=== PATIENT | male | born 1950 | race Caucasian/White ===

== ENCOUNTER 2016-10-01 14:00 | Outpatient (RCR) | payer MEDICARE, MEDICAID | END 2016-10-07 12:00 | disposition home or self-care (01) | LOC: ST 14:00 | PROVIDERS: ATTEND Family Medicine | DX: R05 Cough (principal); G20 Parkinson's disease; R13.19 Other dysphagia | CPT/HCPCS: 92526; 92610; G8996; G8997 ==

== ENCOUNTER → 2016-10-04 | Outpatient (CLI) | payer MEDICARE, MEDICAID | LOC: EMS 16:07 | DX: Z53.20 Procedure and treatment not carried out because of patient's decision for unspecified reasons (principal) ==

== ENCOUNTER → 2016-10-08 | Outpatient (CLI) | payer MEDICARE, MEDICAID | LOC: EMS 12:34 | DX: Z53.20 Procedure and treatment not carried out because of patient's decision for unspecified reasons (principal) ==

== ENCOUNTER → 2016-11-30 | Outpatient (CLI) | payer MEDICARE, MEDICAID ==
[~2016-11-30] MED LIST: ASPI-586 PO; ATOR80TA PO; ATOR80TA73 PO; CARB200T PO; CARV6.25 PO; CLON0.5T3 PO; CLON2TAB3 PO; CLOP75TA3 PO; DOCU100C8 PO; FURO-125 PO; GLIM4TAB PO; GLYB2.5T4; GLYB5TAB6 PO; LEVE500T PO; LEVO125T6 PO; LOSA1TAB70 PO; LSNP10T PO; LVT.05T PO; LVT.1T PO; MULT-1034 PO; PHEN100C5 PO; POTA10TA52 PO; PRAV40TA2 PO; PRAV80TA2 PO; PSYL660P17 PO; SIMV40TA2; SRTR100T PO; STOOL SOFTENER PO
== END ==
LOC: EMS 02:45
PROVIDERS: ATTEND Family Medicine
DX: Z53.20 Procedure and treatment not carried out because of patient's decision for unspecified reasons (principal)

== ENCOUNTER 2016-12-08 07:16 | Emergency (ER) | payer MEDICARE, MEDICAID ==
[~2016-12-08] VITALS: Ht 172.7 cm; Wt 90.0 kg
[~2016-12-08 07:16] MED LIST changes: -CARB1TAB22 PO
[2016-12-08] MEDS ORDERED: SODIUM CHLORIDE FLUSH 10 ML SYR IV PRN (07:25)
[2016-12-08] MEDS ORDERED: SODIUM CHLORIDE FLUSH 3 ML SYR IV ONE (07:25)
[2016-12-08] MEDS ORDERED: PROMETHAZINE HCL INJ 12.5 MG in SODIUM CHLORIDE 25 ML IV ONE (07:25)
--- NOTE | 2016-12-08 07:35 | NUR ---
This nurse attaches EMS initiated liter of NS to liter bag infusing through machine. D/T Phenergan infusion, ED liter can only transfuse at 450/hr. Ok'd with ED physician.
[2016-12-08 07:53] LABS: MEAN CORPUSCULAR VOLUME 94 FL (80-100); MEAN PLATELET VOLUME 10.7 FL (6.0-9.5); PLATELET COUNT 450 10^3uL (150-450); WHITE BLOOD COUNT 21.47 10^3uL (4.0-11.0)
[2016-12-08 08:08] LABS: ALBUMIN 2.9 g/dL (3.4-5.0); ALKALINE PHOSPHATASE 194 U/L (38-126); ANION GAP 13.4 MEQ/L (3-15); BUN/CREATININE RATIO 45 (10-20); CALCULATED IONIZED CALCIUM 3.6 mg/dL (3.8-4.6); CREATINE KINASE 44 U/L (55-170); TOTAL PROTEIN 6.8 g/dL (6.4-8.5)
[2016-12-08 08:12] LABS: BAND NEUTROPHILS % 4 % (0-6); LYMPHOCYTES # 3.6 #; MONOCYTES # 1.5 #; MONOCYTES % 7 % (3-11)
[2016-12-08 08:13] LABS: EOSINOPHILS % 1 % (0-4); RBC MORPH NORMAL (NORMAL); SEGMENTED NEUTROPHILS % 71 % (51-67); TOTAL CELLS COUNTED 100
--- NOTE | 2016-12-08 08:25 | Diagnostic Imaging Report ---
INDICATION: Nausea, vomiting, pain. Study compared 06/09/2016. FINDINGS: There is air dilatation of small bowel loops in the left upper quadrant measuring up to 3.5 cm in diameter. The upright views revealed no convincing air-fluid levels or free gas. No pneumatosis. IMPRESSION: Nonspecific gas pattern. Some air ectasia of upper abdominal small bowel loops without air-fluid level or free gas. Early or partial obstruction could not be differentiated from regional ileus or enteritis. No evidence for free air. Dictated by: Dictated on workstation # [id number]
[2016-12-08] MEDS ORDERED: fentaNYL 100 MCG/2 ML VIAL IV ONE (09:40)
--- NOTE | 2016-12-08 10:14 | Diagnostic Imaging Report ---
PROCEDURE: CT abdomen and pelvis with contrast. TECHNIQUE: Multiple contiguous axial images were obtained through the abdomen and pelvis after administration of intravenous contrast. INDICATION: Ileus, nausea, and vomiting. There is abnormal thickening of the quinonez of the greater and lesser curvature of the stomach at the proximal body, fundus, and cardia. The segments of abnormal thickened gastric wall showed mural air and emphysematous gastritis. The draining venous system about the lesser and greater curvature shows intraluminal venous gas which extends into the liver and into the peripheral anti-dependent portal venous branches. The celiac artery, its primary branches, the superior mesenteric, and the inferior mesenteric arteries were all widely patent. The distal gastric body and its antrum thin walled, non thickened, without mural air. The duodenum, the small and the large bowel quinonez all non thickened. There were no other areas of enteric mural gas. There was no pneumatosis intestinalis. There is some gas in the gastric quinonez dissecting through the cardia and into the distal thoracic esophagus. The distal thoracic esophagus irregular, nodular, and thickened with its single wall thickness of 1.6 cm and that structure measuring short-axis outer wall/outer wall diameter of 3.0 cm. I am told that the patient has been vomiting and retching. It is conceivable that the esophageal thickening is from a tear and some intramural hematoma and that the retching itself accounts for gastric emphysema. Other etiologies such as emphysematous gastritis, however, could not be excluded. Again this would be a very unusual location for arterial insufficiency accounting for ischemia, and we note no arterial obstruction. There is no free intraperitoneal air or findings of a transmural perforation. Aside from the portal venous air, the liver appeared otherwise unremarkable. The spleen is negative. There is a benign fatty nodule in the left adrenal gland, 1.8 cm. The pancreas appeared normal. There are bilateral renal parapelvic cysts greater left without hydronephrosis. The kidneys nonacute. There is no ascites, abscess, hematoma, or loculated fluid collection. IMPRESSION: Thickening of the quinonez of the proximal stomach along its greater and lesser curvatures through the cardia and into the distal esophagus. The areas of abnormal gastric wall thickening are accompanied by pneumatosis and gastric emphysema. There is heterogeneous thickening and irregular appearance of the distal thoracic esophagus. A unifying consideration in the history provided would raise the question of esophageal mucosal tear and intramural hemorrhage owing to the vomiting and the vomiting-inducing gastric emphysema with the venous drainage of this air accounting for the intrahepatic portal venous air. Infectious etiology such as emphysematous gastritis, however, could not be excluded; and given the abnormal appearance of the distal thoracic esophagus, its neoplastic infiltration cannot be excluded. Endoscopic correlation recommended. No free air or findings of a transmural perforation. The distal stomach, the duodenum, the small and the large bowel were unremarkable aside from a suggestion of mild regional small bowel ileus in the upper abdomen. Benign incidental renal parapelvic cyst. No biliary dilatation. No ascites. No arterial obstruction demonstrated. CRITICAL FINDINGS have been discussed by phone with the emergency room physician prior to this dictation. Report was stat faxed to ER @ [facility]; SYLVIA Foster, @ 10:13 AM/marcos. Dictated by: Dictated on workstation # [id number]
[2016-12-08] MEDS ORDERED: CARB1TAB22 PO (10:33)
--- NOTE | 2016-12-08 10:35 | NUR ---
DR TOBIAS, HOSPITALIST AT [facility] PAGED AND SPEAKING WITH DR LIM REGARDING PT
--- NOTE | 2016-12-08 10:40 | NUR ---
HOSPITALIST AT [facility] DENIED PT TRANSFER, [facility] PAGED PER DR LIM
--- NOTE | 2016-12-08 10:58 | NUR ---
Patient report given to ZANA Shrestha. Care relinquished.
--- NOTE | 2016-12-08 11:05 | NUR ---
DR LIM GOT ACCEPTANCE FROM DR CHEEK AT [facility]
--- NOTE | 2016-12-08 11:12 | Surgical Consult (E) ---
Surgical Consult PCP: Benny Freeman MD CC: Vomiting HPI: Midepigastric pain, sharp, 9/10 to back with intractable vomiting that started at 0500 today. No modifying factors, but symptoms have eased off now. EMS reports vomitus was feculent, brown. Several month history of dysphagia to solids and 13 lb weight loss. BM's intermittent constipation and diarrhea. No blood or melena. ROS: CONSTITUTION: Denies fever or chills. HEENT: No change in vision or hearing. No sores in mouth, sore throat. CV: No chest pain, palpitations. PULM: No cough, shortness of breath, difficulty breathing. GI: See HPI. Last oral intake was yesterday evening around 6. : No dysuria. No blood in urine. HEME/LYMPH: No easy bruising or bleeding. No swollen glands. Coded Allergies: aspartame (Verified Adverse Reaction, Unknown, SEIZURE, 06/07/16) ether (Verified Adverse Reaction, Unknown, SEIZURES, 06/07/16) thiopental (Verified Adverse Reaction, Unknown, SEIZURES, 06/07/16) Uncoded Allergies: SODIUM PENTATHOL (Adverse Reaction, Unknown, SEIZURES, 02/25/14) Active Scripts Docusate Sodium 100 Mg [id number] Mg PO BID PRN CONSTIPATION #60 CAP Ref 0 Prov:JOHNATHAN MENCHACA MD 06/10/16 Reported Medications Carbidopa/Levodopa (Carbidopa-Levodopa 25mg-250mg)1 Each Tablet1 Tab PO BID PRN TREMORS 12/08/16 Mu-Vits-Min Th/Lycopene/Lutein (Centrum Silver Tablet)1 Each Tablet1 Each PO DAILY 06/07/16 Glimepiride 4 Mg Tablet4 Mg PO BID 06/07/16 Levothyroxine Sodium 125 Mcg [id number] Mcg PO DAILY@0700 06/07/16 Sertraline HCl 100 Mg [id number] Mg PO DAILY 06/07/16 Losartan/Hydrochlorothiazide (Losartan-HCTZ 100-25 mg Tab)1 Each Tablet1 Each PO DAILY 09/21/15 Atorvastatin (Lipitor)80 Mg Okijgt47 Mg PO HS 09/21/15 Psyllium Husk (Metamucil)660 Gm Mvdeyq645 Gm PO TID 09/21/15 Clonazepam 2 Mg Tablet3 Mg PO TID 02/25/14 Phenytoin Sodium Extended (Dilantin)100 Mg Dtpjxal988 Mg PO DAILY@2100 08/06/13 Carvedilol (Coreg)6.25 Mg Tablet6.25 Mg PO BID WITH MEALS 05/26/13 Levetiracetam (Keppra)500 Mg Tab1,000 Mg PO TID 01/15/13 Clopidogrel Bisulfate (Plavix)75 Mg Zxhjem84 Mg PO DAILY Cardiac problems 11/25/12 Phenytoin Sodium Extended (Dilantin)100 Mg Wnqduix562 Mg PO DAILY@0900 11/25/12 PMH: Parkinson's, epilepsy, COPD, asthma, hypertension, Type 2 diabetes mellitus , CAD. PSH: Colonoscopy, cholecystectomy, coronary stents x 2 Social History: Retired, single, in independent living with home health. Smoked as a youth, but quit. Denies alcohol or illicit drugs. FMH: Parents history unknown, no siblings or children. PHYSICAL EXAM GEN: Thin, well developed. Currently in no distress. Alert and oriented. 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 Poor dentition. No neck mass. CV: RR no murmurs or gallops. LUNGS: Clear to P & A. No CVAT. ABD: Soft, with minimal epigastric tenderness to deep palpation. Minimal voluntary guarding. No rebound. Hypoactive BS. No mass, organomegaly, or hernia. EXTREMITIES: No lymphadenopathy. No edema. INTEG: No rash or jaundice. Poor skin turgor. Vital Signs Date Time Temp Pulse Resp B/P Pulse Ox O2 Delivery O2 Flow Rate FiO2 12/08/16 07:16 96.6 71 26 55/31 94 Room Air Lab Results: Laboratory Results Past 24 Hrs 12/08/16 06:55: Absolute Band Neutrophils 0.8, Alanine Aminotransferase (ALT/SGPT) 40, Albumin 2.9, Albumin/Globulin Ratio 0.743, Alkaline Phosphatase 194, Anion Gap 13.4, Aspartate Amino Transf (AST/SGOT) 36, BUN/Creatinine Ratio 45, Band Neutrophils % 4, Basophils # (Auto) , Basophils # (Manual) 0.0, Basophils % (Manual) 0, Basophils (%) (Auto) , Blood Morphology Comment Normal, Blood Urea Nitrogen 33, C-Reactive Protein 7.80, Calcium Level 8.1, Calcium/Ionized Calcium Ratio 3.6, Calculated Osmolality 275, Carbon Dioxide Level 26, Chloride Level 99, Creatine Kinase MB 0.8, Creatinine 0.73, Differential Total Cells Counted 100, Eosinophils # 0.2, Eosinophils # (Auto) , Eosinophils % (Manual) 1, Eosinophils (%) (Auto) , Estimat Glomerular Filtration Rate 129.3, Estimated GFR (Non- 106.9, Glucose Level 219, Hematocrit 25.30, Hemoglobin 8.6, Lipase 194, Lymphocytes # 3.6, Lymphocytes # (Auto) , Lymphocytes % (Manual) 17 , Lymphocytes (%) (Auto) , Mean Corpuscular Hemoglobin 32.0, Mean Corpuscular Hemoglobin Concent 34.0, Mean Corpuscular Volume 94, Mean Platelet Volume 10.7, Monocytes # 1.5, Monocytes # (Auto) , Monocytes % (Manual) 7, Monocytes (%) ( Auto) , AA-Ejp-P-Type Natriuretic Peptide 136, Neutrophils # 15.2, Neutrophils # (Auto) , Neutrophils (%) (Auto) , Platelet Count 450, Potassium Level 3.7, Prothromb Time International Ratio 1.1, Prothrombin Time 12.1, Red Blood Count 2.69, Red Cell Distribution Width 14.1, Segmented Neutrophils % 71, Sodium Level 135, Thyroid Stimulating Hormone (TSH) 1.85, Total Bilirubin 0.4, Total Creatine Kinase 44, Total Protein 6.8, Troponin I < 0.012, White Blood Count 21.47 12/08/16 07:45: Lactic Acid Level 1.6 Imaging: CT and plain films show ileus pattern. Stomach wall thickened with intramural air. Air also in the portal tree. No free air, abscess or free fluid. Summary of Old Records He was admitted in June 2016 with lower GI bleeding, but stable and resolved. Impression: Gastric pneumatosis with associated portal venous air. Possibly due to mucosal tear from vomiting. However chronic weight loss, intolerance of solid food worrisome for gastric neoplasia. Vessels opacify on CT, but ischemic bowel also a possibility. Multiple medical problems as outlined above. Plan: He will need medical optimization and EGD, and possible laparoscopy. Given medical complexity and potential need for advanced surgical care, I feel the patient should be transferred to a tertiary medical center. Patient is agreeable. End of Report . BRENT FOLEY MD Dec 08, 2016 11:00
--- NOTE | 2016-12-08 11:30 | NUR ---
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 AUDRA STATES SHE WILL BE AT [facility] TO SEE HIM IN 2 1/2 HRS. THIS WAS RELAYED TO PT.
[2016-12-08 11:34] VITALS: BP 106/46
== END 2016-12-08 11:48 | disposition short-term general hospital (02) ==
LOC: ED 07:17 → UNDOADMIN 09:59 → ICU 09:59 → ED 11:48
DX: K29.60 Other gastritis without bleeding (principal); J43.8 Other emphysema; E11.9 Type 2 diabetes mellitus without complications; I10 Essential (primary) hypertension; Z87.891 Personal history of nicotine dependence; R29.6 Repeated falls
CPT/HCPCS: 36415; 74022; 74177; 80053; 82550; 82553; 83605; 83690; 83880; 84443; 84484; 85025; 85610; 86140; 96361; 96365; 96375; 99284; J2550; J3010; J7030; Q9967

== ENCOUNTER → 2016-12-08 | Outpatient (CLI) | payer MEDICARE, MEDICAID ==
[~2016-12-08] MED LIST changes: +CARB1TAB22 PO
== END ==
LOC: EMS 01:52
PROVIDERS: ATTEND Family Medicine
DX: M25.562 Pain in left knee (principal); W01.0XXA Fall on same level from slipping, tripping and stumbling without subsequent striking against object, initial encounter; Y93.89 Activity, other specified; Y92.002 Bathroom of unspecified non-institutional (private) residence as the place of occurrence of the external cause; R42 Dizziness and giddiness; J43.8 Other emphysema

== ENCOUNTER 2016-12-17 18:18 | Emergency (ER) | payer MEDICARE, MEDICAID ==
[~2016-12-17] VITALS: Ht 172.7 cm; Wt 100.0 kg
[~2016-12-17 18:18] MED LIST changes: -AC325T PO; -AMOX-358 PO; -ONDA4TAB8 PO; -PANT40TA3 PO
--- OUTSIDE RECORDS SUMMARY | 2016-12-17 18:23 | XMS REPORT | Continuity of Care Document ---
Author Author [facility] Address Unknown Phone Unavailable Care Team Providers Care Hub Bander Name Role Phone KWAKU, JEOVANNY Omalley MD PCP [phone] Insurance Providers Payer Name Policy Number Subscriber Name Relationship Medicare A And B [id number] Katlyn Velázquez 16 Self / Same As Patient [facility] [employer] [id number] Katlyn Velázquez 18 Self / Same As Patient Advance Directives Directive Response Recorded Date/Time Advanced Directives Unknown 12/08/16 7:16am Type Durable Power of Furniture Dipper 06/07/16 2:00pm Type Durable Power of Furniture Dipper 06/07/16 2:00pm Other audra dpoa 06/07/16 2:00pm Chief Complaint and Reason for Visit Chief Complaint GI Complaint Reason for Visit [id number] Problems Active Problems Medical Problem Onset Date Status Acute blood loss anemia Unknown Acute Constipation 08/06/2013 Chronic Dysphagia Unknown Acute Elevated CPK 02/25/2014 Acute 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 01/15/2013 Chronic Fall from chair or bed ~02/25/2014 Acute Fall on same level from slipping 06/02/2013 Resolved Feeling suicidal 11/25/2012 Resolved GI bleed Unknown Acute Gastric emphysema Unknown Acute Headache 01/15/2013 Resolved Hx of colonic polyps Unknown Acute MUSCLE WEAKNESS (GENERALIZED) 02/25/2014 Acute Muscle weakness ~02/25/2014 Acute Nausea 05/26/2013 Resolved Rectal bleeding Unknown Acute SIRS 02/25/2014 Acute Vasovagal syncope 08/06/2013 Resolved Medications Current Home Medications Medication Dose Units Route Directions Days/Qty Instructions Start Date Phenytoin Sodium Extended 100 Mg 300 Mg ORAL Daily@0900 11/25/12 Clopidogrel Bisulfate 75 Mg 75 Mg ORAL Daily for Cardiac Problems Levetiracetam 500 Mg 1,000 Mg ORAL Three Times A Day 01/15/13 Carvedilol 6.25 Mg 6.25 Mg ORAL Twice A Day With Meals 05/26/13 Phenytoin Sodium Extended 100 Mg 400 Mg ORAL Daily@2100 08/06/13 Clonazepam 2 Mg 3 Mg ORAL Three Times A Day 02/25/14 Psyllium Husk 660 Gm 660 Gm ORAL Three Times A Day 09/21/15 Atorvastatin 80 Mg 80 Mg ORAL Bedtime 09/21/15 Losartan/Hydrochlorothiazide 1 Each 1 Each ORAL Daily 09/21/15 Sertraline Hcl (Zoloft) 100 Mg 100 Mg ORAL Daily 06/07/16 Levothyroxine Sodium 125 Mcg 125 Mcg ORAL Daily@0700 06/07/16 Glimepiride 4 Mg 4 Mg ORAL Twice A Day 06/07/16 Mu-Vits-Min Th/Lycopene/Lutein 1 Each 1 Each ORAL Daily 06/07/16 Docusate Sodium 100 Mg 100 Mg ORAL Twice A Day as needed for Constipation 60 06/10/16 Carbidopa/Levodopa 1 Each 1 Tab ORAL Twice A Day as needed for Tremors 12/08/16 Past Home Medications Medication Directions Ordered Status Carbamazepine 200 Mg Tablet, Oral 11/25/12 Discontinued Simvastatin (Zocor) 40 Mg Tablet, 11/25/12 Discontinued Levothyroxine Sodium (Synthroid) 50 Mcg Tablet, 125 Mcg Oral Daily 11/25/12 Discontinued Glyburide 2.5 Mg Tablet, 11/25/12 Discontinued Potassium Bicarbonate/Cit Ac 10 Meq Tablet.eff, 10 Meq Oral Daily 01/15/13 Discontinued Lisinopril (Zestril) 10 Mg Tablet, 10 Mg Oral Daily 01/15/13 Discontinued Furosemide 20 Mg Tablet, 20 Mg Oral Daily 01/15/13 Discontinued Atorvastatin Calcium 80 Mg Tablet, 80 Mg Oral Daily 01/15/13 Discontinued Pravastatin Sodium 40 Mg Tablet, 40 Mg Oral Daily 05/26/13 Discontinued [Rx Stool Softener] , 1 Cap Oral Every Pm 12/05/13 Discontinued Glyburide 5 Mg Tablet, 10 Mg Oral Twice A Day 02/25/14 Discontinued Pravastatin Sodium 80 Mg Tablet, 80 Mg Oral Bedtime 02/25/14 Discontinued Glyburide 5 Mg Tablet, 10 Mg Oral Daily@0800 03/01/14 Discontinued Levothyroxine Sodium (Synthroid) 100 Mcg Tablet, 100 Mcg Oral Daily 03/01/14 Discontinued Aspirin 81 Mg Tablet.dr, 81 Mg Oral Daily 09/21/15 Discontinued Social History Social History Problem Response Recorded Date/Time Onset Date Status Exposure to occupational hazards No 06/07/2016 2:00pm Query Response Start Date Stop Date Smoking Status Former smoker Hospital Discharge Instructions No hospital discharge instructions. Plan of Care Discharge Date 12/08/16 11:48am Disposition 02 XFER S[facility]-TRM HOSP - ACUTE Condition at Discharge Stable Prescriptions See Medication Section Referrals JEOVANNY AMES MD - Additional Instructions/Education Some of your test results may not be complete prior to your leaving the Emergency Department. The Emergency Department is not authorized to give test results over the phone. Please contact the doctor's office listed in this packet of information for your final results. Follow up with your primary care physician or return to the Emergency Department for worsening or worrisome symptoms. * Emergency Department phone number: [phone], x [phone]* MEDICAL RECORD If you need copies of your X-rays, call [phone]. If you need copies of your medical record, including lab results, a signed authorization for release of records will be required. A telephone call for release of Health Information is not allowed. BILLING Billing can sometimes be confusing and frustrating. To help avoid confusion in the future, please take a moment to acquaint yourself with the billing parties for services. [employer] Emergency Room Services [facility] Physician Services [facility] X-[facility] Patients will receive bills for services from the appropriate provider. If you have any questions about your [facility] bill, our staff will be happy to assist you. Please call [phone], and ask for the billing department. THANK YOU for choosing [facility] as your emergency care provider! Care Plan and Goals ~~Discharge Care Plan~~ Problem: Nausea, vomiting or diarrhea Goal: Decrease in nausea, vomiting or diarrhea Instructions: Encourage fluids approximately 6-8 glasses of water or noncarbonated fluids. Take medication(s) as directed. Follow home discharge instructions. Follow up with primary care physicians or flat knitter helper as directed. Functional Status No functional status results. Allergies, Adverse Reactions, Alerts Allergen Type Severity Reaction Status Last Updated ether Adverse Reaction Unknown SEIZURES Active 06/07/16 Aspartame Adverse Reaction Unknown SEIZURE Active 06/07/16 Thiopental Adverse Reaction Unknown SEIZURES Active 06/07/16 SODIUM PENTATHOL Adverse Reaction Unknown SEIZURES Active 02/25/14 Immunizations Name Given Type Status Date Influenza Vaccine Received if Current 06/16/13 Historical Historical Vital Signs Acute Vital Signs Vital Response Date/Time Temperature (Fahrenheit) 96.6 12/08/2016 11:34am Pulse 62 bpm 12/08/2016 11:34am Respirations 20 12/08/2016 11:34am Height 5 ft 8 in Weight 198 lb Body Mass Index 30.0 kg/m^2 Results Pending Laboratory Results Test Name Collection Date/Time Procedures No known history of procedures. Encounters Encounter Location Arrival/Admit Date Discharge/Depart Date Attending Provider Departed Emergency Room [facility] 12/08/16 7:17am 12/08/16 11:48am BRENT FOLEY MD Registered Clinic [facility] 12/08/16 6:45am JA LIM DO Registered Clinic [facility] 11/30/16 2:45am JA LIM DO Recent Diagnosis
[2016-12-17 18:40] LABS: BASOPHILS % (AUTO) 0 % (0-2); EOSINOPHILS # (AUTO) 0.9 10^3uL; EOSINOPHILS % (AUTO) 5 % (0-4); MEAN CORPUSCULAR HEMOGLOBIN 30.6 PG (26.0-34.0); MEAN CORPUSCULAR HGB CONC 31.8 g/dL (31.0-37.0); MEAN CORPUSCULAR VOLUME 96 FL (80-100); MEAN PLATELET VOLUME 9.6 FL (6.0-9.5); MONOCYTES # (AUTO) 1.7 X10^3; MONOCYTES % (AUTO) 10 % (3-11); NEUTROPHILS # (AUTO) 12.8 X10^3; NEUTROPHILS % (AUTO) 74 % (51-67); PLATELET COUNT 376 10^3uL (150-450)
[2016-12-17] MEDS: DEXTROSE 50% 25 GM/50 ML SYRINGE IV ONE (18:40)
[2016-12-17 18:47] LABS: ALBUMIN 2.4 g/dL (3.4-5.0); ALKALINE PHOSPHATASE 173 U/L (38-126); ANION GAP 11.7 MEQ/L (3-15); BUN/CREATININE RATIO 13 (10-20); CALCULATED IONIZED CALCIUM 3.7 mg/dL (3.8-4.6); TOTAL PROTEIN 6.1 g/dL (6.4-8.5)
[2016-12-17] MEDS ORDERED: PANT40TA3 PO (18:58)
--- NOTE | 2016-12-17 19:08 | Diagnostic Imaging Report ---
PROCEDURE: CT head without contrast. TECHNIQUE: Multiple contiguous axial images were obtained through the brain without the use of intravenous contrast. INDICATION: 66-year-old male injured in fall, presents with headache. COMPARISONS: 01/15/13 FINDINGS: Midline structures are not displaced. There is age-appropriate senescent changes with some involutional changes and generalized atrophy. Few scattered nonspecific white matter changes most likely represent areas of chronic microvascular ischemic change. Haley-white differentiation is well-maintained. There is no sulcal effacement. There are no abnormal extra-axial fluid collections or hemorrhage. Basilar cisterns appear normal. Sinuses, orbits and mastoid air cells are grossly normal. Bone windows show no calvarial changes. IMPRESSION: Senescent brain with some involutional changes and generalized atrophy but no evidence of acute findings identified by nonenhanced CT criteria. Dictated by: Dictated on workstation # [id number]
--- NOTE | 2016-12-17 19:09 | Diagnostic Imaging Report ---
INDICATION: A 66-year-old male presents with weakness, injured in fall, chest pain. COMPARISONS: 12/14/2016. FINDINGS: Single view of the chest shows cardiac contour to be enlarged. There is central venous congestion. Background chronic parenchymal changes are seen. Left diaphragmatic silhouette is slightly obscured, suggesting a left lower lobe infiltrate. Soft tissues and bony thorax are normal. IMPRESSION: 1. Borderline cardiomegaly with mild central venous congestion. 2. Some perihilar and left basilar alveolar infiltrates are seen. Dictated by: Dictated on workstation # [id number]
[2016-12-17 20:40] VITALS: BP 119/58
[2016-12-18] MEDS ORDERED: AC325T PO (20:09)
[2016-12-18] MEDS ORDERED: AMOX-358 PO (20:09)
== END 2016-12-17 21:17 | disposition home or self-care (01) ==
LOC: ED 18:19
DX: S09.90XA Unspecified injury of head, initial encounter (principal); E11.649 Type 2 diabetes mellitus with hypoglycemia without coma; W18.39XA Other fall on same level, initial encounter; Y92.129 Unspecified place in nursing home as the place of occurrence of the external cause; Z79.84 Long term (current) use of oral hypoglycemic drugs; Z79.899 Other long term (current) drug therapy
CPT/HCPCS: 36415; 70450; 71010; 80053; 80177; 80185; 82550; 82553; 83880; 84484; 85025; 86140; 93005; 96374; 99285; G0480; J7030; 80320

== ENCOUNTER → 2016-12-17 | Outpatient (CLI) | payer MEDICARE, MEDICAID ==
[~2016-12-17] MED LIST changes: +AC325T PO; +AMOX-358 PO; +CARB1TAB22 PO; +ONDA4TAB8 PO; +PANT40TA3 PO
== END ==
LOC: EMS 18:14
PROVIDERS: ATTEND Emergency Medicine
DX: S00.81XA Abrasion of other part of head, initial encounter (principal); W19.XXXA Unspecified fall, initial encounter; Y92.89 Other specified places as the place of occurrence of the external cause

== ENCOUNTER 2016-12-18 19:26 | Emergency (ER) | payer MEDICARE, MEDICAID ==
[~2016-12-18] VITALS: Ht 172.7 cm; Wt 88.7 kg
[~2016-12-18 19:26] MED LIST changes: -AC325T PO; -AMOX-358 PO; -ONDA4TAB8 PO
--- OUTSIDE RECORDS SUMMARY | 2016-12-18 19:32 | XMS REPORT | Continuity of Care Document ---
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 Name Role Phone KWAKU, JEOVANNY Omalley MD PCP [phone] Insurance Providers Payer Name Policy Number Subscriber Name Relationship Medicare A And B [id number] Katlyn Velázquez 16 Self / Same As Patient [facility] [employer] [id number] Katlyn Velázquez 16 Self / Same As Patient Advance Directives Directive Response Recorded Date/Time Advanced Directives Unknown 12/17/16 6:18pm Type Durable Power of Belt Back Operator 12/17/16 6:18pm Type Durable Power of Belt Back Operator 12/17/16 6:18pm Other audra dpoa 12/17/16 6:18pm Chief Complaint and Reason for Visit Chief Complaint Altered Neurologic Status Reason for Visit Hypoglycemia Minor head injury Fall Problems Active Problems Medical Problem Onset Date Status Acute blood loss anemia Unknown Acute Constipation 08/06/2013 Chronic Dysphagia Unknown Acute Elevated CPK 02/25/2014 Acute 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 01/15/2013 Chronic Fall Unknown Acute Fall from chair or bed ~02/25/2014 Acute Fall on same level from slipping 06/02/2013 Resolved Feeling suicidal 11/25/2012 Resolved GI bleed Unknown Acute Gastric emphysema ~12/08/2016 Acute Headache 01/15/2013 Resolved Hx of colonic polyps Unknown Acute Hypoglycemia Unknown Acute MUSCLE WEAKNESS (GENERALIZED) 02/25/2014 Acute Minor head injury Unknown Acute Muscle weakness ~02/25/2014 Acute Nausea 05/26/2013 [...] Mg ORAL Three Times A Day 02/25/14 Atorvastatin 80 Mg 80 Mg ORAL Bedtime 09/21/15 Losartan/Hydrochlorothiazide 1 Each 1 Each ORAL Daily 09/21/15 Sertraline Hcl (Zoloft) 100 Mg 100 Mg ORAL Daily 06/07/16 Levothyroxine Sodium 125 Mcg 125 Mcg ORAL Daily@0700 06/07/16 Glimepiride 4 Mg 4 Mg ORAL Twice A Day 06/07/16 Carbidopa/Levodopa 1 Each 1 Tab ORAL Twice A Day 12/08/16 Pantoprazole Sod 40 Mg 40 Mg ORAL Daily 12/17/16 Past Home Medications Medication Directions Ordered Status [...] Softener] , 1 Cap Oral Every Pm 08/06/13 Discontinued Glyburide 5 Mg Tablet, 10 Mg Oral Twice A Day 02/25/14 Discontinued Pravastatin Sodium 80 Mg Tablet, 80 Mg Oral Bedtime 02/25/14 Discontinued Glyburide 5 Mg Tablet, 10 Mg Oral Daily@0800 03/01/14 Discontinued Levothyroxine Sodium (Synthroid) 100 Mcg Tablet, 100 Mcg Oral Daily 03/01/14 Discontinued Aspirin 81 Mg Tablet.dr, 81 Mg Oral Daily 09/21/15 Discontinued Psyllium Husk 660 Gm Powder, 660 Gm Oral Three Times A Day 09/21/15 Discontinued Mu-Vits-Min Th/Lycopene/Lutein 1 Each Tablet, 1 Each Oral Daily 06/07/16 Discontinued Docusate Sodium 100 Mg Capsule, 100 Mg Oral Twice A Day as needed for Constipation 06/10/16 Discontinued Social History Social History Problem Response Recorded Date/Time Onset Date Status Exposure to occupational hazards No 06/07/2016 2:00pm Query Response Start Date Stop Date Smoking Status Former smoker Hospital Discharge Instructions No hospital discharge instructions. Plan of Care Discharge Date 12/17/16 9:17pm Disposition 01 HOME OR SELF-CARE Condition at Discharge Stable Instructions/Education Provided Low Blood Sugar, Adult (DC) Minor Head Injury (DC) Prescriptions See Medication Section Referrals JEOVANNY AMES MD - Additional Instructions/Education care home orders: Neurochecks every 2 hrs overnight. Accuchecks every 1 hr X 3 hrs, and then q2h overnight. Hold glimepride until call PCP tomorrow. Resume all other medications. Some of your test results may not [...] worrisome symptoms. * Emergency Department phone number: [phone], x [phone]* MEDICAL RECORD If you need copies of your X-rays, call [phone] x [phone]. If you need copies of [...] the billing parties for services. SERVICE BILLING CONSTITUTION PARTY Emergency Room Services [facility] Patients will receive bills for services from the appropriate provider. If you have any questions about your [facility] bill, our staff will be happy to assist you. Please call [phone], and ask for the billing department. THANK YOU for choosing [facility] as your emergency care provider! Care Plan and Goals ~~Discharge Care Plan~~ Problem: Head injury Goal: Decreased pain from head injury, return to prior level of alertness. Instructions: Do not leave patient alone for 24 hours, check the patient every 2 hours for alertness. Monitor patient for new symptoms, such as vomiting, unequal pupils, confusion or unusual behavior for the patient. Limit physical activity until cleared by regular physician. Take medication(s) as directed. Keep a log of times and amount of medication taken. Follow up with regular physician as directed. Functional Status No functional status results. Allergies, Adverse Reactions, Alerts Allergen Type Severity Reaction Status Last Updated ether Adverse Reaction Unknown SEIZURES Active 12/17/16 Aspartame Adverse Reaction Unknown SEIZURE Active 12/17/16 Thiopental Adverse Reaction Unknown SEIZURES Active 12/17/16 SODIUM PENTATHOL Adverse Reaction Unknown SEIZURES Active 02/25/14 Immunizations Name Given Type Status Date Influenza Vaccine Received if Current 06/16/13 Historical Historical Vital Signs Acute Vital Signs Vital Response Date/Time Temperature (Fahrenheit) 98.4 12/17/2016 8:40pm Pulse 65 bpm 12/17/2016 8:40pm Respirations 16 12/17/2016 8:40pm Height 5 ft 8 in Weight 220 lb Body Mass Index 33.0 kg/m^2 Results Pending Laboratory Results Test Name Collection Date/Time Procedures Procedure Status Date Provider(s) ROUTINE VENIPUNCTURE Completed 12/08/16 X-RAY EXAM SERIES ABDOMEN Completed 12/08/16 CT ABD & PELV W/CONTRAST Completed 12/08/16 COMPREHEN METABOLIC PANEL Completed 12/08/16 ASSAY OF CK (CPK) Completed 12/08/16 CREATINE MB FRACTION Completed 12/08/16 ASSAY OF LACTIC ACID Completed 12/08/16 ASSAY OF LIPASE Completed 12/08/16 ASSAY OF NATRIURETIC PEPTIDE Completed 12/08/16 ASSAY THYROID STIM HORMONE Completed 12/08/16 ASSAY OF TROPONIN QUANT Completed 12/08/16 COMPLETE CBC W/AUTO DIFF WBC Completed 12/08/16 PROTHROMBIN TIME Completed 12/08/16 C-REACTIVE PROTEIN Completed 12/08/16 HYDRATE IV INFUSION ADD-ON Completed 12/08/16 THER/PROPH/DIAG IV INF INIT Completed 12/08/16 TX/PRO/DX INJ NEW DRUG ADDON Completed 12/08/16 EMERGENCY DEPT VISIT Completed 12/08/16 Completed 12/08/16 Completed 12/08/16 Completed 12/08/16 Completed 12/08/16 Encounters Encounter Location Arrival/Admit Date Discharge/Depart Date Attending Provider Departed Emergency Room [facility] 12/17/16 6:19pm 12/17/16 9:17pm JA LIM DO Registered Clinic [facility] 12/17/16 6:14pm HECTOR VEGA MD Registered Clinic [facility] 12/08/16 11:50am JA LIM DO Departed Emergency Room [facility] 12/08/16 7:17am 12/08/16 11:48am JA LIM DO Registered Clinic [facility] 11/30/16 2:45am JA LIM DO Recent Diagnosis
[2016-12-18] MEDS: SODIUM CHLORIDE FLUSH 10 ML SYR IV PRN ×2 (19:40→19:42)
[2016-12-18] MEDS ORDERED: AC325T PO (20:09)
[2016-12-18] MEDS ORDERED: AMOX-358 PO (20:09)
[2016-12-18 20:17] LABS: BASOPHILS % (AUTO) 0 % (0-2); EOSINOPHILS # (AUTO) 0.6 10^3uL; EOSINOPHILS % (AUTO) 5 % (0-4); LYMPHOCYTES # (AUTO) 2.3 X10^3; MEAN CORPUSCULAR HEMOGLOBIN 31.1 PG (26.0-34.0); MEAN CORPUSCULAR HGB CONC 32.1 g/dL (31.0-37.0); MEAN CORPUSCULAR VOLUME 97 FL (80-100); MEAN PLATELET VOLUME 9.7 FL (6.0-9.5); MONOCYTES # (AUTO) 1.2 X10^3; MONOCYTES % (AUTO) 12 % (3-11); NEUTROPHILS # (AUTO) 6.4 X10^3; NEUTROPHILS % (AUTO) 61 % (51-67); PLATELET COUNT 333 10^3uL (150-450); WHITE BLOOD COUNT 10.58 10^3uL (4.0-11.0)
[2016-12-18 20:25] LABS: ALBUMIN 2.5 g/dL (3.4-5.0); ANION GAP 11.7 MEQ/L (3-15); CALCULATED IONIZED CALCIUM 3.6 mg/dL (3.8-4.6); TOTAL PROTEIN 6.3 g/dL (6.4-8.5)
[2016-12-18 21:29] LABS: BILIRUBIN,URINE Negative (Negative); CLARITY,URINE Clear; COLOR,URINE Yellow; GLUCOSE, URINE (UA) Negative (Negative); LEUKOCYTE ESTERASE ,URINE Negative (Negative); UROBILINOGEN,URINE 0.2 mg/dL (0.2-1.0)
--- NOTE | 2016-12-18 21:34 | NUR ---
JENNY FROM [facility] CALLED AND REPORTED HE DID NOT EAT MUCH FOR SUPPER. RN ASKED IF OKAY FOR PT TO HAVE A MEAL TRAY AND HE SAID OK. SO ROOM TRAY BROUGHT DOWN BY SALES OPERATIONS DIRECTOR
[2016-12-18 21:55] VITALS: BP 108/63
--- NOTE | 2016-12-19 07:47 | Diagnostic Imaging Report ---
PROCEDURE: CT head without contrast. TECHNIQUE: Multiple contiguous axial images were obtained through the brain without the use of intravenous contrast. INDICATION: Fall, hit head yesterday. Comparison with 12/17/2016. FINDINGS: Mild cortical atrophy again noted. Ventricles are not dilated. There is no intracranial hemorrhage. No mass effect. Basal cisterns are clear. Mastoid air cells and paranasal sinuses are clear. No calvarial fractures. IMPRESSION: Mild atrophy with no acute changes demonstrated since previous exam. Dictated by: Dictated on workstation # [id number]
--- NOTE | 2016-12-19 07:53 | Diagnostic Imaging Report ---
INDICATION: Weakness. Comparison with 12/17/2016. FINDINGS: The lungs appear well-aerated. There continues to be some infiltrate with obscuration of the left hemidiaphragm. No evidence of pulmonary edema on today's exam. Right lung is clear. Right costophrenic angle is sharp. Heart remains mildly enlarged. IMPRESSION: Persistent density in the left lung base likely representing some infiltrate. Also probable small left basilar effusion. No significant change has occurred since previous exam. Dictated by: Dictated on workstation # [id number]
== END 2016-12-18 22:24 ==
LOC: EDBD 19:26 → ED 19:28
DX: S09.8XXA Other specified injuries of head, initial encounter (principal); W05.0XXA Fall from non-moving wheelchair, initial encounter; Z91.81 History of falling; Y92.009 Unspecified place in unspecified non-institutional (private) residence as the place of occurrence of the external cause; Z79.02 Long term (current) use of antithrombotics/antiplatelets; R53.1 Weakness; R41.0 Disorientation, unspecified
CPT/HCPCS: 36415; 70450; 71010; 80053; 81003; 85025; 87040; 99283; 99284

== ENCOUNTER → 2016-12-18 | Outpatient (CLI) | payer MEDICARE, MEDICAID ==
[~2016-12-18] MED LIST changes: +AC325T PO; +AMOX-358 PO; +ONDA4TAB8 PO; +PANT40TA3 PO
== END ==
LOC: EMS 19:20
PROVIDERS: ATTEND Emergency Medicine
DX: R11.2 Nausea with vomiting, unspecified (principal); E11.9 Type 2 diabetes mellitus without complications; Z91.81 History of falling

== ENCOUNTER 2016-12-22 08:09 | Inpatient (IN) | payer MEDICARE, MEDICAID ==
[~2016-12-22] VITALS: Ht 185.4 cm; Wt 94.3 kg
[~2016-12-22 08:09] MED LIST changes: -ONDA4TAB8 PO
--- NOTE | 2016-12-22 08:22 | NUR ---
pt alert and oriented, knows what is going on, vomits bowel x2
[2016-12-22] MEDS ORDERED: SODIUM CHLORIDE FLUSH 3 ML SYR IV PRN (08:35)
[2016-12-22 08:57] LABS: MEAN PLATELET VOLUME 9.8 FL (6.0-9.5); PLATELET COUNT 482 10^3uL (150-450); WHITE BLOOD COUNT 20.28 10^3uL (4.0-11.0)
--- NOTE | 2016-12-22 09:19 | Diagnostic Imaging Report ---
Indication: Vomiting PA chest, supine and upright abdominal images were obtained. Bowel gas pattern is normal. There is no intraperitoneal free air. Lungs are clear. There are no pathologic masses or calcifications. Impression: Negative abdomen series. Dictated by: Dictated on workstation # [id number]
[2016-12-22 09:21] LABS: MEAN CORPUSCULAR HGB CONC 31.5 g/dL (31.0-37.0); MEAN CORPUSCULAR VOLUME 98 FL (80-100)
[2016-12-22 09:25] LABS: ALBUMIN 2.8 g/dL (3.4-5.0); ANION GAP 15.6 MEQ/L (3-15); CALCULATED IONIZED CALCIUM 3.7 mg/dL (3.8-4.6); TOTAL PROTEIN 6.6 g/dL (6.4-8.5)
[2016-12-22] MEDS ORDERED: DEXTROSE 50% 25 GM/50 ML SYRINGE ONE ×3 (09:29→13:56)
--- NOTE | 2016-12-22 09:32 | NUR ---
Lab reports glucose is 27. Reported to Dr. Camarillo. 50 ml amp of Dextroxe 50% given IV push right AC.
[2016-12-22] MEDS: SODIUM CHLORIDE FLUSH 10 ML SYR IV PRN (09:53)
[2016-12-22 09:57] LABS: BAND NEUTROPHILS % 0 % (0-6); EOSINOPHILS % 1 % (0-4); LYMPHOCYTES # 1.4 #; MONOCYTES % 5 % (3-11); RBC MORPH NORMAL (NORMAL); SEGMENTED NEUTROPHILS % 87 % (51-67); TOTAL CELLS COUNTED 100
--- NOTE | 2016-12-22 10:49 | NUR ---
Patient is upset and yelling, wanting to leave. Complaining of being cold. Warm blankets x2 applied. Socks applied. Dr. Camarillo has patient drink to see if nausea/vomiting haver resolved.
--- NOTE | 2016-12-22 10:50 | NUR ---
Blood glucose is 38 by accucheck. Reported to Dr. Camarillo. Patient given 50 ml amp of Dextrose 50% in IV RAC. Patient able to drink Ensure Extra Calorie without nausea.
[2016-12-22] MEDS ORDERED: DEXTROSE 50% 25 GM/50 ML SYRINGE IV ONE ×2 (11:25)
--- NOTE | 2016-12-22 11:26 | NUR ---
Blood sugar is now 82 by accucheck. Reported to Dr. Camarillo. Patient has consumed 240 ml Ensure Plus.
--- NOTE | 2016-12-22 11:42 | NUR ---
Lunch tray ordered.
--- NOTE | 2016-12-22 13:37 | NUR ---
Patient admitted to room 315 per cart from ER. Able to walk to the bed but gait is very awkward and unsteady. Noted multiple scratches on both lower legs and an abrasion on both knees and elbows.
--- NOTE | 2016-12-22 13:55 | NUR ---
Rechecked blood glucose- 35. Gave one amp of D50. Patient is completely alert and talking non-stop. He had no symptoms of low blood sugar.
--- NOTE | 2016-12-22 14:15 | NUR ---
Blood glucose= 98.
[2016-12-22 14:30] VITALS: BP 134/109
--- NOTE | 2016-12-22 14:50 | NUR ---
Blood glucose= 76. Attempted to educate patient on the importance of eating or drinking liquids at this time but he refuses to eat and there is no IVF infusing. The patient will not eat or drink because he thinks the broth he just took was urinated out immediately. I held the urinal up to him and he took a sip of broth as he was urinating. He immediately shouted "there is chicken soup coming out of my penis." When I attempted to explain to him that this was not physically possible he said "you don't know but I do" "I can smell the soup and I can see it."
[2016-12-22] MEDS: D5 1/2 NS IV 1,000 ML IV SCH ×2 (15:17→23:57)
--- NOTE | 2016-12-22 15:30 | NUR ---
The patient is explaining to this nurse that when he vomited this morning at the senior living an alien came out of him. When I questioned him about this it was evident that he believed this was true. He also went on to tell me that the anti-main would come from the [place]. He seems well versed on famous people and on historical events but his interpretation of events is often not grounded in reality.
[2016-12-22 16:00] VITALS: BP 109/58
[2016-12-22] MEDS ORDERED: DEXTROSE 50% 25 GM/50 ML SYRINGE IV PRN (16:10)
--- NOTE | 2016-12-22 16:34 | History and Physical (E) ---
History & Physical Benny Freeman MDPCP: CC Patient entered our ED c/o frequent emesis and a low blood sugar. HPI Patient has had this same problem before he thinks,but he is not sure when. PMH Copd ;asthma;htn seizure disorder ; hld; depression anxiety ;hypothyroidism ;diabetes mellitus ll ;arthritis cataracts ;right toe ulcer ;obstructive sleep apnea Parkinson's Disease PSH Right cataract surgery Colonoscopy Coronary Artery Stent x 2 Cholecystectomy ALLERGIEs :Sodium Pentothal; aspartame;ether;Thiopental HOME MEDICATIONS: Please see list at end of report. FH Mother of heart and lung disease Father had a [place] SH In 2013 this patient moved from [place] to [facility] to be closer to family.Former smoker who stopped smoking over 40 years ago.Denies alcohol and street drug use.Pt. is notmmarried and has no children.Patient is disabled due to Parkinsonism. ROS CONSTITUTION: Denies weight loss or gain. Denies fever or chills. HEENT: No change in vision or hearing. No sores in mouth, sore throat. CV: No chest pain, palpitations. PULM: No cough, shortness of breath, difficulty breathing. GI: No upset stomach,but has had nausea, and vomiting today. No blood in stool. : No dysuria. No blood in urine. MS: No new muscle or joint aches and pains. NEURO: No numbness or tingling. No weakness. INTEG: No rashes, lesions, or sores. ENDO: No heat or cold intolerance. No polydipsia or polyuria. HEME/LYMPH: No easy bruising or bleeding. No swollen glands. PSYCH: No change in mood or behavior. OBJECTIVE GEN: Awake, alert, oriented, NAD HEENT: EOMI, PERRL, moist oral mucosa. CV: RRR S1 S2 normal with no murmur LUNGS: CTA B ABD: Soft, NT/ND with normal bowel sounds. EXTR: No C/C/E. Normal peripheral pulses. INTEG: No rash. NEURO: No focal motor neuro deficit. Weight: 94.3 kg LABS HGB-9.9 WBC-20.28 GLUCOSE IN THE ed--28 [AND THIS WAS AFTER PT.RECEIVED D-50 IV] BNP-429 MICRO N/A IMAGING PA chest, supine and upright abdominal images were obtained. Bowel gas pattern is normal. There is no intraperitoneal free air. Lungs are clear. There are no pathologic masses or calcifications. Impression no acute pathology ASSESSMENT Persistent hypogylcemia; persistent nausea and emesis PLAN Hydrate with IV of D5 NS with a rate of 100 mls per hour. Clear liquid diet for now. IV ZOFRAN FOR NAUSEA AND EMESIS. . Allergies/Home Medications Allergies: Coded Allergies: aspartame (Verified Adverse Reaction, Unknown, SEIZURE, 12/18/16) ether (Verified Adverse Reaction, Unknown, SEIZURES, 12/18/16) thiopental (Verified Adverse Reaction, Unknown, SEIZURES, 12/18/16) Uncoded Allergies: SODIUM PENTATHOL (Adverse Reaction, Unknown, SEIZURES, 02/25/14) Reported Home Medications Scheduled Amoxicillin/Clavulanate Potassium (Augmentin 875mg/125mg) 1 EACH PO BID ( Reported) Atorvastatin (Lipitor) 80 MG PO HS (Reported) Carbidopa/Levodopa (Carbidopa-Levodopa 25mg-250mg) 1 TAB PO BID (Reported) Carvedilol (Coreg) 6.25 MG PO BID WITH MEALS (Reported) Clonazepam (Clonazepam) 3 MG PO TID (Reported) Clopidogrel Bisulfate (Plavix) 75 MG PO DAILY (Reported) Glimepiride (Glimepiride) 4 MG PO BID (Reported) Levetiracetam (Keppra) 1,000 MG PO TID (Reported) Levothyroxine Sodium (Levothyroxine Sodium) 125 MCG PO DAILY@0700 (Reported) Losartan/Hydrochlorothiazide (Losartan-HCTZ 100-25 mg Tab) 1 EACH PO DAILY ( Reported) Pantoprazole Sod (Protonix Tab) 40 MG PO DAILY (Reported) Phenytoin Sodium Extended (Dilantin) 300 MG PO DAILY@0900 (Reported) Phenytoin Sodium Extended (Dilantin) 400 MG PO DAILY@2100 (Reported) Sertraline HCl (Sertraline HCl) 100 MG PO DAILY (Reported) Scheduled PRN Acetaminophen (Acetaminophen) 650 MG PO NEEDED PRN PRN PAIN (Reported) Discontinued Medications Docusate Sodium (Docusate Sodium) 100 MG PO BID PRN PRN CONSTIPATION Discontinued Reason: Update list Mu-Vits-Min Th/Lycopene/Lutein (Centrum Silver Tablet) 1 EACH PO DAILY (Reported ) Discontinued Reason: Update list Psyllium Husk (Metamucil) 660 GM PO TID (Reported) Discontinued Reason: Update list Copies to: End of Report . ANNABEL KEARNEY DO Dec 22, 2016 16:34
[2016-12-22] MEDS ORDERED: ACETAMINOPHEN 325 MG TAB (TYLENOL) PO PRN (16:45)
--- NOTE | 2016-12-22 18:00 | NUR ---
Continued to monitor blood glucose every 2 hours for the afternoon. Readings were stable after IVF was initiated.
[2016-12-22] MEDS: clonazePAM 0.5 MG (KlonoPIN) TAB PO SCH (18:03)
[2016-12-22] MEDS: CARVEDILOL 6.25 MG (COREG) TAB PO SCH (18:03)
[2016-12-22] MEDS: LEVETIRACETAM 500 MG (KEPPRA) TABLET PO SCH (18:03)
[2016-12-22 18:52] LABS: BILIRUBIN,URINE Negative (Negative); CLARITY,URINE Clear; COLOR,URINE Yellow; GLUCOSE, URINE (UA) Negative (Negative); LEUKOCYTE ESTERASE ,URINE Negative (Negative); PH,URINE 6.5 (5.0 - 8.0); UROBILINOGEN,URINE 0.2 mg/dL (0.2-1.0)
--- NOTE | 2016-12-22 19:00 | NUR ---
Patient continues to fixate on certain things and be suspicious of care provided by staff. Attempted to offer education frequently on the basis for cares provided but the patient feels he knows what is best for him.
--- NOTE | 2016-12-22 19:25 | NUR ---
Accucheck is 62; pt. is alert and watching tv; popsicle provided. Call light and ice/H2O within reach.
[2016-12-22 20:00] VITALS: BP 104/57
[2016-12-22] MEDS: CARBIDOPA PO SCH (20:48)
[2016-12-22] MEDS: PHENYTOIN ER 100 MG (DILANTIN) CAPSULE PO SCH (20:48)
[2016-12-22] MEDS: ATORVASTATIN 40 MG (LIPITOR) TABLET PO SCH (20:48)
[2016-12-22] MEDS: LEVODOPA PO SCH (20:48)
--- NOTE | 2016-12-22 21:15 | NUR ---
Pt. incontinent of urine; ambulated with assist x 2 and use of gait belt/walker to bathroom. Pt. unsteady/shakey. Gown and complete bed change. Pt. denies discomfort. Safety precautions observed. Call light and H2O within reach; additional ice provided. Visitor here to see pt. Pt. very conversational.
--- NOTE | 2016-12-22 21:30 | NUR ---
Accucheck is 75.
--- NOTE | 2016-12-22 23:30 | NUR ---
Accucheck is 82.
[2016-12-22 23:52] VITALS: BP 97/37
--- NOTE | 2016-12-23 00:40 | NUR ---
E COMMERCE SOLUTION ARCHITECT reports pt.'s bilateral legs weeping scant blood from petachiae spots during ambulation to and fro bathroom just now. Chux placed under lower legs & slightly elevated in bed; left open to air. No weeping noted at rest. Pt. denies discomfort. Pt. eating another popsicle; call light within reach.
--- NOTE | 2016-12-23 01:25 | NUR ---
Accucheck is 91.
[2016-12-23 01:50] VITALS: BP 102/59
--- NOTE | 2016-12-23 02:00 | NUR ---
Pt. awake; requests drinks and ice; very conversational. Bed alarm on for safety.
[2016-12-23 04:00] VITALS: BP 112/50
[2016-12-23 06:05] LABS: BASOPHILS % (AUTO) 0 % (0-2); EOSINOPHILS # (AUTO) 0.3 10^3uL; EOSINOPHILS % (AUTO) 3 % (0-4); LYMPHOCYTES # (AUTO) 2.3 X10^3; MEAN PLATELET VOLUME 9.9 FL (6.0-9.5); MONOCYTES % (AUTO) 11 % (3-11); NEUTROPHILS # (AUTO) 5.5 X10^3; NEUTROPHILS % (AUTO) 60 % (51-67); PLATELET COUNT 282 10^3uL (150-450); WHITE BLOOD COUNT 9.18 10^3uL (4.0-11.0)
--- NOTE | 2016-12-23 06:14 | NUR ---
Accucheck this morning is 101. Pt. slept very little last shift; called often for various requests; denied discomfort. IVF infusing without difficulty; pt. able to ambulate to and fro bathroom with use of walker and staff assist-although unsteady; fall precautions observed at all times. Call light and H2O within reach.
[2016-12-23] MEDS: PANTOPRAZOLE 40 MG (PROTONIX) TAB PO SCH (06:21)
[2016-12-23] MEDS: LEVOTHYROXINE 125 MCG (LEVOTHROID) TABLET PO SCH (06:21)
[2016-12-23 06:22] LABS: ANION GAP 8.7 MEQ/L (3-15)
[2016-12-23 06:33] LABS: MEAN CORPUSCULAR HGB CONC 31.6 g/dL (31.0-37.0); MEAN CORPUSCULAR VOLUME 98 FL (80-100)
[2016-12-23 08:00] VITALS: BP 103/58
[2016-12-23] MEDS: D5 1/2 NS IV 1,000 ML IV SCH (08:08)
[2016-12-23] MEDS ORDERED: ONDA4TAB8 PO (08:59)
--- NOTE | 2016-12-23 09:00 | NUR ---
MED REC COMPLETE--current med list obtained from list provided by [facility].
[2016-12-23] MEDS: CLOPIDOGREL 75 MG (PLAVIX) TAB PO SCH (09:07)
[2016-12-23] MEDS: PHENYTOIN ER 100 MG (DILANTIN) CAPSULE PO SCH ×2 (09:07→20:23)
[2016-12-23] MEDS: clonazePAM 0.5 MG (KlonoPIN) TAB PO SCH ×3 (09:07→17:36)
[2016-12-23] MEDS: LEVETIRACETAM 500 MG (KEPPRA) TABLET PO SCH ×3 (09:07→17:36)
[2016-12-23] MEDS: CARBIDOPA PO SCH ×2 (09:07→20:23)
[2016-12-23] MEDS: LEVODOPA PO SCH ×2 (09:07→20:23)
[2016-12-23] MEDS: CARVEDILOL 6.25 MG (COREG) TAB PO SCH ×2 (09:07→17:35)
[2016-12-23] MEDS: SERTRALINE 100 MG (ZOLOFT) TABLET PO SCH (09:07)
--- NOTE | 2016-12-23 09:30 | NUR ---
Up to the chair with assist of one. He is weak in his upper leg muscles but has ample strength to ambulate once on his feet. His gait is awkward but the most unsafe thing about his movements is that he throws himself backward onto the bed, toilet, or scale without looking where he will land. He hit the back of the chair so hard it moved straight back. He does not listen to instruction on safety. Fall precautions in place.
--- NOTE | 2016-12-23 09:37 | Progress Note (E) ---
Progress Note December This 66 year old gentleman is doing better today. His only complaint is that he wants some rose to eat.He denies chest pain and abdominal pain. He denies sob or pain in his extremities. heart-RRR lungs- cta, all mabry blood glucose was up to 101 this am. abdomen-bs are active,abdomen is non tender extremities show no c/c/ or edema Assessment: hypoglycemia,much better controlled; emesis,resolved Plan: continue the current IV which contains glucose and restart him on a regular diet which he insists he eats at the senior living. Probable discharge back to the senior living tomorrow.. ANNABEL KEARNEY DO Dec 23, 2016 09:37
[2016-12-23 11:38] VITALS: BP 94/44
--- NOTE | 2016-12-23 12:30 | NUR ---
The patient is exhibiting signs of psychosis again today. He tells this nurse "I have to get out of the group home I live in because they are trying to poison me and they want me to have seizures." When I questioned him about this he stated "they are using aspartame in my food to give me seizures and other poisons like lead." "The Enzo went mad and practiced sexual deviations because they were poisoned with lead." When I attempted to discuss these concerns with him, he could not listen due to his own constant talking and frequent flight of thought."
--- NOTE | 2016-12-23 13:44 | NUR ---
Patient tells this nurse "If my parents would have given me butter and salt and pepper on all my food the first 6 years of my life I wouldn't be epileptic at this time." "If you would give me rose right now I would not be having any problems with seizures like I had a little while ago." "You guys and the doctors aren't interested in a cure. Doctors don't care about people who don't have money." Attempted to educate the patient on the care he has been receiving during this hospital stay but he is not receptive. No seizures noted this morning. The patient slept for about 1 hour during which time he is convinced he blacked out.
--- NOTE | 2016-12-23 14:00 | NUR ---
The patient demanded I call his cousin who is his DPOA. When her voice message came on he told me he wanted to tell her that he had to get out of the assisted. When she didn't answer, he immediately got angry and said "she wants me too so she's left town."
--- NOTE | 2016-12-23 14:15 | NUR ---
Spoke to the patient's cousin (DPADOLPH) by phone. She will come up to see the patient as soon as possible.
--- NOTE | 2016-12-23 15:45 | NUR ---
When the patient's cousin visited she brought him some rose- this seemed to quiet him from the yelling he was doing when she first entered the room.
[2016-12-23 16:00] VITALS: BP 116/53
--- NOTE | 2016-12-23 17:00 | NUR ---
When the patient's cousin left, he ate the entire package of rose. He said "I think this is the only thing I can swallow." Immediately after he took a drink of water without difficulty.
--- NOTE | 2016-12-23 17:57 | NUR ---
Offered the patient a shower today with the shower chair and assistance but he declined stating "I get a better bath with these hand wipes I've been using." At one point this afternoon, the patient had wipes wrapped around each leg and his right arm.
--- NOTE | 2016-12-23 19:24 | NUR ---
Patient did eat all of his lasagna but only after he requested it be placed in two coffee cups. The patient's cousin (DPOA) reports he has always had this paranoid mentation but she thinks it's getting worse.
[2016-12-23 19:36] VITALS: BP 112/53
[2016-12-23] MEDS: ATORVASTATIN 40 MG (LIPITOR) TABLET PO SCH (20:23)
--- NOTE | 2016-12-23 22:00 | NUR ---
Patient very restless at times. Verbalizes things that do not make sense. Talks about aliens in his bm. Ambulates with assist of one to two as he is unsteady at times. Is obsessed with using wipes. Wants to wipe his body parts excessively, especially after he goes to the restroom. Does not want staff to assist him. Does not want to use clean wipes for his hands. Continues to have numerous small reddened areas, some open on his arms and his lower legs. Dany hose on. Call light within reach.
[2016-12-24] VITALS (15 sets, daily range): BP systolic 100–124; BP diastolic 53–71
--- NOTE | 2016-12-24 | NUR ---
Accu Check 103. Assisted to bathroom to void. Returned to bed. Rests at short intervals. Uses call light to make needs known.
[2016-12-24 06:03] LABS: BASOPHILS % (AUTO) 1 % (0-2); EOSINOPHILS # (AUTO) 0.4 10^3uL; EOSINOPHILS % (AUTO) 5 % (0-4); LYMPHOCYTES # (AUTO) 1.9 X10^3; MEAN CORPUSCULAR HEMOGLOBIN 31.2 PG (26.0-34.0); MEAN PLATELET VOLUME 9.8 FL (6.0-9.5); MONOCYTES # (AUTO) 0.8 X10^3; MONOCYTES % (AUTO) 11 % (3-11); NEUTROPHILS # (AUTO) 4.1 X10^3; NEUTROPHILS % (AUTO) 57 % (51-67); PLATELET COUNT 243 10^3uL (150-450); WHITE BLOOD COUNT 7.17 10^3uL (4.0-11.0)
[2016-12-24] MEDS: LEVOTHYROXINE 125 MCG (LEVOTHROID) TABLET PO SCH (06:11)
[2016-12-24] MEDS: PANTOPRAZOLE 40 MG (PROTONIX) TAB PO SCH (06:11)
[2016-12-24 06:20] LABS: MEAN CORPUSCULAR HGB CONC 31.7 g/dL (31.0-37.0); MEAN CORPUSCULAR VOLUME 98 FL (80-100)
[2016-12-24 06:36] LABS: ANION GAP 6.4 MEQ/L (3-15)
[2016-12-24] MEDS: CLOPIDOGREL 75 MG (PLAVIX) TAB PO SCH (08:41)
[2016-12-24] MEDS: CARBIDOPA PO SCH ×2 (08:41→21:05)
[2016-12-24] MEDS: LEVETIRACETAM 500 MG (KEPPRA) TABLET PO SCH ×3 (08:41→17:07)
[2016-12-24] MEDS: LEVODOPA PO SCH ×2 (08:41→21:05)
[2016-12-24] MEDS: SERTRALINE 100 MG (ZOLOFT) TABLET PO SCH (08:41)
[2016-12-24] MEDS: CARVEDILOL 6.25 MG (COREG) TAB PO SCH ×2 (08:41→17:08)
[2016-12-24] MEDS: PHENYTOIN ER 100 MG (DILANTIN) CAPSULE PO SCH ×2 (08:41→21:06)
[2016-12-24] MEDS: clonazePAM 0.5 MG (KlonoPIN) TAB PO SCH ×3 (08:41→17:08)
--- NOTE | 2016-12-24 08:45 | NUR ---
Pt asks to have his blood sugar checked at this time, stating "it feels low". BS 110 at this time. Pt sitting up on edge of bed at this time. States "I can't eat all of this!". Informed pt that he doesn't have to eat it all, just to eat what he can. Skin warm, dry, intact. Resprs nonlabored, even on RA. Pt denies needs at this time.
--- NOTE | 2016-12-24 09:14 | NUR ---
NUTRITION ASSESSMENT Level 1 Patient: Chris Velázquez Age/Sex: 66/M Date Screened: 12-24-16 Weight: 207.4#/94.3 kg Height: 73 inches Primary Diagnosis: hypoglycemia Diet Order: regular Relevant labs: glucose 106 (27 on admission) Food allergies: ASPARTAME Nutrition Assessment Criteria Age over 80: N Body Mass Index (BMI) under 19: N Admission Screening Indicates Risk? 6 points Moderate/High Risk Diagnosis: 3 points TPN or PPN: N NPO or clear liquid diet: N Serum Glucose <70 or >180: 3 points Hgb A1c >6.7: N/A Total: 12 points Risk Screen: __ Patient at low nutritional risk based on available data; reevaluate in 5-7 days __ Patient at moderate nutritional risk based on available data; reevaluate in 3-5 days _X_ Patient at high nutritional risk; complete Nutrition Assessment within 48 hours of admission.
--- NOTE | 2016-12-24 09:28 | NUR ---
BUNDLE TIER reports that pt had an episode of emesis after breakfast. Pt states "I need to go to surgery to see if there are polyps and to have my esophagus widened. If the doctor could do that now, that would be great". Will inform [place] of this behavior.
--- NOTE | 2016-12-24 14:16 | NUR ---
MULTIDISCIPLINARY MTG/DR. WEEKS: Pt. admitted for hypoglycemia, N/V. Plan to hydrate and provide potassium replacement. Pt. is a resident and [facility]. Plan was for Pt. to be admitted to hospice through [facility] today at their facility. On admit Pt. WBC was high but there was no definitive source of infection. Glucose was 27 on admit but it has stabilized. Abdominal series was negative. Plan for Pt. to return to [facility] today or tomorrow and be admitted into hospice. No discharge needs identified at this time.
--- NOTE | 2016-12-24 14:29 | NUR ---
NUTRITION ASSESSMENT Level II Patient: Chris Velázquez Age/Sex: 66/M Date Assessed: 12-24-16 ASSESSMENT Pertinent History: Patient admitted with hypoglycemia and screened at high nutritional risk secondary to hx. dysphagia, poor dentition, multiple recent falls and multiple episodes hypoglycemia. PMHx includes COPD, asthma, HTN, seizure disorder, depression, anxiety, hypothyroidism, diabetes, arthritis, right toe ulcer, sleep apnea, Parkinson's disease and mild intellectual disability. He has missing teeth/cavities and overall poor dentition. According to speech therapy report in 2016, pt. had been having episodes of dysphagia and difficulty swallowing; at that time he was only consuming Boost, vegetable juice and tea. It was recommended he have a MBS study but pt. refused, and he was DC'd from speech therapy on a regular diet. Pt. has had multiple episodes of hypoglycemia since admission. He has been requesting rose, and so far has not demonstrated any problems swallowing. Noted pt. has been exhibiting signs of paranoia with this admission. He is ALLERGIC to ASPARTAME. Weight history includes: 198# on 12-08-16 and 195.1# on 12-18-16. Meds/Nutrition: Protonix, Synthroid Weight: 207.4#/94.3 kg Height: 73 inches Body Mass Index (BMI): 27.4 [place] Body Weight : 184#/83.6 kg % IBW: 112% GASTROINTESTINAL Appetite: fair, eating 10-100% Diet Order: regular Unintentional loss of >10 lbs. in 3 months: N Difficult to chew/swallow: N Diabetes: Yes Relevant Labs: glucose 106 (27 on admission) Calculations for Nutritional Assessment Estimated calorie needs: 22-25 kcals/kg = 2,000-2,350 kcals Estimated protein needs: 1.0-1.2 g/kg = 94-112 g./day DIAGNOSIS 1. Nutrition Diagnosis: Potential for inadequate intake related to psychotic behaviors and poor dentition as evidenced by multiple hypoglycemic episodes, missing teeth/cavities and history of dysphagia requiting an all-liquid diet. NUTRITIONAL INTERVENTION Goal: Patient will receive adequate nutrition to meet his needs. Plan: Will provide regular diet as ordered; no need for diabetic restrictions right now, especially in light of multiple hypoglycemic episodes. Recommend nutrient-dense foods balanced in CHOs and protein. Despite regular diet, sugar-sweetened beverages should be discouraged as this could throw his sugars out of whack; he is allergic to aspartame but other sources of non-nutritive sweeteners can be provided instead. MONITORING & EVALUATION _X_ Monitor patients menu selections _X_ Monitor patients food intake per nursing notes __ Monitor NPO/clear liquid days _X_ Monitor lab values __ Monitor I&O __ Other
[2016-12-24] MEDS ORDERED: DEXTROSE ORAL GEL (GLUTOSE 40%) 15 GM TUBE PO PRN (14:35)
[2016-12-24] MEDS ORDERED: GLUCAGON EMERGENCY 1 MG/KIT IM PRN (14:35)
[2016-12-24] MEDS ORDERED: DEXTROSE 50% 25 GM/50 ML SYRINGE IV PRN (14:35)
[2016-12-24] MEDS ORDERED: PANTOPRAZOLE IV 80 MG in SODIUM CHLORIDE FLUSH 20 ML IV ONE ×2 (15:20→16:45)
[2016-12-24] MEDS ORDERED: SODIUM CHLORIDE 250 ML IV SCH (15:30)
--- NOTE | 2016-12-24 15:58 | Progress Note (E) ---
Progress Note SUBJECTIVE Admitted from ED 12/22, brought in from skilled nursing for recurrent hypoglycemia. Had nausea/vomiting also. This was his 4th ED visit in December. Glucose was 27 in ED. WBC was elevated at 20.28 but quickly improved. Had anemia with Hgb 9.8 which has since worsened, now 7.2 12/24. Chemistry now stable including glucose, 106. Of note, patient was due to be admitted to hospice today but instead got admitted to hospital this weekend. On exam, awake, interactive, pleasant, oriented. However, he perseverates about mystical topics. Redirected conversation to his current complaints and symptoms. He is focused on his recent vomiting stating he had dark, "manure" emesis with metallic taste. Denied bright red blood. Had similar looking stools , he said. Suspect GI bleed, though this was not noted on admit. No recent coag profile. He has bruises and petechiae on arms and legs, bruises on hands. Uncertain cause. Checking new coag profile. Noted platelets are 243. Asked about hospice. He did not realize he was being enrolled in that service and didn't fully understand it's implications. Does say he would take "assisted suicide" over continued living at his current skilled nursing because he feels the food is not adequately nutritious and he feels some staff there are not nice. But offered further workup and treatment for his current conditions, he does voice appreciation and would even welcome endoscopy to figure out if he has a GI bleed. OBJECTIVE Vital Signs Date Time Temp Pulse Resp B/P Pulse Ox O2 Delivery O2 Flow Rate FiO2 12/24/16 12:02 97.7 64 20 101/53 96 Room air I & O 12/23/16 12/24/16 Cumulative From/Thru 19:00 07:00 12/22/16 08:12 - 12/24/16 06:04 Intake Total 1694 ml 724 ml 5965 ml Output Total 400 ml 1200 ml 3100 ml Balance 1294 ml -476 ml 2865 ml GEN: Awake, interactive, oriented. HEENT: EOMI, clear sclerae, somewhat dry oral mucosa, poor dentition. CV: Regular without significant murmur. PULM: CTA B with mildly diminished bases. No R/R/W. ABD: Soft, non-tender, no guarding or rebound. EXTR: No edema. INTEG: Petechiae in upper and lower extremities bilaterally. Bruises on arms, hands. Healing abrasion/contusion to left knee. Excoriations on upper arms bilaterally. NEURO: No apparent focal motor neuro deficit though he has parkinsonian tremor. Gait not assessed. Lab-Past 14 Days, 35 Results 12/22/16 08:30: Absolute Band Neutrophils 0.0, Alanine Aminotransferase (ALT/SGPT) 46, Albumin 2.8L, Albumin/Globulin Ratio 0.736L, Alkaline Phosphatase 182H, Anion Gap 15.6H , Aspartate Amino Transf (AST/SGOT) 51H, BUN/Creatinine Ratio 18, Band Neutrophils % 0, Basophils # (Auto) , Basophils # (Manual) 0.0, Basophils % ( Manual) 0, Basophils (%) (Auto) , Blood Morphology Comment Normal, Blood Urea Nitrogen 13, Calcium Level 8.2L, Calcium/Ionized Calcium Ratio 3.7L, Calculated Osmolality 273L, Carbon Dioxide Level 23, Chloride Level 108, Creatinine 0.71L, Differential Total Cells Counted 100, Eosinophils # 0.2, Eosinophils # (Auto) , Eosinophils % (Manual) 1, Eosinophils (%) (Auto) , Estimat Glomerular Filtration Rate 133.5, Estimated GFR (Non- 110.3, Glucose Level 27#*L, Hematocrit 31.10L, Hemoglobin 9.8L, Lymphocytes # 1.4, Lymphocytes # ( Auto) , Lymphocytes % (Manual) 7L, Lymphocytes (%) (Auto) , Mean Corpuscular Hemoglobin 31.0, Mean Corpuscular Hemoglobin Concent 31.5, Mean Corpuscular Volume 98, Mean Platelet Volume 9.8H, Monocytes # 1.0, Monocytes # (Auto) , Monocytes % (Manual) 5, Monocytes (%) (Auto) , SF-Gyu-G-Type Natriuretic Peptide 429H, Neutrophils # 17.6, Neutrophils # (Auto) , Neutrophils (%) (Auto) , Platelet Count 482H, Potassium Level 4.0, Red Blood Count 3.16L, Red Cell Distribution Width 15.0, Segmented Neutrophils % 87H, Sodium Level 143, Total Bilirubin 0.3, Total Protein 6.6, White Blood Count 20.28H 12/22/16 08:50: Free Thyroxine (T4) Calculated 0.83, Phenytoin (Dilantin) Level 8.5L, Thyroid Stimulating Hormone (TSH) 4.84#H 12/22/16 17:55: Urine Bilirubin Negative, Urine Blood Negative, Urine Clarity Clear, Urine Collection Type Clean catch, Urine Color Yellow, Urine Glucose (UA) Negative, Urine Ketones Negative, Urine Leukocyte Esterase Negative, Urine Nitrite Negative, Urine Protein Negative, Urine Specific [place] 1.010, Urine Urobilinogen 0.2, Urine pH 6.5 12/23/16 05:02: Anion Gap 8.7, BUN/Creatinine Ratio 23H, Basophils # (Auto) 0.0, Basophils (%) ( Auto) 0, Blood Urea Nitrogen 15, Calcium Level 7.6L, Carbon Dioxide Level 27, Chloride Level 108, Creatinine 0.66L, Eosinophils # (Auto) 0.3, Eosinophils (%) (Auto) 3, Estimat Glomerular Filtration Rate 145.2, Estimated GFR (Non- 120.0, Glucose Level 89#, Hematocrit 24.70L, Hemoglobin 7.8L, Lymphocytes # (Auto) 2.3, Lymphocytes (%) (Auto) 25, Mean Corpuscular Hemoglobin 31.0, Mean Corpuscular Hemoglobin Concent 31.6, Mean Corpuscular Volume 98, Mean Platelet Volume 9.9H, Monocytes # (Auto) 1.0, Monocytes (%) ( Auto) 11, Neutrophils # (Auto) 5.5, Neutrophils (%) (Auto) 60, Platelet Count 282, Potassium Level 4.1, Red Blood Count 2.52L, Red Cell Distribution Width 14.9, Sodium Level 140, White Blood Count 9.18, Smear Scan Yes 12/24/16 05:35: Anion Gap 6.4, BUN/Creatinine Ratio 23H, Basophils # (Auto) 0.0, Basophils (%) ( Auto) 1, Blood Urea Nitrogen 14, Calcium Level 7.5L, Carbon Dioxide Level 29, Chloride Level 111H, Creatinine 0.61L, Eosinophils # (Auto) 0.4, Eosinophils (% ) (Auto) 5H, Estimat Glomerular Filtration Rate 159.1, Estimated GFR (Non- 131.5, Glucose Level 106, Hematocrit 22.70L, Hemoglobin 7.2L, Lymphocytes # (Auto) 1.9, Lymphocytes (%) (Auto) 27, Mean Corpuscular Hemoglobin 31.2, Mean Corpuscular Hemoglobin Concent 31.7, Mean Corpuscular Volume 98, Mean Platelet Volume 9.8H, Monocytes # (Auto) 0.8, Monocytes (%) ( Auto) 11, Neutrophils # (Auto) 4.1, Neutrophils (%) (Auto) 57, Platelet Count 243, Potassium Level 3.8, Red Blood Count 2.31L, Red Cell Distribution Width 14.9, Sodium Level 142, White Blood Count 7.17 12/22/16 ACUTE ABD SERIES Indication: Vomiting PA chest, supine and upright abdominal images were obtained. Bowel gas pattern is normal. There is no intraperitoneal free air. Lungs are clear. There are no pathologic masses or calcifications. Impression: Negative abdomen series. REFERENCE 12/08/16 CT ABDOMEN/PELVIS W PROCEDURE: CT abdomen and pelvis with contrast. TECHNIQUE: Multiple contiguous axial images were obtained through the abdomen and pelvis after administration of intravenous contrast. INDICATION: Ileus, nausea, and vomiting. There is abnormal thickening of the quinonez of the greater and lesser curvature of the stomach at the proximal body, fundus, and cardia. The segments of abnormal thickened gastric wall showed mural air and emphysematous gastritis. The draining venous system about the lesser and greater curvature shows intraluminal venous gas which extends into the liver and into the peripheral anti-dependent portal venous branches. The celiac artery , its primary branches, the superior mesenteric, and the inferior mesenteric arteries were all widely patent. The distal gastric body and its antrum thin walled, non thickened, without mural air. The duodenum, the small and the large bowel quinonez all non thickened. There were no other areas of enteric mural gas. There was no pneumatosis intestinalis. There is some gas in the gastric quinonez dissecting through the cardia and into the distal thoracic esophagus. The distal thoracic esophagus irregular, nodular, and thickened with its single wall thickness of 1.6 cm and that structure measuring short-axis outer wall/ outer wall diameter of 3.0 cm. I am told that the patient has been vomiting and retching. It is conceivable that the esophageal thickening is from a tear and some intramural hematoma and that the retching itself accounts for gastric emphysema. Other etiologies such as emphysematous gastritis, however, could not be excluded. Again this would be a very unusual location for arterial insufficiency accounting for ischemia, and we note no arterial obstruction. There is no free intraperitoneal air or findings of a transmural perforation. Aside from the portal venous air, the liver appeared otherwise unremarkable. The spleen is negative. There is a benign fatty nodule in the left adrenal gland , 1.8 cm. The pancreas appeared normal. There are bilateral renal parapelvic cysts greater left without hydronephrosis. The kidneys nonacute. There is no ascites, abscess, hematoma, or loculated fluid collection. IMPRESSION: Thickening of the quinonez of the proximal stomach along its greater and lesser curvatures through the cardia and into the distal esophagus. The areas of abnormal gastric wall thickening are accompanied by pneumatosis and gastric emphysema. There is heterogeneous thickening and irregular appearance of the distal thoracic esophagus. A unifying consideration in the history provided would raise the question of esophageal mucosal tear and intramural hemorrhage owing to the vomiting and the vomiting-inducing gastric emphysema with the venous drainage of this air accounting for the intrahepatic portal venous air. Infectious etiology such as emphysematous gastritis, however, could not be excluded; and given the abnormal appearance of the distal thoracic esophagus, its neoplastic infiltration cannot be excluded. Endoscopic correlation recommended. No free air or findings of a transmural perforation. The distal stomach, the duodenum, the small and the large bowel were unremarkable aside from a suggestion of mild regional small bowel ileus in the upper abdomen. Benign incidental renal parapelvic cyst. No biliary dilatation. No ascites. No arterial obstruction demonstrated. INDICATION: Abdominal pain Upper GI study and small bowel performed with Omnipaque contrast. Comparison made to CT of earlier today. The esophagus shows moderate dilatation in its proximal to midportion with diffuse irregularity and narrowing of the distal third of the esophagus. There is no extravasation of contrast. There is marked diffuse irregularity of the gastric wall compatible with the gastric wall thickening and pneumatosis visualized on the CT study. The duodenal bulb and sweep are unremarkable. Small bowel showed normal caliber throughout with normal small bowel fold pattern. Contrast reaches the right colon after about one hour and 20 minutes. There is no small bowel obstruction. IMPRESSION: There is diffuse thickening and irregularity of the lower esophagus and of the stomach, corresponding to the CT findings earlier today. There is no extravasation of contrast or focal ulcer. The differential diagnosis for pneumatosis in the stomach and distal esophagus would include infectious causes, ischemic causes, or caustic ingestion. There is slow motility of the esophagus due to the lower esophageal narrowing. Further evaluation with endoscopy is recommended as clinically warranted. The small bowel appeared unremarkable. ASSESSMENT Chris Velázquez is a 66 year old male admitted from ED 04/22 where he presented from skilled nursing with altered mental status and nausea/vomiting. He was found to have profound hypoglycemia on admit that improved with glucose supplement. However, he was also found to have worsening anemia and emesis worrisome for upper GI bleed. He has numerous chronic problems and recently had gastric pneumatosis and biliary pneumatosis that necessitated transfer to [facility]. However , no surgery or endoscopic interventions were reportedly done there. PLAN * Hypoglycemia: Glucose 27 on admit, improved with IVF. Held glimepiride. * Nausea/Vomiting: Uncertain cause. Improved since admit. Ondansetron, promethazine. * Possible GI Bleed: Has history of GI bleed and was most recently evaluated in ED 12/08/2016 by surgery for gastric pneumatosis with protal venous air in addition to concern for GI bleed. He had been transferred to [facility] for more advanced care. Ultimately did not have any intervention but he recovered somewhat and was discharged to [facility] for skilled care. Prior to this admit, likely had hematochezia again. This was not initially addressed on this admit. Check stool for occult blood. Check coag profile. Clear liquid diet for now. Pantoprazole bolus and drip. Consult surgery for consideration of upper endoscopy. Obtain records from that prior transfer. * Acute Blood Loss Anemia: Hgb julio 7.2 12/24. Transfused 12/24 for Hgb < 8. * F/E/N: CLD for now. Peripheral IV. * Prophylaxis: SCDs * Code Status: Full code. Discussed with patient 12/24. * Dispo: Inpatient. Expect 3-4 day stay. CHRONIC ISSUES * Parkinson's disease: Carbidopa/levodopa * HLD: Atorvastatin * Seizure Disorder: Levetiracetam, phenytoin, clonazepam * Diabetes Mellitus Type II: Hold glimepiride. Insulin sliding scale. * CHF: Type unknown. Not currently exacerbated. No prior echo on file. Hold carvedilol. * CAD: Hold clopidogrel. * Depression: Sertraline * Anxiety: Clonazepam * HTN: Hold losartan/HCTZ. * Constipation: Hold bowel regimen. * SARI: Not on therapy at home. Observe. HECTOR WEEKS MD Dec 24, 2016 14:38
[2016-12-24] MEDS: ACETAMINOPHEN 325 MG TAB (TYLENOL) PO PRN (17:07)
[2016-12-24] MEDS: INSULIN LISPRO 1 UNIT/0.01 ML (HUMALOG) DOSE SC SCH ×2 (17:30→21:00)
--- NOTE | 2016-12-24 17:39 | NUR ---
Unit of blood initiated at this time. Blood vitals entered. Will monitor patient for first 15 mins. Skin warm, dry, intact. Resprs nonlabored, even on RA.
--- NOTE | 2016-12-24 17:54 | NUR ---
No S/S of reaction at this time. Pt states "I don't feel any different". Will continue to monitor.
--- NOTE | 2016-12-24 18:45 | NUR ---
Blood continues to infuse at this time. Up in chair at this time. Pt denies needs. Skin warm, dry, intact. Resprs nonlabored, even on RA. Call light within reach.
--- NOTE | 2016-12-24 20:15 | NUR ---
Incontinent of loose stool. Up to bathroom at this time. Addendum: 12/24/16 at 2340 by Casie Khanna RN Blood infusion complete. Patient tolerated well.
[2016-12-24] MEDS: ATORVASTATIN 40 MG (LIPITOR) TABLET PO SCH (21:05)
[2016-12-24] MEDS: PANTOPRAZOLE IV 40 MG in SODIUM CHLORIDE 100 ML IV SCH (21:05)
[2016-12-24] MEDS: SODIUM CHLORIDE FLUSH 10 ML SYR IV PRN (21:13)
[2016-12-25] VITALS (12 sets, daily range): BP systolic 103–133; BP diastolic 58–83
[2016-12-25] MEDS: PANTOPRAZOLE IV 40 MG in SODIUM CHLORIDE 100 ML IV SCH ×4 (01:15→11:49)
[2016-12-25] MEDS: PANTOPRAZOLE 40 MG (PROTONIX) TAB PO SCH (06:02)
[2016-12-25] MEDS: LEVOTHYROXINE 125 MCG (LEVOTHROID) TABLET PO SCH (06:05)
--- NOTE | 2016-12-25 06:06 | NUR ---
Pt rests throughout the night. Denies pain. Protonix drip infusing w/o difficulty. Resp even and non labored on RA. No needs at this time.
[2016-12-25 06:18] LABS: BASOPHILS % (AUTO) 1 % (0-2); EOSINOPHILS # (AUTO) 0.4 10^3uL; EOSINOPHILS % (AUTO) 6 % (0-4); MEAN CORPUSCULAR HGB CONC 32.1 g/dL (31.0-37.0); MEAN CORPUSCULAR VOLUME 97 FL (80-100); MEAN PLATELET VOLUME 9.8 FL (6.0-9.5); MONOCYTES # (AUTO) 0.6 X10^3; MONOCYTES % (AUTO) 9 % (3-11); NEUTROPHILS # (AUTO) 3.5 X10^3; NEUTROPHILS % (AUTO) 53 % (51-67); PLATELET COUNT 232 10^3uL (150-450)
[2016-12-25] MEDS: INSULIN LISPRO 1 UNIT/0.01 ML (HUMALOG) DOSE SC SCH ×4 (06:44→21:00)
[2016-12-25] MEDS: LEVETIRACETAM 500 MG (KEPPRA) TABLET PO SCH ×3 (09:06→18:55)
[2016-12-25] MEDS: CARVEDILOL 6.25 MG (COREG) TAB PO SCH ×2 (09:06→18:55)
[2016-12-25] MEDS: PHENYTOIN ER 100 MG (DILANTIN) CAPSULE PO SCH ×2 (09:07→20:10)
[2016-12-25] MEDS: LEVODOPA PO SCH ×2 (09:07→20:10)
[2016-12-25] MEDS: SERTRALINE 100 MG (ZOLOFT) TABLET PO SCH (09:07)
[2016-12-25] MEDS: CARBIDOPA PO SCH ×2 (09:07→20:10)
[2016-12-25] MEDS: clonazePAM 0.5 MG (KlonoPIN) TAB PO SCH ×3 (09:07→18:55)
--- NOTE | 2016-12-25 10:51 | Progress Note (E) ---
Progress Note SUBJECTIVE Overnight, no major issues. Tolerated transfusion. Vitals stable. Stool not sent for occult blood as ordered. Remind staff to send sample. Hgb down to 7.9 so planning to give second unit. Called [facility] to again request records from hospitalization 12/08-12/14. Records received and copy on hard chart. In brief summary, surgery was following for concern of gastric pneumatosis and anemia. Documented discussion regarding risk/benefit of EGD and colonoscopy. At that time, patient ultimately decided not to have endoscopy since even if cancer was found he apparently didn't want surgery. During the stay, he has an aspiration event and had delirium. All have since improved and since discharge from that hospital stay he has done well... except for recurrent signs of GI bleed and anemia. On exam, alert, and interactive. Oriented. Discussed findings. He does recall declining endoscopy when in [place] but again discussed risk/benefit. He is for some reason concerned about "injecting barium" but explained this would not be part of that procedure. Agreeable to EGD now if so recommended by surgery. Consult order filed. OBJECTIVE Vital Signs Date Time Temp Pulse Resp B/P Pulse Ox O2 Delivery O2 Flow Rate FiO2 12/25/16 08:17 98.5 65 20 119/66 94 Room air 12/24/16 15:53 0.00 I & O 12/24/16 12/25/16 Cumulative From/Thru 19:00 07:00 12/22/16 08:12 - 12/25/16 06:27 Intake Total 237 ml 982 ml 7184 ml Output Total 425 ml 850 ml 4375 ml Balance -188 ml 132 ml 2809 ml GEN: Awake, interactive, oriented. NAD at present. Feels stronger overall. HEENT: EOMI, clear sclerae, somewhat dry oral mucosa, poor dentition. CV: Regular without significant murmur. PULM: CTA B with mildly diminished bases. No R/R/W. ABD: Soft, non-tender, no guarding or rebound. EXTR: No edema. INTEG: Petechiae in upper and lower extremities bilaterally. Bruises on arms, hands. Healing abrasion/contusion to left knee. Excoriations on upper arms bilaterally. NEURO: No apparent focal motor neuro deficit though he has parkinsonian tremor. Gait improved with walker. Lab-Past 14 Days, 35 Results 12/22/16 08:30: Absolute Band Neutrophils 0.0, Alanine Aminotransferase (ALT/SGPT) 46, Albumin 2.8L, Albumin/Globulin Ratio 0.736L, Alkaline Phosphatase 182H, Anion Gap 15.6H , Aspartate Amino Transf (AST/SGOT) 51H, BUN/Creatinine Ratio 18, Band Neutrophils % 0, Basophils # (Auto) , Basophils # (Manual) 0.0, Basophils % ( Manual) 0, Basophils (%) (Auto) , Blood Morphology Comment Normal, Blood Urea Nitrogen 13, Calcium Level 8.2L, Calcium/Ionized Calcium Ratio 3.7L, Calculated Osmolality 273L, Carbon Dioxide Level 23, Chloride Level 108, Creatinine 0.71L, Differential Total Cells Counted 100, Eosinophils # 0.2, Eosinophils # (Auto) , Eosinophils % (Manual) 1, Eosinophils (%) (Auto) , Estimat Glomerular Filtration Rate 133.5, Estimated GFR (Non- 110.3, Glucose Level 27#*L, Hematocrit 31.10L, Hemoglobin 9.8L, Lymphocytes # 1.4, Lymphocytes # ( Auto) , Lymphocytes % (Manual) 7L, Lymphocytes (%) (Auto) , Mean Corpuscular Hemoglobin 31.0, Mean Corpuscular Hemoglobin Concent 31.5, Mean Corpuscular Volume 98, Mean Platelet Volume 9.8H, Monocytes # 1.0, Monocytes # (Auto) , Monocytes % (Manual) 5, Monocytes (%) (Auto) , EJ-Ewj-V-Type Natriuretic Peptide 429H, Neutrophils # 17.6, Neutrophils # (Auto) , Neutrophils (%) (Auto) , Platelet Count 482H, Potassium Level 4.0, Red Blood Count 3.16L, Red Cell Distribution Width 15.0, Segmented Neutrophils % 87H, Sodium Level 143, Total Bilirubin 0.3, Total Protein 6.6, White Blood Count 20.28H 12/22/16 08:50: Free Thyroxine (T4) Calculated 0.83, Phenytoin (Dilantin) Level 8.5L, Thyroid Stimulating Hormone (TSH) 4.84#H 12/22/16 17:55: Urine Bilirubin Negative, Urine Blood Negative, Urine Clarity Clear, Urine Collection Type Clean catch, Urine Color Yellow, Urine Glucose (UA) Negative, Urine Ketones Negative, Urine Leukocyte Esterase Negative, Urine Nitrite Negative, Urine Protein Negative, Urine Specific Thompson 1.010, Urine Urobilinogen 0.2, Urine pH 6.5 12/23/16 05:02: Anion Gap 8.7, BUN/Creatinine Ratio 23H, Basophils # (Auto) 0.0, Basophils (%) ( Auto) 0, Blood Urea Nitrogen 15, Calcium Level 7.6L, Carbon Dioxide Level 27, Chloride Level 108, Creatinine 0.66L, Eosinophils # (Auto) 0.3, Eosinophils (%) (Auto) 3, Estimat Glomerular Filtration Rate 145.2, Estimated GFR (Non- 120.0, Glucose Level 89#, Hematocrit 24.70L, Hemoglobin 7.8L, Lymphocytes # (Auto) 2.3, Lymphocytes (%) (Auto) 25, Mean Corpuscular Hemoglobin 31.0, Mean Corpuscular Hemoglobin Concent 31.6, Mean Corpuscular Volume 98, Mean Platelet Volume 9.9H, Monocytes # (Auto) 1.0, Monocytes (%) ( Auto) 11, Neutrophils # (Auto) 5.5, Neutrophils (%) (Auto) 60, Platelet Count 282, Potassium Level 4.1, Red Blood Count 2.52L, Red Cell Distribution Width 14.9, Sodium Level 140, White Blood Count 9.18, Smear Scan Yes 12/24/16 05:35: Anion Gap 6.4, BUN/Creatinine Ratio 23H, Basophils # (Auto) 0.0, Basophils (%) ( Auto) 1, Blood Urea Nitrogen 14, Calcium Level 7.5L, Carbon Dioxide Level 29, Chloride Level 111H, Creatinine 0.61L, Eosinophils # (Auto) 0.4, Eosinophils (% ) (Auto) 5H, Estimat Glomerular Filtration Rate 159.1, Estimated GFR (Non- 131.5, Glucose Level 106, Hematocrit 22.70L, Hemoglobin 7.2L, Lymphocytes # (Auto) 1.9, Lymphocytes (%) (Auto) 27, Mean Corpuscular Hemoglobin 31.2, Mean Corpuscular Hemoglobin Concent 31.7, Mean Corpuscular Volume 98, Mean Platelet Volume 9.8H, Monocytes # (Auto) 0.8, Monocytes (%) ( Auto) 11, Neutrophils # (Auto) 4.1, Neutrophils (%) (Auto) 57, Platelet Count 243, Potassium Level 3.8, Red Blood Count 2.31L, Red Cell Distribution Width 14.9, Sodium Level 142, White Blood Count 7.17 12/24/16 15:25: Activated Partial Thromboplast Time 28.8, Prothromb Time International Ratio 1.1 , Prothrombin Time 11.8 12/24/16 21:36: Hematocrit 25.80L, Hemoglobin 8.2L 12/25/16 05:40: Basophils # (Auto) 0.0, Basophils (%) (Auto) 1, Eosinophils # (Auto) 0.4, Eosinophils (%) (Auto) 6H, Hematocrit 24.60L, Hemoglobin 7.9L, Lymphocytes # ( Auto) 2.0, Lymphocytes (%) (Auto) 31, Mean Corpuscular Hemoglobin 31.0, Mean Corpuscular Hemoglobin Concent 32.1, Mean Corpuscular Volume 97, Mean Platelet Volume 9.8H, Monocytes # (Auto) 0.6, Monocytes (%) (Auto) 9, Neutrophils # (Auto ) 3.5, Neutrophils (%) (Auto) 53, Platelet Count 232, Red Blood Count 2.55L, Red Cell Distribution Width 15.7H, White Blood Count 6.50, Smear Scan Yes 12/22/16 ACUTE ABD SERIES Indication: Vomiting PA chest, supine and upright abdominal images were obtained. Bowel gas pattern is normal. There is no intraperitoneal free air. Lungs are clear. There are no pathologic masses or calcifications. Impression: Negative abdomen series. REFERENCE 12/08/16 CT ABDOMEN/PELVIS W PROCEDURE: CT abdomen and pelvis with contrast. TECHNIQUE: Multiple contiguous axial images were obtained through the abdomen and pelvis after administration of intravenous contrast. INDICATION: Ileus, nausea, and vomiting. There is abnormal thickening of the quinonez of the greater and lesser curvature of the stomach at the proximal body, fundus, and cardia. The segments of abnormal thickened gastric wall showed mural air and emphysematous gastritis. The draining venous system about the lesser and greater curvature shows intraluminal venous gas which extends into the liver and into the peripheral anti-dependent portal venous branches. The celiac artery , its primary branches, the superior mesenteric, and the inferior mesenteric arteries were all widely patent. The distal gastric body and its antrum thin walled, non thickened, without mural air. The duodenum, the small and the large bowel quinonez all non thickened. There were no other areas of enteric mural gas. There was no pneumatosis intestinalis. There is some gas in the gastric quinonez dissecting through the cardia and into the distal thoracic esophagus. The distal thoracic esophagus irregular, nodular, and thickened with its single wall thickness of 1.6 cm and that structure measuring short-axis outer wall/ outer wall diameter of 3.0 cm. I am told that the patient has been vomiting and retching. It is conceivable that the esophageal thickening is from a tear and some intramural hematoma and that the retching itself accounts for gastric emphysema. Other etiologies such as emphysematous gastritis, however, could not be excluded. Again this would be a very unusual location for arterial insufficiency accounting for ischemia, and we note no arterial obstruction. There is no free intraperitoneal air or findings of a transmural perforation. Aside from the portal venous air, the liver appeared otherwise unremarkable. The spleen is negative. There is a benign fatty nodule in the left adrenal gland , 1.8 cm. The pancreas appeared normal. There are bilateral renal parapelvic cysts greater left without hydronephrosis. The kidneys nonacute. There is no ascites, abscess, hematoma, or loculated fluid collection. IMPRESSION: Thickening of the quinonez of the proximal stomach along its greater and lesser curvatures through the cardia and into the distal esophagus. The areas of abnormal gastric wall thickening are accompanied by pneumatosis and gastric emphysema. There is heterogeneous thickening and irregular appearance of the distal thoracic esophagus. A unifying consideration in the history provided would raise the question of esophageal mucosal tear and intramural hemorrhage owing to the vomiting and the vomiting-inducing gastric emphysema with the venous drainage of this air accounting for the intrahepatic portal venous air. Infectious etiology such as emphysematous gastritis, however, could not be excluded; and given the abnormal appearance of the distal thoracic esophagus, its neoplastic infiltration cannot be excluded. Endoscopic correlation recommended. No free air or findings of a transmural perforation. The distal stomach, the duodenum, the small and the large bowel were unremarkable aside from a suggestion of mild regional small bowel ileus in the upper abdomen. Benign incidental renal parapelvic cyst. No biliary dilatation. No ascites. No arterial obstruction demonstrated. INDICATION: Abdominal pain Upper GI study and small bowel performed with Omnipaque contrast. Comparison made to CT of earlier today. The esophagus shows moderate dilatation in its proximal to midportion with diffuse irregularity and narrowing of the distal third of the esophagus. There is no extravasation of contrast. There is marked diffuse irregularity of the gastric wall compatible with the gastric wall thickening and pneumatosis visualized on the CT study. The duodenal bulb and sweep are unremarkable. Small bowel showed normal caliber throughout with normal small bowel fold pattern. Contrast reaches the right colon after about one hour and 20 minutes. There is no small bowel obstruction. IMPRESSION: There is diffuse thickening and irregularity of the lower esophagus and of the stomach, corresponding to the CT findings earlier today. There is no extravasation of contrast or focal ulcer. The differential diagnosis for pneumatosis in the stomach and distal esophagus would include infectious causes, ischemic causes, or caustic ingestion. There is slow motility of the esophagus due to the lower esophageal narrowing. Further evaluation with endoscopy is recommended as clinically warranted. The small bowel appeared unremarkable. ASSESSMENT Chris Velázquez is a 66 year old male admitted from ED 12/22 where he presented from care home with altered mental status and nausea/vomiting. He was found to have profound hypoglycemia on admit that improved with glucose supplement. However, he was also found to have worsening anemia and emesis worrisome for upper GI bleed. He has numerous chronic problems and recently had gastric pneumatosis and biliary pneumatosis that necessitated transfer to [facility]. However , no surgery or endoscopic interventions were reportedly done there. PLAN * Hypoglycemia: Resolved. Glucose 27 on admit, improved with IVF. Held glimepiride. * Nausea/Vomiting: Uncertain cause. Improved since admit. Ondansetron, promethazine. * Upper GI Bleed: Has history of GI bleed and was most recently evaluated in ED 12/08/2016 by surgery for gastric pneumatosis with protal venous air in addition to concern for GI bleed. He had been transferred to [facility] for more advanced care. Ultimately did not have any intervention but he recovered somewhat and was discharged to [facility] for skilled care. Prior to this admit, likely had hematochezia again. This was not initially addressed on this admit. Check stool for occult blood. Coag profile reassuring. Clear liquid diet for now. Pantoprazole bolus and drip. Consult surgery for consideration of upper endoscopy. Records from [facility] admission placed on hard chart. * Acute Blood Loss Anemia: Hgb julio 7.2 12/24. Transfused 12/24 and 12/25 for Hgb < 8. * F/E/N: CLD for now. Peripheral IV. * Prophylaxis: SCDs * Code Status: Full code. Discussed with patient 12/24. * Dispo: Inpatient. Expect 3-4 day stay. Surgery consult pending. CHRONIC ISSUES * Parkinson's disease: Carbidopa/levodopa * HLD: Atorvastatin * Seizure Disorder: Levetiracetam, phenytoin, clonazepam * Diabetes Mellitus Type II: Hold glimepiride. Insulin sliding scale. * CHF: Type unknown. Not currently exacerbated. No prior echo on file. Hold carvedilol. * CAD: Hold clopidogrel. * Depression: Sertraline * Anxiety: Clonazepam * HTN: Hold losartan/HCTZ. * Constipation: Hold bowel regimen. * SARI: Not on therapy at home. Observe. HECTOR WEEKS MD Dec 25, 2016 10:36
--- NOTE | 2016-12-25 12:00 | NUR ---
During med. pass this morning the patient told this nurse "I think the police and [employer] are corrupt and they can be bribed for only $50. After the [employer] had Fredy killed is when I started having anxiety, paranoia, and panic attacks."
[2016-12-25] MEDS ORDERED: NS 250 ML (IVPB) BAG IV SCH (12:15)
--- NOTE | 2016-12-25 12:39 | NUR ---
Consent signed on 12/24 for blood transfusion. Pt. remains agreeable to receiving blood products. VSS. 1st unit PRBC initiated at this time.
--- NOTE | 2016-12-25 12:58 | NUR ---
Pt. tolerating infusion well without reaction. VSS. Rate increased to 150ml/hr.
--- NOTE | 2016-12-25 14:39 | NUR ---
Pt. has tolerated infusion well. VSS. Transfusion complete at this time.
--- NOTE | 2016-12-25 17:00 | NUR ---
The patient was incontinent of a large amount of stool. He was able to walk to the bathroom to get cleaned up. Gait continues to be awkward and the patient does not allow any instruction on safety with ambulation.
--- NOTE | 2016-12-25 18:00 | NUR ---
Patient has taken clear liquids through the day without complaint. Informed him hemoccult was negative but he continues to maintain he has seen blood in his stool and has a metallic taste in his mouth. He stated "I think it's the poison they've been tainting my medicine with." Blood sugars have remained stable with clear liquid diet. No complaint of abdominal pain.
--- NOTE | 2016-12-25 19:30 | NUR ---
Informed the patient's DPOA about EGD scheduled for tomorrow.
[2016-12-25] MEDS: ATORVASTATIN 40 MG (LIPITOR) TABLET PO SCH (20:10)
[2016-12-26] VITALS (7 sets, daily range): BP systolic 118–138; BP diastolic 64–74
[2016-12-26] MEDS: PANTOPRAZOLE 40 MG (PROTONIX) TAB PO SCH (06:17)
[2016-12-26] MEDS: LEVOTHYROXINE 125 MCG (LEVOTHROID) TABLET PO SCH (06:17)
[2016-12-26 06:27] LABS: BASOPHILS % (AUTO) 1 % (0-2); EOSINOPHILS # (AUTO) 0.3 10^3uL; EOSINOPHILS % (AUTO) 6 % (0-4); LYMPHOCYTES # (AUTO) 1.4 X10^3; MEAN CORPUSCULAR HEMOGLOBIN 29.8 PG (26.0-34.0); MEAN CORPUSCULAR VOLUME 93 FL (80-100); MEAN PLATELET VOLUME 9.9 FL (6.0-9.5); MONOCYTES # (AUTO) 0.6 X10^3; MONOCYTES % (AUTO) 10 % (3-11); NEUTROPHILS # (AUTO) 3.5 X10^3; NEUTROPHILS % (AUTO) 60 % (51-67); PLATELET COUNT 211 10^3uL (150-450)
--- NOTE | 2016-12-26 06:28 | NUR ---
Patient NPO since Midnight (00) for possible procedure today, and patient is compliant with this. Calls when needs to use restroom, continues to have loose stools. No needs at this time.
[2016-12-26 06:50] LABS: ALBUMIN 2.1 g/dL (3.4-5.0)
[2016-12-26] MEDS: INSULIN LISPRO 1 UNIT/0.01 ML (HUMALOG) DOSE SC SCH ×4 (07:30→21:00)
[2016-12-26] MEDS: LEVETIRACETAM 500 MG (KEPPRA) TABLET PO SCH ×3 (08:49→19:53)
[2016-12-26] MEDS: PHENYTOIN ER 100 MG (DILANTIN) CAPSULE PO SCH ×2 (08:50→20:56)
[2016-12-26] MEDS: SERTRALINE 100 MG (ZOLOFT) TABLET PO SCH (08:50)
[2016-12-26] MEDS: CARVEDILOL 6.25 MG (COREG) TAB PO SCH ×2 (08:50→19:52)
[2016-12-26] MEDS: CARBIDOPA PO SCH ×2 (08:50→20:56)
[2016-12-26] MEDS: LEVODOPA PO SCH ×2 (08:50→20:56)
[2016-12-26] MEDS: clonazePAM 0.5 MG (KlonoPIN) TAB PO SCH ×3 (08:51→19:52)
[2016-12-26] MEDS ORDERED: LACTATED RINGERS 1,000 ML IV SCH (10:20)
--- NOTE | 2016-12-26 10:25 | Progress Note (E) ---
Progress Note SUBJECTIVE Clinical picture continues to improve. Hgb 10.8 after second unit of blood transfusion, 9.0 this AM. Surgery planning EGD today. OBJECTIVE Vital Signs Date Time Temp Pulse Resp B/P Pulse Ox O2 Delivery O2 Flow Rate FiO2 12/26/16 08:24 96.0 62 18 123/64 95 Room air 12/24/16 15:53 0.00 I & O 12/25/16 12/26/16 Cumulative From/Thru 19:00 07:00 12/22/16 08:12 - 12/26/16 06:10 Intake Total 1238 ml 200 ml 8622 ml Output Total 500 ml 1700 ml 6575 ml Balance 738 ml -1500 ml 2047 ml GEN: Awake, interactive, oriented. NAD at present. Feels stronger overall. HEENT: EOMI, clear sclerae, somewhat dry oral mucosa, poor dentition. CV: Regular without significant murmur. PULM: CTA B with mildly diminished bases. No R/R/W. ABD: Soft, non-tender, no guarding or rebound. EXTR: No edema. INTEG: Petechiae in upper and lower extremities bilaterally. Bruises on arms, hands. Healing abrasion/contusion to left knee. Excoriations on upper arms bilaterally. NEURO: No apparent focal motor neuro deficit though he has parkinsonian tremor. Gait improved with walker. Lab-Past 14 Days, 35 Results 12/22/16 08:30: Absolute Band Neutrophils 0.0, Alanine Aminotransferase (ALT/SGPT) 46, Albumin 2.8L, Albumin/Globulin Ratio 0.736L, Alkaline Phosphatase 182H, Anion Gap 15.6H , Aspartate Amino Transf (AST/SGOT) 51H, BUN/Creatinine Ratio 18, Band Neutrophils % 0, Basophils # (Auto) , Basophils # (Manual) 0.0, Basophils % ( Manual) 0, Basophils (%) (Auto) , Blood Morphology Comment Normal, Blood Urea Nitrogen 13, Calcium Level 8.2L, Calcium/Ionized Calcium Ratio 3.7L, Calculated Osmolality 273L, Carbon Dioxide Level 23, Chloride Level 108, Creatinine 0.71L, Differential Total Cells Counted 100, Eosinophils # 0.2, Eosinophils # (Auto) , Eosinophils % (Manual) 1, Eosinophils (%) (Auto) , Estimat Glomerular Filtration Rate 133.5, Estimated GFR (Non- 110.3, Glucose Level 27#*L, Hematocrit 31.10L, Hemoglobin 9.8L, Lymphocytes # 1.4, Lymphocytes # ( Auto) , Lymphocytes % (Manual) 7L, Lymphocytes (%) (Auto) , Mean Corpuscular Hemoglobin 31.0, Mean Corpuscular Hemoglobin Concent 31.5, Mean Corpuscular Volume 98, Mean Platelet Volume 9.8H, Monocytes # 1.0, Monocytes # (Auto) , Monocytes % (Manual) 5, Monocytes (%) (Auto) , VC-Uhn-S-Type Natriuretic Peptide 429H, Neutrophils # 17.6, Neutrophils # (Auto) , Neutrophils (%) (Auto) , Platelet Count 482H, Potassium Level 4.0, Red Blood Count 3.16L, Red Cell Distribution Width 15.0, Segmented Neutrophils % 87H, Sodium Level 143, Total Bilirubin 0.3, Total Protein 6.6, White Blood Count 20.28H 12/22/16 08:50: Free Thyroxine (T4) Calculated 0.83, Phenytoin (Dilantin) Level 8.5L, Thyroid Stimulating Hormone (TSH) 4.84#H 12/22/16 17:55: Urine Bilirubin Negative, Urine Blood Negative, Urine Clarity Clear, Urine Collection Type Clean catch, Urine Color Yellow, Urine Glucose (UA) Negative, Urine Ketones Negative, Urine Leukocyte Esterase Negative, Urine Nitrite Negative, Urine Protein Negative, Urine Specific Gilmer 1.010, Urine Urobilinogen 0.2, Urine pH 6.5 12/23/16 05:02: Anion Gap 8.7, BUN/Creatinine Ratio 23H, Basophils # (Auto) 0.0, Basophils (%) ( Auto) 0, Blood Urea Nitrogen 15, Calcium Level 7.6L, Carbon Dioxide Level 27, Chloride Level 108, Creatinine 0.66L, Eosinophils # (Auto) 0.3, Eosinophils (%) (Auto) 3, Estimat Glomerular Filtration Rate 145.2, Estimated GFR (Non- 120.0, Glucose Level 89#, Hematocrit 24.70L, Hemoglobin 7.8L, Lymphocytes # (Auto) 2.3, Lymphocytes (%) (Auto) 25, Mean Corpuscular Hemoglobin 31.0, Mean Corpuscular Hemoglobin Concent 31.6, Mean Corpuscular Volume 98, Mean Platelet Volume 9.9H, Monocytes # (Auto) 1.0, Monocytes (%) ( Auto) 11, Neutrophils # (Auto) 5.5, Neutrophils (%) (Auto) 60, Platelet Count 282, Potassium Level 4.1, Red Blood Count 2.52L, Red Cell Distribution Width 14.9, Sodium Level 140, White Blood Count 9.18, Smear Scan Yes 12/24/16 05:35: Anion Gap 6.4, BUN/Creatinine Ratio 23H, Basophils # (Auto) 0.0, Basophils (%) ( Auto) 1, Blood Urea Nitrogen 14, Calcium Level 7.5L, Carbon Dioxide Level 29, Chloride Level 111H, Creatinine 0.61L, Eosinophils # (Auto) 0.4, Eosinophils (% ) (Auto) 5H, Estimat Glomerular Filtration Rate 159.1, Estimated GFR (Non- 131.5, Glucose Level 106, Hematocrit 22.70L, Hemoglobin 7.2L, Lymphocytes # (Auto) 1.9, Lymphocytes (%) (Auto) 27, Mean Corpuscular Hemoglobin 31.2, Mean Corpuscular Hemoglobin Concent 31.7, Mean Corpuscular Volume 98, Mean Platelet Volume 9.8H, Monocytes # (Auto) 0.8, Monocytes (%) ( Auto) 11, Neutrophils # (Auto) 4.1, Neutrophils (%) (Auto) 57, Platelet Count 243, Potassium Level 3.8, Red Blood Count 2.31L, Red Cell Distribution Width 14.9, Sodium Level 142, White Blood Count 7.17 12/24/16 15:25: Activated Partial Thromboplast Time 28.8, Prothromb Time International Ratio 1.1 , Prothrombin Time 11.8 12/24/16 21:36: Hematocrit 25.80L, Hemoglobin 8.2L 12/25/16 05:40: Basophils # (Auto) 0.0, Basophils (%) (Auto) 1, Eosinophils # (Auto) 0.4, Eosinophils (%) (Auto) 6H, Hematocrit 24.60L, Hemoglobin 7.9L, Lymphocytes # ( Auto) 2.0, Lymphocytes (%) (Auto) 31, Mean Corpuscular Hemoglobin 31.0, Mean Corpuscular Hemoglobin Concent 32.1, Mean Corpuscular Volume 97, Mean Platelet Volume 9.8H, Monocytes # (Auto) 0.6, Monocytes (%) (Auto) 9, Neutrophils # (Auto ) 3.5, Neutrophils (%) (Auto) 53, Platelet Count 232, Red Blood Count 2.55L, Red Cell Distribution Width 15.7H, White Blood Count 6.50, Smear Scan Yes 12/25/16 10:55: Stool Occult Blood Negative 12/25/16 16:10: Hematocrit 33.90L, Hemoglobin 10.8L 12/26/16 05:40: Hematocrit 28.10L, Hemoglobin 9.0L, Albumin 2.1#L, Anion Gap 10.0, Basophils # ( Auto) 0.0, Basophils (%) (Auto) 1, Blood Urea Nitrogen 11, Calcium Level 7.7L, Carbon Dioxide Level 24, Chloride Level 112H, Creatinine 0.56L, Eosinophils # ( Auto) 0.3, Eosinophils (%) (Auto) 6H, Estimat Glomerular Filtration Rate 175.6, Estimated GFR (Non- 145.1, Glucose Level 85, Lymphocytes # (Auto ) 1.4, Lymphocytes (%) (Auto) 24, Mean Corpuscular Hemoglobin 29.8, Mean Corpuscular Hemoglobin Concent 32.0, Mean Corpuscular Volume 93, Mean Platelet Volume 9.9H, Monocytes # (Auto) 0.6, Monocytes (%) (Auto) 10, Neutrophils # ( Auto) 3.5, Neutrophils (%) (Auto) 60, Phosphorus Level 2.7#, Platelet Count 211 , Potassium Level 3.6, Red Blood Count 3.02L, Red Cell Distribution Width 17.4H , Sodium Level 142, White Blood Count 5.80 12/22/16 ACUTE ABD SERIES Indication: Vomiting PA chest, supine and upright abdominal images were obtained. Bowel gas pattern is normal. There is no intraperitoneal free air. Lungs are clear. There are no pathologic masses or calcifications. Impression: Negative abdomen series. REFERENCE 12/08/16 CT ABDOMEN/PELVIS W PROCEDURE: CT abdomen and pelvis with contrast. TECHNIQUE: Multiple contiguous axial images were obtained through the abdomen and pelvis after administration of intravenous contrast. INDICATION: Ileus, nausea, and vomiting. There is abnormal thickening of the quinonez of the greater and lesser curvature of the stomach at the proximal body, fundus, and cardia. The segments of abnormal thickened gastric wall showed mural air and emphysematous gastritis. The draining venous system about the lesser and greater curvature shows intraluminal venous gas which extends into the liver and into the peripheral anti-dependent portal venous branches. The celiac artery , its primary branches, the superior mesenteric, and the inferior mesenteric arteries were all widely patent. The distal gastric body and its antrum thin walled, non thickened, without mural air. The duodenum, the small and the large bowel quinonez all non thickened. There were no other areas of enteric mural gas. There was no pneumatosis intestinalis. There is some gas in the gastric quinonez dissecting through the cardia and into the distal thoracic esophagus. The distal thoracic esophagus irregular, nodular, and thickened with its single wall thickness of 1.6 cm and that structure measuring short-axis outer wall/ outer wall diameter of 3.0 cm. I am told that the patient has been vomiting and retching. It is conceivable that the esophageal thickening is from a tear and some intramural hematoma and that the retching itself accounts for gastric emphysema. Other etiologies such as emphysematous gastritis, however, could not be excluded. Again this would be a very unusual location for arterial insufficiency accounting for ischemia, and we note no arterial obstruction. There is no free intraperitoneal air or findings of a transmural perforation. Aside from the portal venous air, the liver appeared otherwise unremarkable. The spleen is negative. There is a benign fatty nodule in the left adrenal gland , 1.8 cm. The pancreas appeared normal. There are bilateral renal parapelvic cysts greater left without hydronephrosis. The kidneys nonacute. There is no ascites, abscess, hematoma, or loculated fluid collection. IMPRESSION: Thickening of the quinonez of the proximal stomach along its greater and lesser curvatures through the cardia and into the distal esophagus. The areas of abnormal gastric wall thickening are accompanied by pneumatosis and gastric emphysema. There is heterogeneous thickening and irregular appearance of the distal thoracic esophagus. A unifying consideration in the history provided would raise the question of esophageal mucosal tear and intramural hemorrhage owing to the vomiting and the vomiting-inducing gastric emphysema with the venous drainage of this air accounting for the intrahepatic portal venous air. Infectious etiology such as emphysematous gastritis, however, could not be excluded; and given the abnormal appearance of the distal thoracic esophagus, its neoplastic infiltration cannot be excluded. Endoscopic correlation recommended. No free air or findings of a transmural perforation. The distal stomach, the duodenum, the small and the large bowel were unremarkable aside from a suggestion of mild regional small bowel ileus in the upper abdomen. Benign incidental renal parapelvic cyst. No biliary dilatation. No ascites. No arterial obstruction demonstrated. INDICATION: Abdominal pain Upper GI study and small bowel performed with Omnipaque contrast. Comparison made to CT of earlier today. The esophagus shows moderate dilatation in its proximal to midportion with diffuse irregularity and narrowing of the distal third of the esophagus. There is no extravasation of contrast. There is marked diffuse irregularity of the gastric wall compatible with the gastric wall thickening and pneumatosis visualized on the CT study. The duodenal bulb and sweep are unremarkable. Small bowel showed normal caliber throughout with normal small bowel fold pattern. Contrast reaches the right colon after about one hour and 20 minutes. There is no small bowel obstruction. IMPRESSION: There is diffuse thickening and irregularity of the lower esophagus and of the stomach, corresponding to the CT findings earlier today. There is no extravasation of contrast or focal ulcer. The differential diagnosis for pneumatosis in the stomach and distal esophagus would include infectious causes, ischemic causes, or caustic ingestion. There is slow motility of the esophagus due to the lower esophageal narrowing. Further evaluation with endoscopy is recommended as clinically warranted. The small bowel appeared unremarkable. ASSESSMENT Chris Velázquez is a 66 year old male admitted from ED 12/22 where [facility] with altered mental status and nausea/vomiting. He was found to have profound hypoglycemia on admit that improved with glucose supplement. However, he was also found to have worsening anemia and emesis worrisome for upper GI bleed. He has numerous chronic problems and recently had gastric pneumatosis and biliary pneumatosis that necessitated transfer to [facility]. However , no surgery or endoscopic interventions were reportedly done there. PLAN * Upper GI Bleed: Has history of GI bleed and was most recently evaluated in ED 12/08/2016 by surgery for gastric pneumatosis with protal venous air in addition to concern for GI bleed. He had been transferred to [facility] for more advanced care. Ultimately did not have any intervention but he recovered somewhat and was discharged to [facility] for skilled care. Prior to this admit, likely had hematochezia again. This was not initially addressed on this admit. Stool negative for occult blood. Coag profile reassuring. Gave pantoprazole bolus and drip. Consulted surgery for consideration of upper endoscopy, planned 12/26. Records from [facility] admission placed on hard chart. * Acute Blood Loss Anemia: Hgb julio 7.2 12/24. Transfused 12/24 and 12/25 for Hgb < 8. * Hypoglycemia: Resolved. Glucose 27 on admit, improved with IVF. Held glimepiride. * Nausea/Vomiting: Resolved. Ondansetron, promethazine. * F/E/N: NPO for EGD. LR at maintenance. Peripheral IV. * Prophylaxis: SCDs * Code Status: Full code. Discussed with patient 12/24. * Dispo: Inpatient. EGD 12/26. CHRONIC ISSUES * Parkinson's disease: Carbidopa/levodopa * HLD: Atorvastatin * Seizure Disorder: Levetiracetam, phenytoin, clonazepam * Diabetes Mellitus Type II: Hold glimepiride. Insulin sliding scale. * CHF: Type unknown. Not currently exacerbated. No prior echo on file. Hold carvedilol. * CAD: Hold clopidogrel. * Depression: Sertraline * Anxiety: Clonazepam * HTN: Hold losartan/HCTZ. * Constipation: Hold bowel regimen. * SARI: Not on therapy at home. Observe. HECTOR WEEKS MD Dec 26, 2016 10:24 HECTOR WEEKS MD Dec 26, 2016 10:24
--- NOTE | 2016-12-26 10:34 | CONSULTATION REPORT ---
ATTENDING PHYSICIAN: Kentrell Alonso MD CONSULTING PHYSICIAN: Perez Colin MD REPORT Date of Report: 12/26/2016 FINDINGS: Upper GI bleed DIAGNOSIS: 1. Upper GI bleed. 2. History of epilepsy. 3. History of Parkinson disease. RECOMMENDATIONS: The patient has been scheduled for upper endoscopy today. The risks and benefits were discussed including bleeding and perforation and he agrees to proceed. HISTORY OF PRESENT ILLNESS: The patient is a 66-year-old who was admitted from the ER on December 22 with hypoglycemia and a recent history of nausea and vomiting. He is found to be profoundly anemic with hemoglobin on admission of 9.8. This dropped down to 7.2 with fluid resuscitation. He reports a history of emesis with blood. He hasn't had any of that during the last several days in the hospital, but he has required blood transfusion with a total of 2 units having been given. He had been hospitalized in [place] earlier this month after presenting to our ER with anemia and CT findings showing gastric pneumatosis and air in the portal venous system. At that time his mindset was that he did not want to be aggressive in investigating this, because he did not want surgery even if there was something found that could be corrected. Apparently his thinking has changed, and he is now willing to consent for endoscopy. That is the reason that I was called. He hasn't had any abdominal pain. He does report that his bowel habits have sometimes been a bit altered but nothing that seems to be consistent. He does display some paranoia and some tangential thoughts during the interview, so it was difficult to get a very accurate history. PAST MEDICAL HISTORY: 1. Parkinson disease. 2. History of epilepsy with recent seizure. 3. History of anxiety. 4. Hypothyroidism. 5. Diabetes mellitus type 2. 6. Depression. 7. Sleep apnea. 8. Asthma. 9. Hypertension. SURGICAL HISTORY: 1. Cholecystectomy. 2. Coronary stents x2. 3. Colonoscopy. 4. Right cataract repair. ALLERGIES: 1. Sodium pentothal. 2. Aspartame. 3. Ether. 4. Thiopental. MEDICATIONS: See chart. SOCIAL HISTORY: The patient stopped smoking over 40 years ago. He does not use alcohol or drugs. He is single. He is currently living with his cousin. REVIEW OF SYSTEMS: As above. PHYSICAL EXAMINATION VITALS: Temperature 96.0, heart rate 62, respirations 18, blood pressure 123/64. O2 saturations are 95% on room air. GENERAL: The patient is an elderly gentleman who was sleeping and had to be awakened for the interview. He was somewhat drowsy at first, but once he began the conversation he was able to stay awake without apparent difficulty. HEENT: His sclerae are pale. LUNGS: Clear to auscultation bilaterally. HEART: S1, S2 regular rate and rhythm. ABDOMEN: Bowel sounds are present. Soft and nontender with no palpable masses. No guarding or rebound tenderness. He has a well healed subcostal right-sided scar from his cholecystectomy. EXTREMITIES: No cyanosis or edema. SKIN: Warm and dry with no jaundice. NEURO: Grossly intact, except for the above mentioned findings. LABORATORY: Hemoglobin today is 9.0. It was 10.8 yesterday afternoon after the transfusion. Platelets are 211.
--- NOTE | 2016-12-26 12:16 | NUR ---
Nutrition Follow Up: Patients appetite/intake were improving from 25% to 75-80%; he is getting an average intake of 45% the past two days. He is currently NPO for an EGD to assess for upper GI bleed. Weight today: N/A Labs: glucose 85 1. Will follow after surgery re: findings and plan of care.
[2016-12-26] MEDS ORDERED: SIMETHICONE 40 MG/0.6 ML (MYLICON DROPS) ORAL SYRINGE ONE (13:10)
[2016-12-26] MEDS ORDERED: LIDOCAINE 4% TOPICAL 4.5 ML SYR ONE (13:10)
--- NOTE | 2016-12-26 13:27 | NUR ---
To OR. Has been NPO except for medication.
[2016-12-26] MEDS ORDERED: MIDAZOLAM 2 MG/2 ML (VERSED) VIAL ONE (14:00)
[2016-12-26] MEDS ORDERED: PROPOFOL 20 ML IV ONE (14:00)
[2016-12-26] MEDS ORDERED: ALFENTANIL 500 MCG/ML (ALFENTA) 5 ML AMP IV ONE (14:00)
--- NOTE | 2016-12-26 14:45 | NUR ---
Patient returned to room for OR. Alert and talkative. OR reports that patient did well.
--- NOTE | 2016-12-26 15:08 | OPERATIVE REPORT ---
DATE OF OPERATION: 12/26/2016 PRE-OPERATIVE DIAGNOSIS: Upper GI bleed POST-OPERATIVE DIAGNOSIS: Esophageal lesion, likely malignant OPERATIVE PROCEDURE: Esophagogastroduodenoscopy SURGEON: Perez Colin MD ANESTHESIA: Monitored anesthesia care FINDINGS: 1. At the GE junction and extending both proximally and distally, there was a fungating mucosal lesion that is very likely malignant. A photograph was obtained. The surface of the mid to proximal esophagus was also very irregular and may contain the same entity. Biopsies were not obtained due to the patient's anemia and recent Plavix use. 2. The stomach and duodenum appeared unremarkable, though the fundus could not be completely evaluated due to retained food. INDICATION: The patient is a 66-year-old gentleman admitted to the Hospitalist service with a history of anemia and hematemesis. He presents today for upper endoscopy. DESCRIPTION OF PROCEDURE: The patient was informed of the risks and benefits and agreed to proceed, as did his DPOA. He was taken to the endoscopy suite where his oropharynx was anesthetized with Xylocaine. A bite block was placed. Sedation was administered the lighted endoscope was passed down the esophagus. There was some unusual resistance to passage of the scope distally and it was apparent that there was probably a lesion present that was obstructing the scope. Indeed this was seen, as described previously. A photograph was obtained of both the distal and the proximal esophagus. The main portion of this mass seemed to emanate from the GE junction. The scope was passed into the stomach where air was insufflated. The pylorus was cannulated and the first, second and third portions of the duodenum were visualized. No abnormalities were seen. The antrum, body, and fundus of the stomach were inspected. There was some retained solid and liquid material in the fundus. The cardia appeared somewhat inflamed and there was involvement with this same lesion that was seen at the GE junction. It was not clear whether this extended further into the stomach because of the food matter that was obscuring the view, but I did not see any obvious evidence of malignancy involving the lesser curvature of the stomach. The scope was brought back into the esophagus and removed. The patient tolerated the procedure without complications.
--- NOTE | 2016-12-26 15:10 | NUR ---
Patient returen Addendum: 12/26/16 at 2119 by Casie Khanna RN above recorded in error
--- NOTE | 2016-12-26 19:30 | NUR ---
Patient tells this securities underwriter that he has stomach cancer. States it matter of fact and does not show any emotion. Patient has not had any complaint of pain today. Did have a low FSBS before supper and was given a snack and ate well from his supper tray.
[2016-12-26] MEDS: ATORVASTATIN 40 MG (LIPITOR) TABLET PO SCH (21:00)
--- NOTE | 2016-12-26 21:00 | NUR ---
When nurse enters room pt is talking to himself and does not acknowledge nurse for several minutes. Pt refuses his Lipitor, but takes his other HS meds without difficulty. Saline lock without redness or edema.
[2016-12-27 00:56] VITALS: BP 117/60
[2016-12-27 04:15] VITALS: BP 120/65
[2016-12-27] MEDS: PANTOPRAZOLE 40 MG (PROTONIX) TAB PO SCH (06:16)
[2016-12-27] MEDS: LEVOTHYROXINE 125 MCG (LEVOTHROID) TABLET PO SCH (06:16)
[2016-12-27 06:28] LABS: BASOPHILS % (AUTO) 1 % (0-2); EOSINOPHILS # (AUTO) 0.3 10^3uL; EOSINOPHILS % (AUTO) 4 % (0-4); LYMPHOCYTES # (AUTO) 1.3 X10^3; MEAN CORPUSCULAR HEMOGLOBIN 29.6 PG (26.0-34.0); MEAN CORPUSCULAR VOLUME 93 FL (80-100); MONOCYTES # (AUTO) 0.8 X10^3; MONOCYTES % (AUTO) 10 % (3-11); NEUTROPHILS # (AUTO) 4.9 X10^3; NEUTROPHILS % (AUTO) 67 % (51-67); PLATELET COUNT 251 10^3uL (150-450); WHITE BLOOD COUNT 7.36 10^3uL (4.0-11.0)
--- NOTE | 2016-12-27 06:30 | NUR ---
Accucheck is 137 this morning. Pt. slept in short intervals last night; watches movies and talks to self. Pt. appears to be getting stronger; stands taller with ambulation; although still unsteady at baseline. Pt. denies discomfort; cooperative with cares; very conversational on a number of real/imagined subjects. Call light and H2O within reach.
[2016-12-27 06:36] LABS: MEAN CORPUSCULAR HGB CONC 31.7 g/dL (31.0-37.0)
[2016-12-27] MEDS: INSULIN LISPRO 1 UNIT/0.01 ML (HUMALOG) DOSE SC SCH ×4 (07:30→21:00)
[2016-12-27 08:02] VITALS: BP 121/61
[2016-12-27] MEDS: SERTRALINE 100 MG (ZOLOFT) TABLET PO SCH (08:06)
[2016-12-27] MEDS: LEVETIRACETAM 500 MG (KEPPRA) TABLET PO SCH ×3 (08:06→18:17)
[2016-12-27] MEDS: CARBIDOPA PO SCH ×2 (08:06→20:07)
[2016-12-27] MEDS: LEVODOPA PO SCH ×2 (08:06→20:07)
[2016-12-27] MEDS: clonazePAM 0.5 MG (KlonoPIN) TAB PO SCH ×3 (08:07→18:17)
[2016-12-27] MEDS: CARVEDILOL 6.25 MG (COREG) TAB PO SCH ×2 (08:07→18:17)
[2016-12-27] MEDS: PHENYTOIN ER 100 MG (DILANTIN) CAPSULE PO SCH ×2 (08:07→20:06)
--- NOTE | 2016-12-27 08:30 | NUR ---
Pt sitting up in bed at this time. Skin warm, dry, intact. Resprs nonlabored, even on RA. SL intact. Denies needs. Will continue to monitor.
--- NOTE | 2016-12-27 08:53 | Progress Note (E) ---
Progress Note I reviewed the findings from his EGD with him today. This likely represents malignancy originating at the GE junction. I discussed with Dr. Alonso, and we will proceed with his staging workup including a chest CT. An oncology consult is being considered for when Dr. Bailey is here next week. CAROL GTZ MD Dec 27, 2016 08:53
--- NOTE | 2016-12-27 11:29 | Diagnostic Imaging Report ---
PROCEDURE: CT chest with contrast only. TECHNIQUE: Multiple contiguous axial images were obtained through the chest after administration of intravenous contrast. INDICATION: Gastric carcinoma staging. AVAILABLE COMPARISONS: None. FINDINGS: The great vessels are negative. Axillary lymph nodes are negative. Supraclavicular and mediastinal lymph nodes are negative. The hilar lymph nodes are negative. Pathologically enlarged subcarinal lymph node region is present measuring 4.3 x 2.7 cm The thoracic esophagus is dilated. The wall of the thoracic esophagus is abnormally thickened beginning in the mid esophageal region just below the pathologically enlarged lymph nodes in the subcarinal region. This thickening extends inferiorly to the EG junction. A mass-like appearance is noted at the EG junction protruding into the gastric cardia region. The retrocrural lymph nodes are negative. The there may be an enlarged periesophageal lymph node at the EG junction versus a portion of the mass at the EG junction. Left gastric lymph nodes are visible which are not significantly enlarged. Images through the upper abdomen showed the stomach to be distended with decreased pneumatosis of the stomach wall compared to the prior examination. Small bilateral pleural effusions are present. Scattered calcified lung granulomas are present. No noncalcified nodules are identified. There is no osteolytic or osteoblastic lesion identified. IMPRESSION: 1. Dilated proximal esophagus with esophageal wall thickening and mass of the mid and distal esophagus consistent with neoplasm. 2. Subcarinal lymphadenopathy consistent with metastasis. PET/CT may be helpful for staging. 3. Bilateral pleural effusions. 4. Decreased gastric pneumatosis when compared to the prior study. Dictated by: Dictated on workstation # [id number]
[2016-12-27 11:58] VITALS: BP 116/56
[2016-12-27 16:09] VITALS: BP 123/67
--- NOTE | 2016-12-27 17:21 | Progress Note (E) ---
Progress Note SUBJECTIVE No major issues overnight. Tolerating PO intake. Hgb stable at 9.2. Remains off clopidogrel. Surgery recommended CT chest for further staging and then referral to oncology. No surgical intervention at this time. OBJECTIVE Vital Signs Date Time Temp Pulse Resp B/P Pulse Ox O2 Delivery O2 Flow Rate FiO2 12/27/16 16:09 97.1 59 18 123/67 100 Room air 12/24/16 15:53 0.00 I & O 12/26/16 12/27/16 Cumulative From/Thru 19:00 07:00 12/22/16 08:12 - 12/27/16 06:47 Intake Total 0 ml 1244 ml 9866 ml Output Total 450 ml 1300 ml 8325 ml Balance -450 ml -56 ml 1541 ml GEN: Awake, interactive, oriented. NAD at present. Feels stronger overall. HEENT: EOMI, clear sclerae, somewhat dry oral mucosa, poor dentition. CV: Regular without significant murmur. PULM: CTA B with mildly diminished bases. No R/R/W. ABD: Soft, non-tender, no guarding or rebound. EXTR: No edema. INTEG: Petechiae in upper and lower extremities bilaterally. Bruises on arms, hands. Healing abrasion/contusion to left knee. Excoriations on upper arms bilaterally. NEURO: No apparent focal motor neuro deficit though he has parkinsonian tremor. Gait improved with walker. Lab-Past 14 Days, 35 Results 12/22/16 08:30: Absolute Band Neutrophils 0.0, Alanine Aminotransferase (ALT/SGPT) 46, Albumin 2.8L, Albumin/Globulin Ratio 0.736L, Alkaline Phosphatase 182H, Anion Gap 15.6H , Aspartate Amino Transf (AST/SGOT) 51H, BUN/Creatinine Ratio 18, Band Neutrophils % 0, Basophils # (Auto) , Basophils # (Manual) 0.0, Basophils % ( Manual) 0, Basophils (%) (Auto) , Blood Morphology Comment Normal, Blood Urea Nitrogen 13, Calcium Level 8.2L, Calcium/Ionized Calcium Ratio 3.7L, Calculated Osmolality 273L, Carbon Dioxide Level 23, Chloride Level 108, Creatinine 0.71L, Differential Total Cells Counted 100, Eosinophils # 0.2, Eosinophils # (Auto) , Eosinophils % (Manual) 1, Eosinophils (%) (Auto) , Estimat Glomerular Filtration Rate 133.5, Estimated GFR (Non- 110.3, Glucose Level 27#*L, Hematocrit 31.10L, Hemoglobin 9.8L, Lymphocytes # 1.4, Lymphocytes # ( Auto) , Lymphocytes % (Manual) 7L, Lymphocytes (%) (Auto) , Mean Corpuscular Hemoglobin 31.0, Mean Corpuscular Hemoglobin Concent 31.5, Mean Corpuscular Volume 98, Mean Platelet Volume 9.8H, Monocytes # 1.0, Monocytes # (Auto) , Monocytes % (Manual) 5, Monocytes (%) (Auto) , FI-Ayt-B-Type Natriuretic Peptide 429H, Neutrophils # 17.6, Neutrophils # (Auto) , Neutrophils (%) (Auto) , Platelet Count 482H, Potassium Level 4.0, Red Blood Count 3.16L, Red Cell Distribution Width 15.0, Segmented Neutrophils % 87H, Sodium Level 143, Total Bilirubin 0.3, Total Protein 6.6, White Blood Count 20.28H 12/22/16 08:50: Free Thyroxine (T4) Calculated 0.83, Phenytoin (Dilantin) Level 8.5L, Thyroid Stimulating Hormone (TSH) 4.84#H 12/22/16 17:55: Urine Bilirubin Negative, Urine Blood Negative, Urine Clarity Clear, Urine Collection Type Clean catch, Urine Color Yellow, Urine Glucose (UA) Negative, Urine Ketones Negative, Urine Leukocyte Esterase Negative, Urine Nitrite Negative, Urine Protein Negative, Urine Specific [place] 1.010, Urine Urobilinogen 0.2, Urine pH 6.5 12/23/16 05:02: Anion Gap 8.7, BUN/Creatinine Ratio 23H, Basophils # (Auto) 0.0, Basophils (%) ( Auto) 0, Blood Urea Nitrogen 15, Calcium Level 7.6L, Carbon Dioxide Level 27, Chloride Level 108, Creatinine 0.66L, Eosinophils # (Auto) 0.3, Eosinophils (%) (Auto) 3, Estimat Glomerular Filtration Rate 145.2, Estimated GFR (Non- 120.0, Glucose Level 89#, Hematocrit 24.70L, Hemoglobin 7.8L, Lymphocytes # (Auto) 2.3, Lymphocytes (%) (Auto) 25, Mean Corpuscular Hemoglobin 31.0, Mean Corpuscular Hemoglobin Concent 31.6, Mean Corpuscular Volume 98, Mean Platelet Volume 9.9H, Monocytes # (Auto) 1.0, Monocytes (%) ( Auto) 11, Neutrophils # (Auto) 5.5, Neutrophils (%) (Auto) 60, Platelet Count 282, Potassium Level 4.1, Red Blood Count 2.52L, Red Cell Distribution Width 14.9, Sodium Level 140, White Blood Count 9.18, Smear Scan Yes 12/24/16 05:35: Anion Gap 6.4, BUN/Creatinine Ratio 23H, Basophils # (Auto) 0.0, Basophils (%) ( Auto) 1, Blood Urea Nitrogen 14, Calcium Level 7.5L, Carbon Dioxide Level 29, Chloride Level 111H, Creatinine 0.61L, Eosinophils # (Auto) 0.4, Eosinophils (% ) (Auto) 5H, Estimat Glomerular Filtration Rate 159.1, Estimated GFR (Non- 131.5, Glucose Level 106, Hematocrit 22.70L, Hemoglobin 7.2L, Lymphocytes # (Auto) 1.9, Lymphocytes (%) (Auto) 27, Mean Corpuscular Hemoglobin 31.2, Mean Corpuscular Hemoglobin Concent 31.7, Mean Corpuscular Volume 98, Mean Platelet Volume 9.8H, Monocytes # (Auto) 0.8, Monocytes (%) ( Auto) 11, Neutrophils # (Auto) 4.1, Neutrophils (%) (Auto) 57, Platelet Count 243, Potassium Level 3.8, Red Blood Count 2.31L, Red Cell Distribution Width 14.9, Sodium Level 142, White Blood Count 7.17 12/24/16 15:25: Activated Partial Thromboplast Time 28.8, Prothromb Time International Ratio 1.1 , Prothrombin Time 11.8 12/24/16 21:36: Hematocrit 25.80L, Hemoglobin 8.2L 12/25/16 05:40: Basophils # (Auto) 0.0, Basophils (%) (Auto) 1, Eosinophils # (Auto) 0.4, Eosinophils (%) (Auto) 6H, Hematocrit 24.60L, Hemoglobin 7.9L, Lymphocytes # ( Auto) 2.0, Lymphocytes (%) (Auto) 31, Mean Corpuscular Hemoglobin 31.0, Mean Corpuscular Hemoglobin Concent 32.1, Mean Corpuscular Volume 97, Mean Platelet Volume 9.8H, Monocytes # (Auto) 0.6, Monocytes (%) (Auto) 9, Neutrophils # (Auto ) 3.5, Neutrophils (%) (Auto) 53, Platelet Count 232, Red Blood Count 2.55L, Red Cell Distribution Width 15.7H, White Blood Count 6.50, Smear Scan Yes 12/25/16 10:55: Stool Occult Blood Negative 12/25/16 16:10: Hematocrit 33.90L, Hemoglobin 10.8L 12/26/16 05:40: Hematocrit 28.10L, Hemoglobin 9.0L, Albumin 2.1#L, Anion Gap 10.0, Basophils # ( Auto) 0.0, Basophils (%) (Auto) 1, Blood Urea Nitrogen 11, Calcium Level 7.7L, Carbon Dioxide Level 24, Chloride Level 112H, Creatinine 0.56L, Eosinophils # ( Auto) 0.3, Eosinophils (%) (Auto) 6H, Estimat Glomerular Filtration Rate 175.6, Estimated GFR (Non- 145.1, Glucose Level 85, Lymphocytes # (Auto ) 1.4, Lymphocytes (%) (Auto) 24, Mean Corpuscular Hemoglobin 29.8, Mean Corpuscular Hemoglobin Concent 32.0, Mean Corpuscular Volume 93, Mean Platelet Volume 9.9H, Monocytes # (Auto) 0.6, Monocytes (%) (Auto) 10, Neutrophils # ( Auto) 3.5, Neutrophils (%) (Auto) 60, Phosphorus Level 2.7#, Platelet Count 211 , Potassium Level 3.6, Red Blood Count 3.02L, Red Cell Distribution Width 17.4H , Sodium Level 142, White Blood Count 5.80 12/26/16 19:06: Hematocrit 27.60L, Hemoglobin 8.8L 12/27/16 05:50: Basophils # (Auto) 0.0, Basophils (%) (Auto) 1, Eosinophils # (Auto) 0.3, Eosinophils (%) (Auto) 4, Hematocrit 29.00L, Hemoglobin 9.2L, Lymphocytes # ( Auto) 1.3, Lymphocytes (%) (Auto) 18L, Mean Corpuscular Hemoglobin 29.6, Mean Corpuscular Hemoglobin Concent 31.7, Mean Corpuscular Volume 93, Mean Platelet Volume 10.0H, Monocytes # (Auto) 0.8, Monocytes (%) (Auto) 10, Neutrophils # ( Auto) 4.9, Neutrophils (%) (Auto) 67, Platelet Count 251, Red Blood Count 3.11L , Red Cell Distribution Width 16.8H, White Blood Count 7.36 12/27/16 CT CHEST W PROCEDURE: CT chest with contrast only. TECHNIQUE: Multiple contiguous axial images were obtained through the chest after administration of intravenous contrast. INDICATION: Gastric carcinoma staging. AVAILABLE COMPARISONS: None. FINDINGS: The great vessels are negative. Axillary lymph nodes are negative. Supraclavicular and mediastinal lymph nodes are negative. The hilar lymph nodes are negative. Pathologically enlarged subcarinal lymph node region is present measuring 4.3 x 2.7 cm The thoracic esophagus is dilated. The wall of the thoracic esophagus is abnormally thickened beginning in the mid esophageal region just below the pathologically enlarged lymph nodes in the subcarinal region. This thickening extends inferiorly to the EG junction. A mass-like appearance is noted at the EG junction protruding into the gastric cardia region. The retrocrural lymph nodes are negative. The there may be an enlarged periesophageal lymph node at the EG junction versus a portion of the mass at the EG junction. Left gastric lymph nodes are visible which are not significantly enlarged. Images through the upper abdomen showed the stomach to be distended with decreased pneumatosis of the stomach wall compared to the prior examination. Small bilateral pleural effusions are present. Scattered calcified lung granulomas are present. No noncalcified nodules are identified. There is no osteolytic or osteoblastic lesion identified. IMPRESSION: 1. Dilated proximal esophagus with esophageal wall thickening and mass of the mid and distal esophagus consistent with neoplasm. 2. Subcarinal lymphadenopathy consistent with metastasis. PET/CT may be helpful for staging. 3. Bilateral pleural effusions. 4. Decreased gastric pneumatosis when compared to the prior study. 12/22/16 ACUTE ABD SERIES Indication: Vomiting PA chest, supine and upright abdominal images were obtained. Bowel gas pattern is normal. There is no intraperitoneal free air. Lungs are clear. There are no pathologic masses or calcifications. Impression: Negative abdomen series. REFERENCE 12/08/16 CT ABDOMEN/PELVIS W PROCEDURE: CT abdomen and pelvis with contrast. TECHNIQUE: Multiple contiguous axial images were obtained through the abdomen and pelvis after administration of intravenous contrast. INDICATION: Ileus, nausea, and vomiting. There is abnormal thickening of the quinonez of the greater and lesser curvature of the stomach at the proximal body, fundus, and cardia. The segments of abnormal thickened gastric wall showed mural air and emphysematous gastritis. The draining venous system about the lesser and greater curvature shows intraluminal venous gas which extends into the liver and into the peripheral anti-dependent portal venous branches. The celiac artery , its primary branches, the superior mesenteric, and the inferior mesenteric arteries were all widely patent. The distal gastric body and its antrum thin walled, non thickened, without mural air. The duodenum, the small and the large bowel quinonez all non thickened. There were no other areas of enteric mural gas. There was no pneumatosis intestinalis. There is some gas in the gastric quinonez dissecting through the cardia and into the distal thoracic esophagus. The distal thoracic esophagus irregular, nodular, and thickened with its single wall thickness of 1.6 cm and that structure measuring short-axis outer wall/ outer wall diameter of 3.0 cm. I am told that the patient has been vomiting and retching. It is conceivable that the esophageal thickening is from a tear and some intramural hematoma and that the retching itself accounts for gastric emphysema. Other etiologies such as emphysematous gastritis, however, could not be excluded. Again this would be a very unusual location for arterial insufficiency accounting for ischemia, and we note no arterial obstruction. There is no free intraperitoneal air or findings of a transmural perforation. Aside from the portal venous air, the liver appeared otherwise unremarkable. The spleen is negative. There is a benign fatty nodule in the left adrenal gland , 1.8 cm. The pancreas appeared normal. There are bilateral renal parapelvic cysts greater left without hydronephrosis. The kidneys nonacute. There is no ascites, abscess, hematoma, or loculated fluid collection. IMPRESSION: Thickening of the quinonez of the proximal stomach along its greater and lesser curvatures through the cardia and into the distal esophagus. The areas of abnormal gastric wall thickening are accompanied by pneumatosis and gastric emphysema. There is heterogeneous thickening and irregular appearance of the distal thoracic esophagus. A unifying consideration in the history provided would raise the question of esophageal mucosal tear and intramural hemorrhage owing to the vomiting and the vomiting-inducing gastric emphysema with the venous drainage of this air accounting for the intrahepatic portal venous air. Infectious etiology such as emphysematous gastritis, however, could not be excluded; and given the abnormal appearance of the distal thoracic esophagus, its neoplastic infiltration cannot be excluded. Endoscopic correlation recommended. No free air or findings of a transmural perforation. The distal stomach, the duodenum, the small and the large bowel were unremarkable aside from a suggestion of mild regional small bowel ileus in the upper abdomen. Benign incidental renal parapelvic cyst. No biliary dilatation. No ascites. No arterial obstruction demonstrated. INDICATION: Abdominal pain Upper GI study and small bowel performed with Omnipaque contrast. Comparison made to CT of earlier today. The esophagus shows moderate dilatation in its proximal to midportion with diffuse irregularity and narrowing of the distal third of the esophagus. There is no extravasation of contrast. There is marked diffuse irregularity of the gastric wall compatible with the gastric wall thickening and pneumatosis visualized on the CT study. The duodenal bulb and sweep are unremarkable. Small bowel showed normal caliber throughout with normal small bowel fold pattern. Contrast reaches the right colon after about one hour and 20 minutes. There is no small bowel obstruction. IMPRESSION: There is diffuse thickening and irregularity of the lower esophagus and of the stomach, corresponding to the CT findings earlier today. There is no extravasation of contrast or focal ulcer. The differential diagnosis for pneumatosis in the stomach and distal esophagus would include infectious causes, ischemic causes, or caustic ingestion. There is slow motility of the esophagus due to the lower esophageal narrowing. Further evaluation with endoscopy is recommended as clinically warranted. The small bowel appeared unremarkable. ASSESSMENT Chris Velázquez is a 66 year old male admitted from ED 12/22 where he presented from longterm with altered mental status and nausea/vomiting. He was found to have profound hypoglycemia on admit that improved with glucose supplement. However, he was also found to have worsening anemia and emesis worrisome for upper GI bleed. He has numerous chronic problems and recently had gastric pneumatosis and biliary pneumatosis that necessitated transfer to [facility]. However , no surgery or endoscopic interventions were reportedly done there. He did have EGD 12/26 which revealed gastric and esophageal cancer. Biopsy was not obtained because sites were still oozing blood. PLAN * Upper GI Bleed: Has history of GI bleed and was most recently evaluated in ED 12/08/2016 by surgery for gastric pneumatosis with protal venous air in addition to concern for GI bleed. He had been transferred to [facility] for more advanced care. Ultimately did not have any intervention but he recovered somewhat and was discharged to [facility] for skilled care. Prior to this admit, likely had hematochezia again. This was not initially addressed on this admit. Stool negative for occult blood. Coag profile reassuring. Gave pantoprazole bolus and drip. Consulted surgery for upper endoscopy, performed 12/26 which showed esophageal and gastric cancer. Records from [facility] admission placed on hard chart. * Gastroesophageal Cancer: Specific type unknown. EGD 12/26 but did not biopsy because still actively oozing blood. CT chest from this admission as noted showing subcarinal node enlargement consistent with metastasis. Per surgery, no recommendation for intervention at this time. Refer to oncology 01/01. Will need biopsy, PET. * Acute Blood Loss Anemia: Hgb julio 7.2 12/24. Transfused 12/24 and 12/25 for Hgb < 8. Monitor. * Hypoglycemia: Resolved. Glucose 27 on admit, improved with IVF. Held glimepiride. * Nausea/Vomiting: Resolved. Ondansetron, promethazine. * Deconditioning: PT eval and treat. * F/E/N: Surgical soft diet. * Prophylaxis: SCDs * Code Status: Full code. Discussed with patient 12/24. * Dispo: Inpatient. Discharge deferred. High risk of readmission and favor getting oncology consult as well as observing closely for signs of further bleeding. CHRONIC ISSUES * Parkinson's disease: Carbidopa/levodopa * HLD: Atorvastatin * Seizure Disorder: Levetiracetam, phenytoin, clonazepam * Diabetes Mellitus Type II: Hold glimepiride. Insulin sliding scale. * CHF: Type unknown. Not currently exacerbated. No prior echo on file. Hold carvedilol. * CAD: Hold clopidogrel. * Depression: Sertraline * Anxiety: Clonazepam * HTN: Hold losartan/HCTZ. * Constipation: Hold bowel regimen. * SARI: Not on therapy at home. Observe. HECTOR WEEKS MD Dec 27, 2016 17:21
--- NOTE | 2016-12-27 18:45 | NUR ---
Uneventful shift. Skin warm, dry, intact. Resprs nonlabored, even on RA. SL intact. Denies needs.
[2016-12-27 20:00] VITALS: BP 124/58
[2016-12-27] MEDS: ATORVASTATIN 40 MG (LIPITOR) TABLET PO SCH (20:07)
--- NOTE | 2016-12-27 21:30 | NUR ---
Accucheck is 125 this evening; sliding scale insulin not required. Pt. watching tv; no current requests.
[2016-12-28] VITALS: BP 119/61
--- NOTE | 2016-12-28 01:30 | NUR ---
Pt. encouraged to not scratch arms and hands; bilateral upper and lower extremities noted to be scratched and red with small resolving/open sores upon admission. Pt. relates all his environmental allergies to this nurse; none of which are in the room. Warm wash cloths and soothing lotion provided.
[2016-12-28 04:00] VITALS: BP 125/68
[2016-12-28] MEDS: LEVOTHYROXINE 125 MCG (LEVOTHROID) TABLET PO SCH (06:38)
[2016-12-28] MEDS: PANTOPRAZOLE 40 MG (PROTONIX) TAB PO SCH (06:38)
--- NOTE | 2016-12-28 06:40 | NUR ---
Pt. takes PO meds without difficulty. Accucheck this morning is 101; sliding scale insulin not required. Pt. noted to be itching again; requests shower this morning; "Maybe that will help!" Bed alarm on for pt. safety; pt. questions reason for activation; safety measures explained.
[2016-12-28] MEDS: INSULIN LISPRO 1 UNIT/0.01 ML (HUMALOG) DOSE SC SCH ×4 (07:26→21:00)
[2016-12-28] MEDS: SERTRALINE 100 MG (ZOLOFT) TABLET PO SCH (08:54)
[2016-12-28] MEDS: clonazePAM 0.5 MG (KlonoPIN) TAB PO SCH ×3 (08:54→17:23)
[2016-12-28] MEDS: CARVEDILOL 6.25 MG (COREG) TAB PO SCH ×2 (08:54→17:19)
[2016-12-28] MEDS: LEVODOPA PO SCH ×2 (08:55→20:30)
[2016-12-28] MEDS: CARBIDOPA PO SCH ×2 (08:55→20:30)
[2016-12-28] MEDS: PHENYTOIN ER 100 MG (DILANTIN) CAPSULE PO SCH ×2 (08:55→20:30)
[2016-12-28] MEDS: LEVETIRACETAM 500 MG (KEPPRA) TABLET PO SCH ×3 (08:55→17:19)
[2016-12-28 09:04] VITALS: BP 129/64
--- NOTE | 2016-12-28 10:34 | NUR ---
Pt sitting up in chair at this time, c/o back itching. States "it's from that CAT scan yesterday". Rubbed pt's back with warm washcloth and applied lotion to back. Medial back appears red from pt scratching. Skin warm, dry, intact. Resprs nonlabored, even on RA. SL intact. Denies needs. Will continue to monitor.
[2016-12-28 12:12] VITALS: BP 119/62
[2016-12-28] MEDS: ACETAMINOPHEN 325 MG TAB (TYLENOL) PO PRN (13:14)
[2016-12-28 15:57] VITALS: BP 122/65
--- NOTE | 2016-12-28 17:03 | Physical Therapy Evaluation(E) ---
Plan of Care STG: Plan-Treatment Functional: Amb Safe w/ AD on level STG Time Frame: 4 Days LTG Time Frame: 7 Days Goals Discussed/Agreed: Yes Plan: Endurance, Gait & Transfer Training, Strengthening Discharge Recommendations: Caregiver support Aware of Dx and Prognosis: Yes Aware of Risk & Benefit: Yes To be Seen: Daily Saturday-Saturday Initial Evaluation Service Date/Time 12/28/16, 16:00 Primary Diagnosis: (1) MUSCLE WEAKNESS (GENERALIZED) ICD Code: 728.87 Treatment Diagnosis: (1) MUSCLE WEAKNESS (GENERALIZED) ICD Code: 728.87 Start of Care Date: Dec 28, 2016 Resuscitation Status: Full Code Precaution/Isolation: Standard Precautions Fall Level: High Risk 51 or greater Initial Assessment Reason for Rehab: Increase Mobility, Increase Strength, Increase Balance, Increase Transfers Medical History: DM, Depression, Hypothyroidism, Parkinsons Rehabilitation Potential: Good Rehab Potential Based on Patient willing to participate with therapy. Assistive Device: FWW Distance Walked in Feet 300 feet. Assist: Supervision Required Gait Description: Wide Based Gait Gait Limitations: Fatigue, Decreased Balance Assessment/Goals Initial Transfer Assessment Sit-Stand from Bed: Minimal Assistance Stand-Sit: Contact Guard Assist Pivot Transfers: Supervision or setup Ambulation: Supervision or setup Distance Walked in Feet 300 feet. Transfer Short Term Goals Rolling: Modified [place] Sit-Supine: Modified [place] Sitting Edge of Bed: Modified [place] Supine-Sit: Modified [place] Sit-Stand from bed: Modified [place] Stand-Sit: Modified [place] Pivot Transfer: Modified [place] Ambulation: Modified [place] Distance to Walk in Feet 600 feet. Transfer Continuous [employer] Goals Rolling: Complete [place] Sit-Supine: Complete [place] Sitting Edge of Bed: Complete [place] Supine-Sit: Complete [place] Sit-Stand from bed: Complete [place] Stand-Sit: Complete [place] Pivot Transfer: Complete [place] Ambulation: Complete [place] Distance to Walk in Feet 1000 feet Coding Time In: 1600 Time Out: 1615 Total Minutes: 15 Charges: [id number] Eval< 20 min Shaheen Elder PT Dec 28, 2016 17:03
[2016-12-28] MEDS: ONDANSETRON 4 MG (ZOFRAN) ORAL DISSOLVE TAB PO PRN ×2 (17:18→23:25)
--- NOTE | 2016-12-28 17:20 | NUR ---
PRN Zofran given at this time by Dante Haider RN for c/o nausea. Denies other needs.
--- NOTE | 2016-12-28 18:22 | Progress Note (E) ---
Progress Note SUBJECTIVE No issues overnight. Participates with PT. Discharge deferred because of benefit of oncology consult which isn't available until Saturday. He remains pleasant and interactive. Vitals stable. No further bleeding noted. OBJECTIVE Vital Signs Date Time Temp Pulse Resp B/P Pulse Ox O2 Delivery O2 Flow Rate FiO2 12/28/16 15:57 97.2 64 16 122/65 97 Room air 12/24/16 15:53 0.00 I & O 12/27/16 12/28/16 Cumulative From/Thru 19:00 07:00 12/22/16 08:12 - 12/28/16 06:00 Intake Total 925 ml 200 ml 51704 ml Output Total 700 ml 1750 ml 60357 ml Balance 225 ml -1550 ml 216 ml GEN: Awake, interactive, oriented. NAD at present. Feels stronger overall. HEENT: EOMI, clear sclerae, somewhat dry oral mucosa, poor dentition. CV: Regular without significant murmur. PULM: CTA B with mildly diminished bases. No R/R/W. ABD: Soft, non-tender, no guarding or rebound. EXTR: No edema. INTEG: Petechiae in upper and lower extremities bilaterally, stable. Bruises on arms, hands. Healing abrasion/contusion to left knee. Excoriations on upper arms bilaterally. NEURO: No apparent focal motor neuro deficit though he has parkinsonian tremor. Gait improved with walker. Lab-Past 14 Days, 35 Results 12/22/16 08:30: Absolute Band Neutrophils 0.0, Alanine Aminotransferase (ALT/SGPT) 46, Albumin 2.8L, Albumin/Globulin Ratio 0.736L, Alkaline Phosphatase 182H, Anion Gap 15.6H , Aspartate Amino Transf (AST/SGOT) 51H, BUN/Creatinine Ratio 18, Band Neutrophils % 0, Basophils # (Auto) , Basophils # (Manual) 0.0, Basophils % ( Manual) 0, Basophils (%) (Auto) , Blood Morphology Comment Normal, Blood Urea Nitrogen 13, Calcium Level 8.2L, Calcium/Ionized Calcium Ratio 3.7L, Calculated Osmolality 273L, Carbon Dioxide Level 23, Chloride Level 108, Creatinine 0.71L, Differential Total Cells Counted 100, Eosinophils # 0.2, Eosinophils # (Auto) , Eosinophils % (Manual) 1, Eosinophils (%) (Auto) , Estimat Glomerular Filtration Rate 133.5, Estimated GFR (Non- 110.3, Glucose Level 27#*L, Hematocrit 31.10L, Hemoglobin 9.8L, Lymphocytes # 1.4, Lymphocytes # ( Auto) , Lymphocytes % (Manual) 7L, Lymphocytes (%) (Auto) , Mean Corpuscular Hemoglobin 31.0, Mean Corpuscular Hemoglobin Concent 31.5, Mean Corpuscular Volume 98, Mean Platelet Volume 9.8H, Monocytes # 1.0, Monocytes # (Auto) , Monocytes % (Manual) 5, Monocytes (%) (Auto) , BR-Bps-W-Type Natriuretic Peptide 429H, Neutrophils # 17.6, Neutrophils # (Auto) , Neutrophils (%) (Auto) , Platelet Count 482H, Potassium Level 4.0, Red Blood Count 3.16L, Red Cell Distribution Width 15.0, Segmented Neutrophils % 87H, Sodium Level 143, Total Bilirubin 0.3, Total Protein 6.6, White Blood Count 20.28H 12/22/16 08:50: Free Thyroxine (T4) Calculated 0.83, Phenytoin (Dilantin) Level 8.5L, Thyroid Stimulating Hormone (TSH) 4.84#H 12/22/16 17:55: Urine Bilirubin Negative, Urine Blood Negative, Urine Clarity Clear, Urine Collection Type Clean catch, Urine Color Yellow, Urine Glucose (UA) Negative, Urine Ketones Negative, Urine Leukocyte Esterase Negative, Urine Nitrite Negative, Urine Protein Negative, Urine Specific Amasa 1.010, Urine Urobilinogen 0.2, Urine pH 6.5 12/23/16 05:02: Anion Gap 8.7, BUN/Creatinine Ratio 23H, Basophils # (Auto) 0.0, Basophils (%) ( Auto) 0, Blood Urea Nitrogen 15, Calcium Level 7.6L, Carbon Dioxide Level 27, Chloride Level 108, Creatinine 0.66L, Eosinophils # (Auto) 0.3, Eosinophils (%) (Auto) 3, Estimat Glomerular Filtration Rate 145.2, Estimated GFR (Non- 120.0, Glucose Level 89#, Hematocrit 24.70L, Hemoglobin 7.8L, Lymphocytes # (Auto) 2.3, Lymphocytes (%) (Auto) 25, Mean Corpuscular Hemoglobin 31.0, Mean Corpuscular Hemoglobin Concent 31.6, Mean Corpuscular Volume 98, Mean Platelet Volume 9.9H, Monocytes # (Auto) 1.0, Monocytes (%) ( Auto) 11, Neutrophils # (Auto) 5.5, Neutrophils (%) (Auto) 60, Platelet Count 282, Potassium Level 4.1, Red Blood Count 2.52L, Red Cell Distribution Width 14.9, Sodium Level 140, White Blood Count 9.18, Smear Scan Yes 12/24/16 05:35: Anion Gap 6.4, BUN/Creatinine Ratio 23H, Basophils # (Auto) 0.0, Basophils (%) ( Auto) 1, Blood Urea Nitrogen 14, Calcium Level 7.5L, Carbon Dioxide Level 29, Chloride Level 111H, Creatinine 0.61L, Eosinophils # (Auto) 0.4, Eosinophils (% ) (Auto) 5H, Estimat Glomerular Filtration Rate 159.1, Estimated GFR (Non- 131.5, Glucose Level 106, Hematocrit 22.70L, Hemoglobin 7.2L, Lymphocytes # (Auto) 1.9, Lymphocytes (%) (Auto) 27, Mean Corpuscular Hemoglobin 31.2, Mean Corpuscular Hemoglobin Concent 31.7, Mean Corpuscular Volume 98, Mean Platelet Volume 9.8H, Monocytes # (Auto) 0.8, Monocytes (%) ( Auto) 11, Neutrophils # (Auto) 4.1, Neutrophils (%) (Auto) 57, Platelet Count 243, Potassium Level 3.8, Red Blood Count 2.31L, Red Cell Distribution Width 14.9, Sodium Level 142, White Blood Count 7.17 12/24/16 15:25: Activated Partial Thromboplast Time 28.8, Prothromb Time International Ratio 1.1 , Prothrombin Time 11.8 12/24/16 21:36: Hematocrit 25.80L, Hemoglobin 8.2L 12/25/16 05:40: Basophils # (Auto) 0.0, Basophils (%) (Auto) 1, Eosinophils # (Auto) 0.4, Eosinophils (%) (Auto) 6H, Hematocrit 24.60L, Hemoglobin 7.9L, Lymphocytes # ( Auto) 2.0, Lymphocytes (%) (Auto) 31, Mean Corpuscular Hemoglobin 31.0, Mean Corpuscular Hemoglobin Concent 32.1, Mean Corpuscular Volume 97, Mean Platelet Volume 9.8H, Monocytes # (Auto) 0.6, Monocytes (%) (Auto) 9, Neutrophils # (Auto ) 3.5, Neutrophils (%) (Auto) 53, Platelet Count 232, Red Blood Count 2.55L, Red Cell Distribution Width 15.7H, White Blood Count 6.50, Smear Scan Yes 12/25/16 10:55: Stool Occult Blood Negative 12/25/16 16:10: Hematocrit 33.90L, Hemoglobin 10.8L 12/26/16 05:40: Hematocrit 28.10L, Hemoglobin 9.0L, Albumin 2.1#L, Anion Gap 10.0, Basophils # ( Auto) 0.0, Basophils (%) (Auto) 1, Blood Urea Nitrogen 11, Calcium Level 7.7L, Carbon Dioxide Level 24, Chloride Level 112H, Creatinine 0.56L, Eosinophils # ( Auto) 0.3, Eosinophils (%) (Auto) 6H, Estimat Glomerular Filtration Rate 175.6, Estimated GFR (Non- 145.1, Glucose Level 85, Lymphocytes # (Auto ) 1.4, Lymphocytes (%) (Auto) 24, Mean Corpuscular Hemoglobin 29.8, Mean Corpuscular Hemoglobin Concent 32.0, Mean Corpuscular Volume 93, Mean Platelet Volume 9.9H, Monocytes # (Auto) 0.6, Monocytes (%) (Auto) 10, Neutrophils # ( Auto) 3.5, Neutrophils (%) (Auto) 60, Phosphorus Level 2.7#, Platelet Count 211 , Potassium Level 3.6, Red Blood Count 3.02L, Red Cell Distribution Width 17.4H , Sodium Level 142, White Blood Count 5.80 12/26/16 19:06: Hematocrit 27.60L, Hemoglobin 8.8L 12/27/16 05:50: Basophils # (Auto) 0.0, Basophils (%) (Auto) 1, Eosinophils # (Auto) 0.3, Eosinophils (%) (Auto) 4, Hematocrit 29.00L, Hemoglobin 9.2L, Lymphocytes # ( Auto) 1.3, Lymphocytes (%) (Auto) 18L, Mean Corpuscular Hemoglobin 29.6, Mean Corpuscular Hemoglobin Concent 31.7, Mean Corpuscular Volume 93, Mean Platelet Volume 10.0H, Monocytes # (Auto) 0.8, Monocytes (%) (Auto) 10, Neutrophils # ( Auto) 4.9, Neutrophils (%) (Auto) 67, Platelet Count 251, Red Blood Count 3.11L , Red Cell Distribution Width 16.8H, White Blood Count 7.36 12/27/16 CT CHEST W PROCEDURE: CT chest with contrast only. TECHNIQUE: Multiple contiguous axial images were obtained through the chest after administration of intravenous contrast. INDICATION: Gastric carcinoma staging. AVAILABLE COMPARISONS: None. FINDINGS: The great vessels are negative. Axillary lymph nodes are negative. Supraclavicular and mediastinal lymph nodes are negative. The hilar lymph nodes are negative. Pathologically enlarged subcarinal lymph node region is present measuring 4.3 x 2.7 cm The thoracic esophagus is dilated. The wall of the thoracic esophagus is abnormally thickened beginning in the mid esophageal region just below the pathologically enlarged lymph nodes in the subcarinal region. This thickening extends inferiorly to the EG junction. A mass-like appearance is noted at the EG junction protruding into the gastric cardia region. The retrocrural lymph nodes are negative. The there may be an enlarged periesophageal lymph node at the EG junction versus a portion of the mass at the EG junction. Left gastric lymph nodes are visible which are not significantly enlarged. Images through the upper abdomen showed the stomach to be distended with decreased pneumatosis of the stomach wall compared to the prior examination. Small bilateral pleural effusions are present. Scattered calcified lung granulomas are present. No noncalcified nodules are identified. There is no osteolytic or osteoblastic lesion identified. IMPRESSION: 1. Dilated proximal esophagus with esophageal wall thickening and mass of the mid and distal esophagus consistent with neoplasm. 2. Subcarinal lymphadenopathy consistent with metastasis. PET/CT may be helpful for staging. 3. Bilateral pleural effusions. 4. Decreased gastric pneumatosis when compared to the prior study. 12/22/16 ACUTE ABD SERIES Indication: Vomiting PA chest, supine and upright abdominal images were obtained. Bowel gas pattern is normal. There is no intraperitoneal free air. Lungs are clear. There are no pathologic masses or calcifications. Impression: Negative abdomen series. REFERENCE 12/08/16 CT ABDOMEN/PELVIS W PROCEDURE: CT abdomen and pelvis with contrast. TECHNIQUE: Multiple contiguous axial images were obtained through the abdomen and pelvis after administration of intravenous contrast. INDICATION: Ileus, nausea, and vomiting. There is abnormal thickening of the quinonez of the greater and lesser curvature of the stomach at the proximal body, fundus, and cardia. The segments of abnormal thickened gastric wall showed mural air and emphysematous gastritis. The draining venous system about the lesser and greater curvature shows intraluminal venous gas which extends into the liver and into the peripheral anti-dependent portal venous branches. The celiac artery , its primary branches, the superior mesenteric, and the inferior mesenteric arteries were all widely patent. The distal gastric body and its antrum thin walled, non thickened, without mural air. The duodenum, the small and the large bowel quinonez all non thickened. There were no other areas of enteric mural gas. There was no pneumatosis intestinalis. There is some gas in the gastric quinonez dissecting through the cardia and into the distal thoracic esophagus. The distal thoracic esophagus irregular, nodular, and thickened with its single wall thickness of 1.6 cm and that structure measuring short-axis outer wall/ outer wall diameter of 3.0 cm. I am told that the patient has been vomiting and retching. It is conceivable that the esophageal thickening is from a tear and some intramural hematoma and that the retching itself accounts for gastric emphysema. Other etiologies such as emphysematous gastritis, however, could not be excluded. Again this would be a very unusual location for arterial insufficiency accounting for ischemia, and we note no arterial obstruction. There is no free intraperitoneal air or findings of a transmural perforation. Aside from the portal venous air, the liver appeared otherwise unremarkable. The spleen is negative. There is a benign fatty nodule in the left adrenal gland , 1.8 cm. The pancreas appeared normal. There are bilateral renal parapelvic cysts greater left without hydronephrosis. The kidneys nonacute. There is no ascites, abscess, hematoma, or loculated fluid collection. IMPRESSION: Thickening of the quinonez of the proximal stomach along its greater and lesser curvatures through the cardia and into the distal esophagus. The areas of abnormal gastric wall thickening are accompanied by pneumatosis and gastric emphysema. There is heterogeneous thickening and irregular appearance of the distal thoracic esophagus. A unifying consideration in the history provided would raise the question of esophageal mucosal tear and intramural hemorrhage owing to the vomiting and the vomiting-inducing gastric emphysema with the venous drainage of this air accounting for the intrahepatic portal venous air. Infectious etiology such as emphysematous gastritis, however, could not be excluded; and given the abnormal appearance of the distal thoracic esophagus, its neoplastic infiltration cannot be excluded. Endoscopic correlation recommended. No free air or findings of a transmural perforation. The distal stomach, the duodenum, the small and the large bowel were unremarkable aside from a suggestion of mild regional small bowel ileus in the upper abdomen. Benign incidental renal parapelvic cyst. No biliary dilatation. No ascites. No arterial obstruction demonstrated. INDICATION: Abdominal pain Upper GI study and small bowel performed with Omnipaque contrast. Comparison made to CT of earlier today. The esophagus shows moderate dilatation in its proximal to midportion with diffuse irregularity and narrowing of the distal third of the esophagus. There is no extravasation of contrast. There is marked diffuse irregularity of the gastric wall compatible with the gastric wall thickening and pneumatosis visualized on the CT study. The duodenal bulb and sweep are unremarkable. Small bowel showed normal caliber throughout with normal small bowel fold pattern. Contrast reaches the right colon after about one hour and 20 minutes. There is no small bowel obstruction. IMPRESSION: There is diffuse thickening and irregularity of the lower esophagus and of the stomach, corresponding to the CT findings earlier today. There is no extravasation of contrast or focal ulcer. The differential diagnosis for pneumatosis in the stomach and distal esophagus would include infectious causes, ischemic causes, or caustic ingestion. There is slow motility of the esophagus due to the lower esophageal narrowing. Further evaluation with endoscopy is recommended as clinically warranted. The small bowel appeared unremarkable. ASSESSMENT Chris Velázquez is a 66 year old male admitted from ED 12/22 where he presented from longterm with altered mental status and nausea/vomiting. He was found to have profound hypoglycemia on admit that improved with glucose supplement. However, he was also found to have worsening anemia and emesis worrisome for upper GI bleed. He has numerous chronic problems and recently had gastric pneumatosis and biliary pneumatosis that necessitated transfer to [facility]. However , no surgery or endoscopic interventions were reportedly done there. He did have EGD 12/26 which revealed gastric and esophageal cancer. Biopsy was not obtained because sites were still oozing blood. PLAN * Upper GI Bleed: Has history of GI bleed and was most recently evaluated in ED 12/08/2016 by surgery for gastric pneumatosis with protal venous air in addition to concern for GI bleed. He had been transferred to [facility] for more advanced care. Ultimately did not have any intervention but he recovered somewhat and was discharged to [facility] for skilled care. Prior to this admit, likely had hematochezia again. This was not initially addressed on this admit. Stool negative for occult blood. Coag profile reassuring. Gave pantoprazole bolus and drip. Consulted surgery for upper endoscopy, performed 12/26 which showed esophageal and gastric cancer. Added sucralfate 12/28 though his bleeding was from cancer lesions, not mucosal ulcers. Records from [facility] admission placed on hard chart. * Gastroesophageal Cancer: Specific type unknown. EGD 12/26 but did not biopsy because still actively oozing blood. CT chest from this admission as noted showing subcarinal node enlargement consistent with metastasis. Per surgery, no recommendation for intervention at this time. Refer to oncology 01/01. Will need biopsy, PET. * Acute Blood Loss Anemia: Hgb julio 7.2 12/24. Transfused 12/24 and 12/25 for Hgb < 8. Monitor. * Hypoglycemia: Resolved. Glucose 27 on admit, improved with IVF. Held glimepiride. * Nausea/Vomiting: Resolved. Ondansetron, promethazine. * Deconditioning: PT eval and treat. * F/E/N: Surgical soft diet. * Prophylaxis: SCDs * Code Status: Full code. Discussed with patient 12/24. * Dispo: Inpatient. Discharge deferred pending oncology consult which isn't available until Saturday. High risk of readmission and favor getting oncology consult as well as observing closely for signs of further bleeding. CHRONIC ISSUES * Parkinson's disease: Carbidopa/levodopa * HLD: Atorvastatin * Seizure Disorder: Levetiracetam, phenytoin, clonazepam * Diabetes Mellitus Type II: Hold glimepiride. Insulin sliding scale. * CHF: Type unknown. Not currently exacerbated. No prior echo on file. Hold carvedilol. * CAD: Hold clopidogrel. * Depression: Sertraline * Anxiety: Clonazepam * HTN: Hold losartan/HCTZ. * Constipation: Hold bowel regimen. * SARI: Not on therapy at home. Observe. HECTOR WEEKS MD Dec 28, 2016 18:22
--- NOTE | 2016-12-28 18:45 | NUR ---
Pt sitting up in chair. Skin warm, dry, intact. Resprs nonlabored, even on RA. SLx2 intact. One episode of vomit after dinner per [employer]. Pt denies other needs.
[2016-12-28 19:22] VITALS: BP 117/63
--- NOTE | 2016-12-28 19:55 | NUR ---
Pt. scratching forearms; cool washcloth provided. Pre-existing resolving scabs now bleeding slightly; gauze applied to right forearm and secured with tape. Pt. encouraged to allow skin to 'rest'; this nurse attempts to change focus of activity. Pt. is very conversational.
[2016-12-28] MEDS: SUCRALFATE 1 GM (CARAFATE) TAB PO SCH (20:30)
[2016-12-28] MEDS: ATORVASTATIN 40 MG (LIPITOR) TABLET PO SCH (20:30)
--- NOTE | 2016-12-28 21:00 | NUR ---
Accucheck is 114 this evening; sliding scale insulin not required. Pt. takes PO meds without difficulty.
--- NOTE | 2016-12-28 23:25 | NUR ---
Zofran Oral Dissolve 4 mg given to pt. for nausea. Pt. is 'spitting' into blue emesis bag; "I'm coughing up blood!" No blood noted upon inspection of bag contents. Pt. watching tv and scratching stomach, currently. Call light and H2O within reach.
[2016-12-29 00:01] VITALS: BP 122/69
[2016-12-29] MEDS: ACETAMINOPHEN 325 MG TAB (TYLENOL) PO PRN (03:00)
--- NOTE | 2016-12-29 03:00 | NUR ---
Tylenol 650 mg PO given for skin discomfort; itching. Pt. appears preoccupied with scratching/picking at skin. Cool cloth and lotion applied. Much encouragement given to attempt to rest.
[2016-12-29 04:08] VITALS: BP 112/60
[2016-12-29] MEDS: SUCRALFATE 1 GM (CARAFATE) TAB PO SCH ×4 (06:04→21:53)
[2016-12-29] MEDS: LEVOTHYROXINE 125 MCG (LEVOTHROID) TABLET PO SCH (06:04)
[2016-12-29] MEDS: PANTOPRAZOLE 40 MG (PROTONIX) TAB PO SCH (06:04)
--- NOTE | 2016-12-29 06:05 | NUR ---
Accucheck this morning is 115; sliding scale insulin not required. Pt. appears calmer; itching is becoming less of a problem; pt. remains very conversational.
[2016-12-29 06:22] LABS: BASOPHILS % (AUTO) 0 % (0-2); EOSINOPHILS # (AUTO) 0.8 10^3uL; EOSINOPHILS % (AUTO) 11 % (0-4); LYMPHOCYTES # (AUTO) 1.8 X10^3; MEAN CORPUSCULAR HEMOGLOBIN 29.3 PG (26.0-34.0); MEAN CORPUSCULAR VOLUME 95 FL (80-100); MONOCYTES % (AUTO) 13 % (3-11); NEUTROPHILS # (AUTO) 3.9 X10^3; NEUTROPHILS % (AUTO) 52 % (51-67); PLATELET COUNT 227 10^3uL (150-450); WHITE BLOOD COUNT 7.43 10^3uL (4.0-11.0)
[2016-12-29 07:00] LABS: ALBUMIN 2.1 g/dL (3.4-5.0); ANION GAP 9.6 MEQ/L (3-15)
[2016-12-29] MEDS: INSULIN LISPRO 1 UNIT/0.01 ML (HUMALOG) DOSE SC SCH ×4 (07:30→21:00)
[2016-12-29 07:56] VITALS: BP 125/59
[2016-12-29] MEDS: LEVETIRACETAM 500 MG (KEPPRA) TABLET PO SCH ×3 (08:34→17:57)
[2016-12-29] MEDS: PHENYTOIN ER 100 MG (DILANTIN) CAPSULE PO SCH ×2 (08:35→21:53)
[2016-12-29] MEDS: CARVEDILOL 6.25 MG (COREG) TAB PO SCH ×2 (08:35→17:58)
[2016-12-29] MEDS: LEVODOPA PO SCH ×2 (08:35→21:54)
[2016-12-29] MEDS: SERTRALINE 100 MG (ZOLOFT) TABLET PO SCH (08:35)
[2016-12-29] MEDS: CARBIDOPA PO SCH ×2 (08:35→21:54)
[2016-12-29] MEDS: clonazePAM 0.5 MG (KlonoPIN) TAB PO SCH ×3 (08:51→17:58)
[2016-12-29 11:59] VITALS: BP 125/65
[2016-12-29 15:50] VITALS: BP 110/56
--- NOTE | 2016-12-29 17:12 | Progress Note (E) ---
Progress Note SUBJECTIVE Hgb stable since EGD, now 9.1. Started iron supplement because of GI bleed. Staff report he remains very unsteady on feet. Participates well with therapy. Pleasant and interactive. Remains inpatient pending oncologist referral. Alternative plan is that he may be stable enough to return to [place] tomorrow without outpatient referral to oncology. On exam, alert and interactive. He had a small emesis this AM that had some blood tinge to it. Discussed findings and plan of care. Discussed concern about risk for readmission but he feels he can go back to [place] and is willing to do outpatient follow-up. OBJECTIVE Vital Signs Date Time Temp Pulse Resp B/P Pulse Ox O2 Delivery O2 Flow Rate FiO2 12/29/16 15:50 97.2 67 18 110/56 100 Room air 12/29/16 07:56 0.00 I & O 12/28/16 12/29/16 Cumulative From/Thru 19:00 07:00 12/22/16 08:12 - 12/29/16 05:54 Intake Total 815 ml 894 ml 79348 ml Output Total 500 ml 1125 ml 15034 ml Balance 315 ml -231 ml 300 ml GEN: Awake, interactive, oriented. NAD at present. HEENT: EOMI, clear sclerae, somewhat dry oral mucosa, poor dentition. CV: Regular without significant murmur. PULM: CTA B with mildly diminished bases. No R/R/W. ABD: Soft, non-tender, no guarding or rebound. EXTR: No edema. INTEG: Petechiae in upper and lower extremities bilaterally, stable. Bruises on arms, hands. Healing abrasion/contusion to left knee. Excoriations on upper arms bilaterally. NEURO: No apparent focal motor neuro deficit though he has parkinsonian tremor. Gait improved with walker but he remains unsteady. Lab-Past 14 Days, 35 Results 12/22/16 08:30: Absolute Band Neutrophils 0.0, Alanine Aminotransferase (ALT/SGPT) 46, Albumin 2.8L, Albumin/Globulin Ratio 0.736L, Alkaline Phosphatase 182H, Anion Gap 15.6H , Aspartate Amino Transf (AST/SGOT) 51H, BUN/Creatinine Ratio 18, Band Neutrophils % 0, Basophils # (Auto) , Basophils # (Manual) 0.0, Basophils % ( Manual) 0, Basophils (%) (Auto) , Blood Morphology Comment Normal, Blood Urea Nitrogen 13, Calcium Level 8.2L, Calcium/Ionized Calcium Ratio 3.7L, Calculated Osmolality 273L, Carbon Dioxide Level 23, Chloride Level 108, Creatinine 0.71L, Differential Total Cells Counted 100, Eosinophils # 0.2, Eosinophils # (Auto) , Eosinophils % (Manual) 1, Eosinophils (%) (Auto) , Estimat Glomerular Filtration Rate 133.5, Estimated GFR (Non- 110.3, Glucose Level 27#*L, Hematocrit 31.10L, Hemoglobin 9.8L, Lymphocytes # 1.4, Lymphocytes # ( Auto) , Lymphocytes % (Manual) 7L, Lymphocytes (%) (Auto) , Mean Corpuscular Hemoglobin 31.0, Mean Corpuscular Hemoglobin Concent 31.5, Mean Corpuscular Volume 98, Mean Platelet Volume 9.8H, Monocytes # 1.0, Monocytes # (Auto) , Monocytes % (Manual) 5, Monocytes (%) (Auto) , UL-Kix-B-Type Natriuretic Peptide 429H, Neutrophils # 17.6, Neutrophils # (Auto) , Neutrophils (%) (Auto) , Platelet Count 482H, Potassium Level 4.0, Red Blood Count 3.16L, Red Cell Distribution Width 15.0, Segmented Neutrophils % 87H, Sodium Level 143, Total Bilirubin 0.3, Total Protein 6.6, White Blood Count 20.28H 12/22/16 08:50: Free Thyroxine (T4) Calculated 0.83, Phenytoin (Dilantin) Level 8.5L, Thyroid Stimulating Hormone (TSH) 4.84#H 12/22/16 17:55: Urine Bilirubin Negative, Urine Blood Negative, Urine Clarity Clear, Urine Collection Type Clean catch, Urine Color Yellow, Urine Glucose (UA) Negative, Urine Ketones Negative, Urine Leukocyte Esterase Negative, Urine Nitrite Negative, Urine Protein Negative, Urine Specific [place] 1.010, Urine Urobilinogen 0.2, Urine pH 6.5 12/23/16 05:02: Anion Gap 8.7, BUN/Creatinine Ratio 23H, Basophils # (Auto) 0.0, Basophils (%) ( Auto) 0, Blood Urea Nitrogen 15, Calcium Level 7.6L, Carbon Dioxide Level 27, Chloride Level 108, Creatinine 0.66L, Eosinophils # (Auto) 0.3, Eosinophils (%) (Auto) 3, Estimat Glomerular Filtration Rate 145.2, Estimated GFR (Non- 120.0, Glucose Level 89#, Hematocrit 24.70L, Hemoglobin 7.8L, Lymphocytes # (Auto) 2.3, Lymphocytes (%) (Auto) 25, Mean Corpuscular Hemoglobin 31.0, Mean Corpuscular Hemoglobin Concent 31.6, Mean Corpuscular Volume 98, Mean Platelet Volume 9.9H, Monocytes # (Auto) 1.0, Monocytes (%) ( Auto) 11, Neutrophils # (Auto) 5.5, Neutrophils (%) (Auto) 60, Platelet Count 282, Potassium Level 4.1, Red Blood Count 2.52L, Red Cell Distribution Width 14.9, Sodium Level 140, White Blood Count 9.18, Smear Scan Yes 12/24/16 05:35: Anion Gap 6.4, BUN/Creatinine Ratio 23H, Basophils # (Auto) 0.0, Basophils (%) ( Auto) 1, Blood Urea Nitrogen 14, Calcium Level 7.5L, Carbon Dioxide Level 29, Chloride Level 111H, Creatinine 0.61L, Eosinophils # (Auto) 0.4, Eosinophils (% ) (Auto) 5H, Estimat Glomerular Filtration Rate 159.1, Estimated GFR (Non- 131.5, Glucose Level 106, Hematocrit 22.70L, Hemoglobin 7.2L, Lymphocytes # (Auto) 1.9, Lymphocytes (%) (Auto) 27, Mean Corpuscular Hemoglobin 31.2, Mean Corpuscular Hemoglobin Concent 31.7, Mean Corpuscular Volume 98, Mean Platelet Volume 9.8H, Monocytes # (Auto) 0.8, Monocytes (%) ( Auto) 11, Neutrophils # (Auto) 4.1, Neutrophils (%) (Auto) 57, Platelet Count 243, Potassium Level 3.8, Red Blood Count 2.31L, Red Cell Distribution Width 14.9, Sodium Level 142, White Blood Count 7.17 12/24/16 15:25: Activated Partial Thromboplast Time 28.8, Prothromb Time International Ratio 1.1 , Prothrombin Time 11.8 12/24/16 21:36: Hematocrit 25.80L, Hemoglobin 8.2L 12/25/16 05:40: Basophils # (Auto) 0.0, Basophils (%) (Auto) 1, Eosinophils # (Auto) 0.4, Eosinophils (%) (Auto) 6H, Hematocrit 24.60L, Hemoglobin 7.9L, Lymphocytes # ( Auto) 2.0, Lymphocytes (%) (Auto) 31, Mean Corpuscular Hemoglobin 31.0, Mean Corpuscular Hemoglobin Concent 32.1, Mean Corpuscular Volume 97, Mean Platelet Volume 9.8H, Monocytes # (Auto) 0.6, Monocytes (%) (Auto) 9, Neutrophils # (Auto ) 3.5, Neutrophils (%) (Auto) 53, Platelet Count 232, Red Blood Count 2.55L, Red Cell Distribution Width 15.7H, White Blood Count 6.50, Smear Scan Yes 12/25/16 10:55: Stool Occult Blood Negative 12/25/16 16:10: Hematocrit 33.90L, Hemoglobin 10.8L 12/26/16 05:40: Hematocrit 28.10L, Hemoglobin 9.0L, Albumin 2.1#L, Anion Gap 10.0, Basophils # ( Auto) 0.0, Basophils (%) (Auto) 1, Blood Urea Nitrogen 11, Calcium Level 7.7L, Carbon Dioxide Level 24, Chloride Level 112H, Creatinine 0.56L, Eosinophils # ( Auto) 0.3, Eosinophils (%) (Auto) 6H, Estimat Glomerular Filtration Rate 175.6, Estimated GFR (Non- 145.1, Glucose Level 85, Lymphocytes # (Auto ) 1.4, Lymphocytes (%) (Auto) 24, Mean Corpuscular Hemoglobin 29.8, Mean Corpuscular Hemoglobin Concent 32.0, Mean Corpuscular Volume 93, Mean Platelet Volume 9.9H, Monocytes # (Auto) 0.6, Monocytes (%) (Auto) 10, Neutrophils # ( Auto) 3.5, Neutrophils (%) (Auto) 60, Phosphorus Level 2.7#, Platelet Count 211 , Potassium Level 3.6, Red Blood Count 3.02L, Red Cell Distribution Width 17.4H , Sodium Level 142, White Blood Count 5.80 12/26/16 19:06: Hematocrit 27.60L, Hemoglobin 8.8L 12/27/16 05:50: Basophils # (Auto) 0.0, Basophils (%) (Auto) 1, Eosinophils # (Auto) 0.3, Eosinophils (%) (Auto) 4, Hematocrit 29.00L, Hemoglobin 9.2L, Lymphocytes # ( Auto) 1.3, Lymphocytes (%) (Auto) 18L, Mean Corpuscular Hemoglobin 29.6, Mean Corpuscular Hemoglobin Concent 31.7, Mean Corpuscular Volume 93, Mean Platelet Volume 10.0H, Monocytes # (Auto) 0.8, Monocytes (%) (Auto) 10, Neutrophils # ( Auto) 4.9, Neutrophils (%) (Auto) 67, Platelet Count 251, Red Blood Count 3.11L , Red Cell Distribution Width 16.8H, White Blood Count 7.36 12/29/16 05:35: Basophils # (Auto) 0.0, Basophils (%) (Auto) 0, Eosinophils # (Auto) 0.8, Eosinophils (%) (Auto) 11H, Hematocrit 29.40L, Hemoglobin 9.1L, Lymphocytes # ( Auto) 1.8, Lymphocytes (%) (Auto) 24, Mean Corpuscular Hemoglobin 29.3, Mean Corpuscular Hemoglobin Concent 31.0, Mean Corpuscular Volume 95, Mean Platelet Volume 10.0H, Monocytes # (Auto) 1.0, Monocytes (%) (Auto) 13H, Neutrophils # ( Auto) 3.9, Neutrophils (%) (Auto) 52, Platelet Count 227, Red Blood Count 3.11L , Red Cell Distribution Width 16.5H, White Blood Count 7.43, Albumin 2.1L, Anion Gap 9.6, Blood Urea Nitrogen 14, Calcium Level 8.0L, Carbon Dioxide Level 25, Chloride Level 110H, Creatinine 0.64L, Estimat Glomerular Filtration Rate 150.5, Estimated GFR (Non- 124.4, Glucose Level 97, Phosphorus Level 2.8, Potassium Level 4.2, Sodium Level 141 12/27/16 CT CHEST W PROCEDURE: CT chest with contrast only. TECHNIQUE: Multiple contiguous axial images were obtained through the chest after administration of intravenous contrast. INDICATION: Gastric carcinoma staging. AVAILABLE COMPARISONS: None. FINDINGS: The great vessels are negative. Axillary lymph nodes are negative. Supraclavicular and mediastinal lymph nodes are negative. The hilar lymph nodes are negative. Pathologically enlarged subcarinal lymph node region is present measuring 4.3 x 2.7 cm The thoracic esophagus is dilated. The wall of the thoracic esophagus is abnormally thickened beginning in the mid esophageal region just below the pathologically enlarged lymph nodes in the subcarinal region. This thickening extends inferiorly to the EG junction. A mass-like appearance is noted at the EG junction protruding into the gastric cardia region. The retrocrural lymph nodes are negative. The there may be an enlarged periesophageal lymph node at the EG junction versus a portion of the mass at the EG junction. Left gastric lymph nodes are visible which are not significantly enlarged. Images through the upper abdomen showed the stomach to be distended with decreased pneumatosis of the stomach wall compared to the prior examination. Small bilateral pleural effusions are present. Scattered calcified lung granulomas are present. No noncalcified nodules are identified. There is no osteolytic or osteoblastic lesion identified. IMPRESSION: 1. Dilated proximal esophagus with esophageal wall thickening and mass of the mid and distal esophagus consistent with neoplasm. 2. Subcarinal lymphadenopathy consistent with metastasis. PET/CT may be helpful for staging. 3. Bilateral pleural effusions. 4. Decreased gastric pneumatosis when compared to the prior study. 12/22/16 ACUTE ABD SERIES Indication: Vomiting PA chest, supine and upright abdominal images were obtained. Bowel gas pattern is normal. There is no intraperitoneal free air. Lungs are clear. There are no pathologic masses or calcifications. Impression: Negative abdomen series. REFERENCE 12/08/16 CT ABDOMEN/PELVIS W PROCEDURE: CT abdomen and pelvis with contrast. TECHNIQUE: Multiple contiguous axial images were obtained through the abdomen and pelvis after administration of intravenous contrast. INDICATION: Ileus, nausea, and vomiting. There is abnormal thickening of the quinonez of the greater and lesser curvature of the stomach at the proximal body, fundus, and cardia. The segments of abnormal thickened gastric wall showed mural air and emphysematous gastritis. The draining venous system about the lesser and greater curvature shows intraluminal venous gas which extends into the liver and into the peripheral anti-dependent portal venous branches. The celiac artery , its primary branches, the superior mesenteric, and the inferior mesenteric arteries were all widely patent. The distal gastric body and its antrum thin walled, non thickened, without mural air. The duodenum, the small and the large bowel quinonez all non thickened. There were no other areas of enteric mural gas. There was no pneumatosis intestinalis. There is some gas in the gastric quinonze dissecting through the cardia and into the distal thoracic esophagus. The distal thoracic esophagus irregular, nodular, and thickened with its single wall thickness of 1.6 cm and that structure measuring short-axis outer wall/ outer wall diameter of 3.0 cm. I am told that the patient has been vomiting and retching. It is conceivable that the esophageal thickening is from a tear and some intramural hematoma and that the retching itself accounts for gastric emphysema. Other etiologies such as emphysematous gastritis, however, could not be excluded. Again this would be a very unusual location for arterial insufficiency accounting for ischemia, and we note no arterial obstruction. There is no free intraperitoneal air or findings of a transmural perforation. Aside from the portal venous air, the liver appeared otherwise unremarkable. The spleen is negative. There is a benign fatty nodule in the left adrenal gland , 1.8 cm. The pancreas appeared normal. There are bilateral renal parapelvic cysts greater left without hydronephrosis. The kidneys nonacute. There is no ascites, abscess, hematoma, or loculated fluid collection. IMPRESSION: Thickening of the quinonez of the proximal stomach along its greater and lesser curvatures through the cardia and into the distal esophagus. The areas of abnormal gastric wall thickening are accompanied by pneumatosis and gastric emphysema. There is heterogeneous thickening and irregular appearance of the distal thoracic esophagus. A unifying consideration in the history provided would raise the question of esophageal mucosal tear and intramural hemorrhage owing to the vomiting and the vomiting-inducing gastric emphysema with the venous drainage of this air accounting for the intrahepatic portal venous air. Infectious etiology such as emphysematous gastritis, however, could not be excluded; and given the abnormal appearance of the distal thoracic esophagus, its neoplastic infiltration cannot be excluded. Endoscopic correlation recommended. No free air or findings of a transmural perforation. The distal stomach, the duodenum, the small and the large bowel were unremarkable aside from a suggestion of mild regional small bowel ileus in the upper abdomen. Benign incidental renal parapelvic cyst. No biliary dilatation. No ascites. No arterial obstruction demonstrated. INDICATION: Abdominal pain Upper GI study and small bowel performed with Omnipaque contrast. Comparison made to CT of earlier today. The esophagus shows moderate dilatation in its proximal to midportion with diffuse irregularity and narrowing of the distal third of the esophagus. There is no extravasation of contrast. There is marked diffuse irregularity of the gastric wall compatible with the gastric wall thickening and pneumatosis visualized on the CT study. The duodenal bulb and sweep are unremarkable. Small bowel showed normal caliber throughout with normal small bowel fold pattern. Contrast reaches the right colon after about one hour and 20 minutes. There is no small bowel obstruction. IMPRESSION: There is diffuse thickening and irregularity of the lower esophagus and of the stomach, corresponding to the CT findings earlier today. There is no extravasation of contrast or focal ulcer. The differential diagnosis for pneumatosis in the stomach and distal esophagus would include infectious causes, ischemic causes, or caustic ingestion. There is slow motility of the esophagus due to the lower esophageal narrowing. Further evaluation with endoscopy is recommended as clinically warranted. The small bowel appeared unremarkable. ASSESSMENT Chris Velázquez is a 66 year old male admitted from ED 12/22 where he presented from snf with altered mental status and nausea/vomiting. He was found to have profound hypoglycemia on admit that improved with glucose supplement. However, he was also found to have worsening anemia and emesis worrisome for upper GI bleed. He has numerous chronic problems and recently had gastric pneumatosis and biliary pneumatosis that necessitated transfer to [facility]. However , no surgery or endoscopic interventions were reportedly done there. He did have EGD 12/26 which revealed gastric and esophageal cancer. Biopsy was not obtained because sites were still oozing blood. PLAN * Upper GI Bleed: Resolving. Has history of GI bleed and was most recently evaluated in ED 12/08/2016 by surgery for gastric pneumatosis with protal venous air in addition to concern for GI bleed. He had been transferred to [facility] for more advanced care. Ultimately did not have any intervention but he recovered somewhat and was discharged to [facility] for skilled care. Prior to this admit, likely had hematochezia again. This was not initially addressed on this admit. Stool negative for occult blood. Coag profile reassuring. Gave pantoprazole bolus and drip. Consulted surgery for upper endoscopy, performed 12/26 which showed esophageal and gastric cancer. Added sucralfate 12/28 though his bleeding was from cancer lesions, not mucosal ulcers. Records from [facility] admission placed on hard chart. * Gastroesophageal Cancer: Specific type unknown. EGD 12/26 but did not biopsy because still actively oozing blood. CT chest from this admission as noted showing subcarinal node enlargement consistent with metastasis. Per surgery, no recommendation for intervention at this time. Refer to oncology 01/01. Will need biopsy, PET. * Acute Blood Loss Anemia: Hgb julio 7.2 12/24. Transfused 12/24 and 12/25 for Hgb < 8. Monitor. Iron supplement started 12/29. * Hypoglycemia: Resolved. Glucose 27 on admit, improved with IVF. Held glimepiride. * Nausea/Vomiting: Resolved for the most part but he had a small emesis 12/29. Monitor. Ondansetron, promethazine. * Deconditioning: PT eval and treat. * F/E/N: Surgical soft diet. * Prophylaxis: SCDs * Code Status: Full code. Discussed with patient 12/24. * Dispo: Inpatient. Discharge deferred pending oncology consult which isn't available until Saturday. High risk of readmission which also favored additional stay but he has since stabilized. Will see about possible discharge back to [place] skilled care 12/30. Needs oncology referral. CHRONIC ISSUES * Parkinson's disease: Carbidopa/levodopa * HLD: Atorvastatin * Seizure Disorder: Levetiracetam, phenytoin, clonazepam * Diabetes Mellitus Type II: Hold glimepiride. Insulin sliding scale. * CHF: Type unknown. Not currently exacerbated. No prior echo on file. Hold carvedilol. * CAD: Hold clopidogrel. * Depression: Sertraline * Anxiety: Clonazepam * HTN: Hold losartan/HCTZ. * Constipation: Hold bowel regimen. * SARI: Not on therapy at home. Observe. HECTOR WEEKS MD Dec 29, 2016 16:49
[2016-12-29] MEDS: FERROUS SULFATE 325 MG (IRON) TABLET PO SCH (18:00)
[2016-12-29 19:46] VITALS: BP 117/62
--- NOTE | 2016-12-29 20:30 | NUR ---
Patient Care assumed after receiving report from ZANA Dong
[2016-12-29] MEDS: ATORVASTATIN 40 MG (LIPITOR) TABLET PO SCH (21:53)
[2016-12-30 00:35] VITALS: BP 119/77
[2016-12-30 03:32] VITALS: BP 128/56
[2016-12-30 03:34] VITALS: BP 128/56
[2016-12-30] MEDS: PANTOPRAZOLE 40 MG (PROTONIX) TAB PO SCH (06:29)
[2016-12-30] MEDS: LEVOTHYROXINE 125 MCG (LEVOTHROID) TABLET PO SCH (06:29)
[2016-12-30] MEDS: INSULIN LISPRO 1 UNIT/0.01 ML (HUMALOG) DOSE SC SCH ×2 (07:30→11:30)
[2016-12-30] MEDS: SUCRALFATE 1 GM (CARAFATE) TAB PO SCH ×2 (07:50→11:48)
[2016-12-30 08:00] VITALS: BP 130/61
--- NOTE | 2016-12-30 08:30 | NUR ---
pink pill brought to this nurse which was found on the floor, this was identified as Clonazepam which has not been administered yet today, will discard, likely dropped yesterday or earlier due to pt's tremors when using hands ( hands shake significantly, causing difficulty/accuracy when pt self administer's meds).
[2016-12-30] MEDS: SERTRALINE 100 MG (ZOLOFT) TABLET PO SCH (08:50)
[2016-12-30] MEDS: LEVETIRACETAM 500 MG (KEPPRA) TABLET PO SCH ×2 (08:51→12:52)
[2016-12-30] MEDS: clonazePAM 0.5 MG (KlonoPIN) TAB PO SCH ×2 (08:51→12:52)
[2016-12-30] MEDS: FERROUS SULFATE 325 MG (IRON) TABLET PO SCH (08:51)
[2016-12-30] MEDS: PHENYTOIN ER 100 MG (DILANTIN) CAPSULE PO SCH (08:51)
[2016-12-30] MEDS: CARVEDILOL 6.25 MG (COREG) TAB PO SCH (08:51)
[2016-12-30] MEDS: LEVODOPA PO SCH (08:52)
[2016-12-30] MEDS: CARBIDOPA PO SCH (08:52)
--- NOTE | 2016-12-30 11:45 | NUR ---
IVLs IN [facility] & L WRIST DC'D FOR DISCHARGE, SEE IV INTERVENTION FOR DETAILS, L WRIST SITE PINK, NO EDEMA. GAUZE & COBAN APPLIED TO BOTH DC SITES
[2016-12-30 11:52] VITALS: BP 106/58
[2016-12-30] MEDS ORDERED: GLIM2TAB PO (12:10)
[2016-12-30] MEDS ORDERED: FERR325T5 PO (12:10)
--- NOTE | 2016-12-30 12:19 | Discharge Instructions (E) ---
Discharge Instructions Instructions * You were initially admitted to the hospital for low blood sugar. This improved with glucose. Glimepiride was held. At discharge, your dose of glimepiride was lowered to 2 mg daily. Your blood sugar should be monitored twice daily, in the morning and at bedtime. Be sure to report if you have any symptoms of low blood sugar including confusion, tremors, sweats. Review the provided handout for details. * You had evidence of bleeding for your upper GI tract. This is related to your previous hospitalization in [place]. At [facility], it was recommended you have upper endoscopy but you decided to not go through with this. Having recovered some, you agreed to this procedure at this hospital and the result showed you had some bleeding from lesions in your esophagus and stomach that are likely due to cancer. At this time, no surgical intervention is needed. No biopsy was taken because you still had bleeding, so further workup is needed including further imaging and a new endoscopy to perform a biopsy. You have been referred to Dr. Bailey at [facility] in [place] for further evaluation. Records have been forwarded to his office and an appointment will be scheduled for evaluation. * Because of bleeding, clopidogrel has been stopped. * Your blood pressure has been well-controlled and you have not been taking losartan/hydrochlorothiazide. For now, this has also been stopped. Activity Instructions As tolerated. Doctor's Appointment Follow-up with your primary care doctor within the next week. You have been referred to oncologist for evaluation of stomach cancer. Their office will contact you regarding an appointment date and time. Discharge Diet: Carbohydrate controlled HECTOR WEEKS MD Dec 30, 2016 12:19
[2016-12-30] MEDS ORDERED: HYDR-3702 PO (12:35)
[2016-12-30] MEDS ORDERED: ONDA4TAB8 PO (12:35)
--- NOTE | 2016-12-30 13:15 | NUR ---
KEPPRA & CLONAZEPAM ADMIN PRIOR TO DISCHARGE, THIS WAS REPORTED TO ZANA AL WHEN REPORT CALLED
--- NOTE | 2016-12-30 13:15 | NUR ---
PT DISCHARGED TO [facility] IN STABLE CONDITION, REPORT ALREADY CALLED TO ZANA AL.
--- NOTE | 2016-12-30 13:16 | NUR ---
NURSE TO NURSE REPORT CALLED TO ZANA AL AT [facility]
--- NOTE | 2016-12-30 19:38 | Discharge Summary (E) ---
Discharge Summary (E) Admit Date/Time Dec 24, 2016 at 10:07 Discharge Date/Time Dec 30, 2016 at 13:15 Admitting Provider Torin Alan DO Primary Care Provider Benny Freeman MD Attending Provider Torin Alan DO Consulting Provider CAROL COLIN MD Procedures 12/26/2016 EGD FINDINGS: At the GE junction and extending both proximally and distally, there was a fungating mucosal lesion that is very likely malignant. A photograph was obtained. The surface of the mid to proximal esophagus was also very irregular and may contain the same entity. Biopsies were not obtained due to the patient' s anemia and recent Plavix use. The stomach and duodenum appeared unremarkable, though the fundus could not be completely evaluated due to retained food. History and Present Illness Chris Velázquez is a 66 year old male admitted from ED 12/22 where he presented from [facility] with altered mental status and nausea/vomiting. He was found to have profound hypoglycemia on admit that improved with glucose supplement. However, he was also found to have worsening anemia and emesis worrisome for upper GI bleed. He has numerous chronic problems and recently had gastric pneumatosis and biliary pneumatosis that necessitated transfer to [facility]. However , no surgery or endoscopic interventions were reportedly done there. He did have EGD 12/26 during this hospitalization which revealed a fungating lesion in the esophagus consistent with cancer. Biopsy was not obtained because sites were still oozing blood and he had been on clopidogrel. Anemia was stabilized with transfusion and cessation of clopidogrel. Blood glucose was stabilized as outlined. He was kept in hospital for > 48 hours post-EGD. He had had some small amount of blood emesis but then had no further bleeding for 48 hours more. Having stabilized, he was discharged back to [facility] with residential status. Referral is being made to oncology. This may be able to be arranged as early as 01/01 with [facility] in [place]. Records were forwarded to their office and [facility] will have to contact them 12/31 to see about getting scheduled. He will have to have repeat EGD for biopsy at some point. Hospital Course and Treatment * Upper GI Bleed: Resolving. Has history of GI bleed and was most recently evaluated in ED 12/08/2016 by surgery for gastric pneumatosis with protal venous air in addition to concern for GI bleed. He had been transferred to [facility] for more advanced care. Ultimately did not have any intervention but he recovered somewhat and was discharged to [facility] for skilled care. Prior to this admit, likely had hematochezia again. This was not initially addressed on this admit. Stool negative for occult blood. Coag profile reassuring. Gave pantoprazole bolus and drip. Consulted surgery for upper endoscopy, performed 12/26 which showed lesion suspicious for esophageal cancer. Added sucralfate 12/28 though his bleeding was from cancer lesions, not mucosal ulcers. Records from [facility] admission placed on hard chart. * Esophageal Cancer: Specific type unknown. EGD 12/26 but did not biopsy because still actively oozing blood. CT chest from this admission as noted showing subcarinal node enlargement consistent with metastasis. Per surgery, no recommendation for intervention at this time. Refer to oncology 01/01. Records sent to [facility] and [facility] will need to call on Saturday to see about definitively scheduling an appointment. Will need to be brought back for repeat EGD and biopsy. This could be arranged through Dr. Colin's clinic. * Acute Blood Loss Anemia: Hgb julio 7.2 12/24. Transfused 12/24 and 12/25 for Hgb < 8. Monitor. Iron supplement started 12/29. * Hypoglycemia: Resolved. Glucose 27 on admit, improved with IVF. Held glimepiride. At discharge, resumed but at lower dose. * Nausea/Vomiting: Resolved for the most part but he had a small emesis 12/29. Monitor. Ondansetron, promethazine. Prescribed ondansetron at discharge. * Deconditioning: PT eval and treat. Continue with OT in skilled care on discharge. * Dysphagia: Mild... added Speech therapy on discharge to skilled care. * F/E/N: Surgical soft diet. * Prophylaxis: SCDs * Code Status: Full code. Discussed with patient 12/24. * Dispo: Inpatient. Discharge had been deferred pending oncology consult which isn't available until Saturday. High risk of readmission which also favored additional stay but he has since stabilized. But he did stabilize well so discharged back to [facility] on skilled care 12/30. CHRONIC ISSUES * Parkinson's disease: Carbidopa/levodopa * HLD: Atorvastatin * Seizure Disorder: Levetiracetam, phenytoin, clonazepam * Diabetes Mellitus Type II: Hold glimepiride. Insulin sliding scale. At discharge, resumed glimepiride but at lower dose. * CHF: Type unknown. Not currently exacerbated. No prior echo on file. Hold carvedilol. * CAD: Hold clopidogrel. * Depression: Sertraline * Anxiety: Clonazepam * HTN: Hold losartan/HCTZ. Stopped at discharge because blood pressure was stable without it. * Constipation: Hold bowel regimen. * SARI: Not on therapy at home. Observe. Discharge Physicial Exam General Vital Signs Date Time Temp Pulse Resp B/P Pulse Ox O2 Delivery O2 Flow Rate FiO2 12/30/16 11:52 97.4 66 20 106/58 93 Room air 12/29/16 19:46 0.00 GEN: Awake, interactive, oriented. NAD at present. HEENT: EOMI, clear sclerae, somewhat dry oral mucosa, poor dentition. CV: Regular without significant murmur. PULM: CTA B with mildly diminished bases. No R/R/W. ABD: Soft, non-tender, no guarding or rebound. EXTR: No edema. INTEG: Petechiae in upper and lower extremities bilaterally, stable. Bruises on arms, hands. Healing abrasion/contusion to left knee. Excoriations on upper arms bilaterally. Mild pallor. NEURO: No apparent focal motor neuro deficit though he has parkinsonian tremor. Laboratory/Radiology Data Lab-Past 14 Days, 35 Results 12/22/16 08:30: Absolute Band Neutrophils 0.0, Alanine Aminotransferase (ALT/SGPT) 46, Albumin 2.8L, Albumin/Globulin Ratio 0.736L, Alkaline Phosphatase 182H, Anion Gap 15.6H , Aspartate Amino Transf (AST/SGOT) 51H, BUN/Creatinine Ratio 18, Band Neutrophils % 0, Basophils # (Auto) , Basophils # (Manual) 0.0, Basophils % ( Manual) 0, Basophils (%) (Auto) , Blood Morphology Comment Normal, Blood Urea Nitrogen 13, Calcium Level 8.2L, Calcium/Ionized Calcium Ratio 3.7L, Calculated Osmolality 273L, Carbon Dioxide Level 23, Chloride Level 108, Creatinine 0.71L, Differential Total Cells Counted 100, Eosinophils # 0.2, Eosinophils # (Auto) , Eosinophils % (Manual) 1, Eosinophils (%) (Auto) , Estimat Glomerular Filtration Rate 133.5, Estimated GFR (Non- 110.3, Glucose Level 27#*L, Hematocrit 31.10L, Hemoglobin 9.8L, Lymphocytes # 1.4, Lymphocytes # ( Auto) , Lymphocytes % (Manual) 7L, Lymphocytes (%) (Auto) , Mean Corpuscular Hemoglobin 31.0, Mean Corpuscular Hemoglobin Concent 31.5, Mean Corpuscular Volume 98, Mean Platelet Volume 9.8H, Monocytes # 1.0, Monocytes # (Auto) , Monocytes % (Manual) 5, Monocytes (%) (Auto) , ST-Hxg-J-Type Natriuretic Peptide 429H, Neutrophils # 17.6, Neutrophils # (Auto) , Neutrophils (%) (Auto) , Platelet Count 482H, Potassium Level 4.0, Red Blood Count 3.16L, Red Cell Distribution Width 15.0, Segmented Neutrophils % 87H, Sodium Level 143, Total Bilirubin 0.3, Total Protein 6.6, White Blood Count 20.28H 12/22/16 08:50: Free Thyroxine (T4) Calculated 0.83, Phenytoin (Dilantin) Level 8.5L, Thyroid Stimulating Hormone (TSH) 4.84#H 12/22/16 17:55: Urine Bilirubin Negative, Urine Blood Negative, Urine Clarity Clear, Urine Collection Type Clean catch, Urine Color Yellow, Urine Glucose (UA) Negative, Urine Ketones Negative, Urine Leukocyte Esterase Negative, Urine Nitrite Negative, Urine Protein Negative, Urine Specific Ewing 1.010, Urine Urobilinogen 0.2, Urine pH 6.5 12/23/16 05:02: Anion Gap 8.7, BUN/Creatinine Ratio 23H, Basophils # (Auto) 0.0, Basophils (%) ( Auto) 0, Blood Urea Nitrogen 15, Calcium Level 7.6L, Carbon Dioxide Level 27, Chloride Level 108, Creatinine 0.66L, Eosinophils # (Auto) 0.3, Eosinophils (%) (Auto) 3, Estimat Glomerular Filtration Rate 145.2, Estimated GFR (Non- 120.0, Glucose Level 89#, Hematocrit 24.70L, Hemoglobin 7.8L, Lymphocytes # (Auto) 2.3, Lymphocytes (%) (Auto) 25, Mean Corpuscular Hemoglobin 31.0, Mean Corpuscular Hemoglobin Concent 31.6, Mean Corpuscular Volume 98, Mean Platelet Volume 9.9H, Monocytes # (Auto) 1.0, Monocytes (%) ( Auto) 11, Neutrophils # (Auto) 5.5, Neutrophils (%) (Auto) 60, Platelet Count 282, Potassium Level 4.1, Red Blood Count 2.52L, Red Cell Distribution Width 14.9, Sodium Level 140, White Blood Count 9.18, Smear Scan Yes 12/24/16 05:35: Anion Gap 6.4, BUN/Creatinine Ratio 23H, Basophils # (Auto) 0.0, Basophils (%) ( Auto) 1, Blood Urea Nitrogen 14, Calcium Level 7.5L, Carbon Dioxide Level 29, Chloride Level 111H, Creatinine 0.61L, Eosinophils # (Auto) 0.4, Eosinophils (% ) (Auto) 5H, Estimat Glomerular Filtration Rate 159.1, Estimated GFR (Non- 131.5, Glucose Level 106, Hematocrit 22.70L, Hemoglobin 7.2L, Lymphocytes # (Auto) 1.9, Lymphocytes (%) (Auto) 27, Mean Corpuscular Hemoglobin 31.2, Mean Corpuscular Hemoglobin Concent 31.7, Mean Corpuscular Volume 98, Mean Platelet Volume 9.8H, Monocytes # (Auto) 0.8, Monocytes (%) ( Auto) 11, Neutrophils # (Auto) 4.1, Neutrophils (%) (Auto) 57, Platelet Count 243, Potassium Level 3.8, Red Blood Count 2.31L, Red Cell Distribution Width 14.9, Sodium Level 142, White Blood Count 7.17 12/24/16 15:25: Activated Partial Thromboplast Time 28.8, Prothromb Time International Ratio 1.1 , Prothrombin Time 11.8 12/24/16 21:36: Hematocrit 25.80L, Hemoglobin 8.2L 12/25/16 05:40: Basophils # (Auto) 0.0, Basophils (%) (Auto) 1, Eosinophils # (Auto) 0.4, Eosinophils (%) (Auto) 6H, Hematocrit 24.60L, Hemoglobin 7.9L, Lymphocytes # ( Auto) 2.0, Lymphocytes (%) (Auto) 31, Mean Corpuscular Hemoglobin 31.0, Mean Corpuscular Hemoglobin Concent 32.1, Mean Corpuscular Volume 97, Mean Platelet Volume 9.8H, Monocytes # (Auto) 0.6, Monocytes (%) (Auto) 9, Neutrophils # (Auto ) 3.5, Neutrophils (%) (Auto) 53, Platelet Count 232, Red Blood Count 2.55L, Red Cell Distribution Width 15.7H, White Blood Count 6.50, Smear Scan Yes 12/25/16 10:55: Stool Occult Blood Negative 12/25/16 16:10: Hematocrit 33.90L, Hemoglobin 10.8L 12/26/16 05:40: Hematocrit 28.10L, Hemoglobin 9.0L, Albumin 2.1#L, Anion Gap 10.0, Basophils # ( Auto) 0.0, Basophils (%) (Auto) 1, Blood Urea Nitrogen 11, Calcium Level 7.7L, Carbon Dioxide Level 24, Chloride Level 112H, Creatinine 0.56L, Eosinophils # ( Auto) 0.3, Eosinophils (%) (Auto) 6H, Estimat Glomerular Filtration Rate 175.6, Estimated GFR (Non- 145.1, Glucose Level 85, Lymphocytes # (Auto ) 1.4, Lymphocytes (%) (Auto) 24, Mean Corpuscular Hemoglobin 29.8, Mean Corpuscular Hemoglobin Concent 32.0, Mean Corpuscular Volume 93, Mean Platelet Volume 9.9H, Monocytes # (Auto) 0.6, Monocytes (%) (Auto) 10, Neutrophils # ( Auto) 3.5, Neutrophils (%) (Auto) 60, Phosphorus Level 2.7#, Platelet Count 211 , Potassium Level 3.6, Red Blood Count 3.02L, Red Cell Distribution Width 17.4H , Sodium Level 142, White Blood Count 5.80 12/26/16 19:06: Hematocrit 27.60L, Hemoglobin 8.8L 12/27/16 05:50: Basophils # (Auto) 0.0, Basophils (%) (Auto) 1, Eosinophils # (Auto) 0.3, Eosinophils (%) (Auto) 4, Hematocrit 29.00L, Hemoglobin 9.2L, Lymphocytes # ( Auto) 1.3, Lymphocytes (%) (Auto) 18L, Mean Corpuscular Hemoglobin 29.6, Mean Corpuscular Hemoglobin Concent 31.7, Mean Corpuscular Volume 93, Mean Platelet Volume 10.0H, Monocytes # (Auto) 0.8, Monocytes (%) (Auto) 10, Neutrophils # ( Auto) 4.9, Neutrophils (%) (Auto) 67, Platelet Count 251, Red Blood Count 3.11L , Red Cell Distribution Width 16.8H, White Blood Count 7.36 12/29/16 05:35: Basophils # (Auto) 0.0, Basophils (%) (Auto) 0, Eosinophils # (Auto) 0.8, Eosinophils (%) (Auto) 11H, Hematocrit 29.40L, Hemoglobin 9.1L, Lymphocytes # ( Auto) 1.8, Lymphocytes (%) (Auto) 24, Mean Corpuscular Hemoglobin 29.3, Mean Corpuscular Hemoglobin Concent 31.0, Mean Corpuscular Volume 95, Mean Platelet Volume 10.0H, Monocytes # (Auto) 1.0, Monocytes (%) (Auto) 13H, Neutrophils # ( Auto) 3.9, Neutrophils (%) (Auto) 52, Platelet Count 227, Red Blood Count 3.11L , Red Cell Distribution Width 16.5H, White Blood Count 7.43, Albumin 2.1L, Anion Gap 9.6, Blood Urea Nitrogen 14, Calcium Level 8.0L, Carbon Dioxide Level 25, Chloride Level 110H, Creatinine 0.64L, Estimat Glomerular Filtration Rate 150.5, Estimated GFR (Non- 124.4, Glucose Level 97, Phosphorus Level 2.8, Potassium Level 4.2, Sodium Level 141 12/27/16 CT CHEST W PROCEDURE: CT chest with contrast only. TECHNIQUE: Multiple contiguous axial images were obtained through the chest after administration of intravenous contrast. INDICATION: Gastric carcinoma staging. AVAILABLE COMPARISONS: None. FINDINGS: The great vessels are negative. Axillary lymph nodes are negative. Supraclavicular and mediastinal lymph nodes are negative. The hilar lymph nodes are negative. Pathologically enlarged subcarinal lymph node region is present measuring 4.3 x 2.7 cm The thoracic esophagus is dilated. The wall of the thoracic esophagus is abnormally thickened beginning in the mid esophageal region just below the pathologically enlarged lymph nodes in the subcarinal region. This thickening extends inferiorly to the EG junction. A mass-like appearance is noted at the EG junction protruding into the gastric cardia region. The retrocrural lymph nodes are negative. The there may be an enlarged periesophageal lymph node at the EG junction versus a portion of the mass at the EG junction. Left gastric lymph nodes are visible which are not significantly enlarged. Images through the upper abdomen showed the stomach to be distended with decreased pneumatosis of the stomach wall compared to the prior examination. Small bilateral pleural effusions are present. Scattered calcified lung granulomas are present. No noncalcified nodules are identified. There is no osteolytic or osteoblastic lesion identified. IMPRESSION: 1. Dilated proximal esophagus with esophageal wall thickening and mass of the mid and distal esophagus consistent with neoplasm. 2. Subcarinal lymphadenopathy consistent with metastasis. PET/CT may be helpful for staging. 3. Bilateral pleural effusions. 4. Decreased gastric pneumatosis when compared to the prior study. 12/22/16 ACUTE ABD SERIES Indication: Vomiting PA chest, supine and upright abdominal images were obtained. Bowel gas pattern is normal. There is no intraperitoneal free air. Lungs are clear. There are no pathologic masses or calcifications. Impression: Negative abdomen series. REFERENCE 12/08/16 CT ABDOMEN/PELVIS W PROCEDURE: CT abdomen and pelvis with contrast. TECHNIQUE: Multiple contiguous axial images were obtained through the abdomen and pelvis after administration of intravenous contrast. INDICATION: Ileus, nausea, and vomiting. There is abnormal thickening of the quinonez of the greater and lesser curvature of the stomach at the proximal body, fundus, and cardia. The segments of abnormal thickened gastric wall showed mural air and emphysematous gastritis. The draining venous system about the lesser and greater curvature shows intraluminal venous gas which extends into the liver and into the peripheral anti-dependent portal venous branches. The celiac artery , its primary branches, the superior mesenteric, and the inferior mesenteric arteries were all widely patent. The distal gastric body and its antrum thin walled, non thickened, without mural air. The duodenum, the small and the large bowel quinonez all non thickened. There were no other areas of enteric mural gas. There was no pneumatosis intestinalis. There is some gas in the gastric quinonez dissecting through the cardia and into the distal thoracic esophagus. The distal thoracic esophagus irregular, nodular, and thickened with its single wall thickness of 1.6 cm and that structure measuring short-axis outer wall/ outer wall diameter of 3.0 cm. I am told that the patient has been vomiting and retching. It is conceivable that the esophageal thickening is from a tear and some intramural hematoma and that the retching itself accounts for gastric emphysema. Other etiologies such as emphysematous gastritis, however, could not be excluded. Again this would be a very unusual location for arterial insufficiency accounting for ischemia, and we note no arterial obstruction. There is no free intraperitoneal air or findings of a transmural perforation. Aside from the portal venous air, the liver appeared otherwise unremarkable. The spleen is negative. There is a benign fatty nodule in the left adrenal gland , 1.8 cm. The pancreas appeared normal. There are bilateral renal parapelvic cysts greater left without hydronephrosis. The kidneys nonacute. There is no ascites, abscess, hematoma, or loculated fluid collection. IMPRESSION: Thickening of the quinonez of the proximal stomach along its greater and lesser curvatures through the cardia and into the distal esophagus. The areas of abnormal gastric wall thickening are accompanied by pneumatosis and gastric emphysema. There is heterogeneous thickening and irregular appearance of the distal thoracic esophagus. A unifying consideration in the history provided would raise the question of esophageal mucosal tear and intramural hemorrhage owing to the vomiting and the vomiting-inducing gastric emphysema with the venous drainage of this air accounting for the intrahepatic portal venous air. Infectious etiology such as emphysematous gastritis, however, could not be excluded; and given the abnormal appearance of the distal thoracic esophagus, its neoplastic infiltration cannot be excluded. Endoscopic correlation recommended. No free air or findings of a transmural perforation. The distal stomach, the duodenum, the small and the large bowel were unremarkable aside from a suggestion of mild regional small bowel ileus in the upper abdomen. Benign incidental renal parapelvic cyst. No biliary dilatation. No ascites. No arterial obstruction demonstrated. INDICATION: Abdominal pain Upper GI study and small bowel performed with Omnipaque contrast. Comparison made to CT of earlier today. The esophagus shows moderate dilatation in its proximal to midportion with diffuse irregularity and narrowing of the distal third of the esophagus. There is no extravasation of contrast. There is marked diffuse irregularity of the gastric wall compatible with the gastric wall thickening and pneumatosis visualized on the CT study. The duodenal bulb and sweep are unremarkable. Small bowel showed normal caliber throughout with normal small bowel fold pattern. Contrast reaches the right colon after about one hour and 20 minutes. There is no small bowel obstruction. IMPRESSION: There is diffuse thickening and irregularity of the lower esophagus and of the stomach, corresponding to the CT findings earlier today. There is no extravasation of contrast or focal ulcer. The differential diagnosis for pneumatosis in the stomach and distal esophagus would include infectious causes, ischemic causes, or caustic ingestion. There is slow motility of the esophagus due to the lower esophageal narrowing. Further evaluation with endoscopy is recommended as clinically warranted. The small bowel appeared unremarkable. Discharge Disposition Discharged to [facility] for residential care. Instructions * You were initially admitted to the hospital for low blood sugar. This improved with glucose. Glimepiride was held. At discharge, your dose of glimepiride was lowered to 2 mg daily. Your blood sugar should be monitored twice daily, in the morning and at bedtime. Be sure to report if you have any symptoms of low blood sugar including confusion, tremors, sweats. Review the provided handout for details. * You had evidence of bleeding for your upper GI tract. This is related to your previous hospitalization in [place]. At [facility], it was recommended you have upper endoscopy but you decided to not go through with this. Having recovered some, you agreed to this procedure at this hospital and the result showed you had some bleeding from lesions in your esophagus and stomach that are likely due to cancer. At this time, no surgical intervention is needed. No biopsy was taken because you still had bleeding, so further workup is needed including further imaging and a new endoscopy to perform a biopsy. You have been referred to Dr. Bailey at [facility] in [place] for further evaluation. Records have been forwarded to his office and an appointment will be scheduled for evaluation. * Because of bleeding, clopidogrel has been stopped. * Your blood pressure has been well-controlled and you have not been taking losartan/hydrochlorothiazide. For now, this has also been stopped. Activity Instructions As tolerated. Appointments Follow-up with your primary care doctor within the next week. You have been referred to oncologist for evaluation of stomach cancer. Their office will contact you regarding an appointment date and time. Discharge Diet: Carbohydrate controlled Discharge Medications New Medications: Glimepiride (Glimepiride) 2 Mg Tablet 2 MG PO DAILY #30 Ref 0 TAB Hydrocodone/Acetaminophen (Anthony 5mg/325mg) 1 Each Tablet 1 TAB PO Q4H PRN PAIN #15 Ref 0 TAB Ondansetron (Zofran ODT) 4 Mg Tab.rapdis 4 MG PO Q4H PRN NAUSEA #30 Ref 0 TAB Ferrous Sulfate (Ferrous Sulfate) 325 Mg Tablet.dr 325 MG PO BID WITH MEALS #60 Ref 0 TAB Continued Medications: Acetaminophen (Acetaminophen) 325 Mg Tablet 650 MG PO Q4H PRN PAIN Ref 0 TAB Atorvastatin (Lipitor) 80 Mg Tablet 80 MG PO HS TAB Carbidopa/Levodopa (Carbidopa-Levodopa 25mg-250mg) 1 Each Tablet 1 TAB PO BID Carvedilol (Coreg) 6.25 Mg Tablet 6.25 MG PO BID WITH MEALS Clonazepam (Clonazepam) 2 Mg Tablet 3 MG PO TID Levetiracetam (Keppra) 500 Mg Tab 1000 MG PO TID Levothyroxine Sodium (Levothyroxine Sodium) 125 Mcg Tablet 125 MCG PO DAILY@0700 TAB Pantoprazole Sod (Protonix Tab) 40 Mg Tab 40 MG PO DAILY@1400 TAB Phenytoin Sodium Extended (Dilantin) 100 Mg Capsule 300 MG PO DAILY@0900 Phenytoin Sodium Extended (Dilantin) 100 Mg Capsule 400 MG PO DAILY@2100 Sertraline HCl (Sertraline HCl) 100 Mg Tablet 100 MG PO DAILY TAB Discontinued Medications: Amoxicillin/Clavulanate Potassium (Augmentin 875mg/125mg) 1 Each Tablet 1 EACH PO BID Infection Ref 0 TAB Clopidogrel Bisulfate (Plavix) 75 Mg Tablet 75 MG PO DAILY Cardiac problems Glimepiride (Glimepiride) 4 Mg Tablet 4 MG PO BID TAB Losartan/Hydrochlorothiazide (Losartan-HCTZ 100-25 mg Tab) 1 Each Tablet 1 EACH PO DAILY TAB Ondansetron (Zofran ODT) 4 Mg Tab.rapdis 4 MG PO Q4H PRN NAUSEA/VOMITING Ref 0 TAB Follow up Follow up Referrals: Physician Referral - 01/01/17 with Sandro Bailey Md New Orders: CBC WITH AUTOMATED DIFF* - 01/21/17 CBC WITH AUTOMATED DIFF* - 01/01/17 Discharge Diagnosis See list above. Problems: Copies to: End of Report . HECTOR WEEKS MD Dec 30, 2016 19:38
== END 2016-12-30 13:15 | DRG 375 ==
LOC: EDUNIT# 08:09 → ED 08:10 → INTOOBSV 13:15 → OBSVTOIN 13:15 → MED/SURG 13:15 → OBSVTOIN 12-24 10:07
PROC: 0DJ08ZZ Inspection of Upper Intestinal Tract, Via Natural or Artificial Opening Endoscopic (ICD-10-PCS; principal; 2016-12-26)
DX: C16.0 Malignant neoplasm of cardia (principal); D62 Acute posthemorrhagic anemia; C77.1 Secondary and unspecified malignant neoplasm of intrathoracic lymph nodes; E11.649 Type 2 diabetes mellitus with hypoglycemia without coma; G20 Parkinson's disease; G40.909 Epilepsy, unspecified, not intractable, without status epilepticus; I11.0 Hypertensive heart disease with heart failure; I50.9 Heart failure, unspecified; I25.10 Atherosclerotic heart disease of native coronary artery without angina pectoris; Z79.02 Long term (current) use of antithrombotics/antiplatelets; Z79.84 Long term (current) use of oral hypoglycemic drugs; Z95.5 Presence of coronary angioplasty implant and graft; Z87.891 Personal history of nicotine dependence
CPT/HCPCS: 36415; 36430; 71260; 74022; 80048; 80053; 80069; 80185; 81003; 83880; 84439; 84443; 85014; 85018; 85025; 85610; 85730; 86850; 86900; 86901; 86920; 99283; 99284

== ENCOUNTER → 2016-12-22 | Outpatient (CLI) | payer MEDICARE, MEDICAID ==
[~2016-12-22] MED LIST changes: +AC325T PO; +AMOX-358 PO; +ONDA4TAB8 PO
== END ==
LOC: EMS 08:00
PROVIDERS: ATTEND Emergency Medicine
DX: R19.7 Diarrhea, unspecified (principal); R11.2 Nausea with vomiting, unspecified; E11.9 Type 2 diabetes mellitus without complications

== ENCOUNTER → 2017-01-09 | Outpatient (CLI) | payer MEDICARE, MEDICAID ==
[~2017-01-09] MED LIST changes: +FERR325T5 PO; +GLIM2TAB PO; +HYDR-3702 PO; +ONDA4TAB8 PO
== END ==
LOC: LAB 11:35
PROVIDERS: ATTEND Surgery
DX: Z86.2 Personal history of diseases of the blood and blood-forming organs and certain disorders involving the immune mechanism (principal)
CPT/HCPCS: 36415; 85018

== ENCOUNTER → 2017-01-11 | Outpatient (REF) | payer MEDICARE, MEDICAID ==
[2017-01-11 10:26] LABS: BASOPHILS % (AUTO) 0 % (0-2); EOSINOPHILS # (AUTO) 0.3 10^3uL; EOSINOPHILS % (AUTO) 4 % (0-4); LYMPHOCYTES # (AUTO) 1.4 X10^3; MEAN CORPUSCULAR HEMOGLOBIN 28.9 PG (26.0-34.0); MEAN CORPUSCULAR VOLUME 92 FL (80-100); MEAN PLATELET VOLUME 10.3 FL (6.0-9.5); MONOCYTES # (AUTO) 0.8 X10^3; MONOCYTES % (AUTO) 14 % (3-11); NEUTROPHILS # (AUTO) 3.3 X10^3; NEUTROPHILS % (AUTO) 57 % (51-67); PLATELET COUNT 238 10^3uL (150-450); WHITE BLOOD COUNT 5.79 10^3uL (4.0-11.0)
[2017-01-11 11:28] LABS: MEAN CORPUSCULAR HGB CONC 31.3 g/dL (31.0-37.0)
[2017-01-11 14:10] LABS: HEPATITIS B CORE ABY IGM Negative; HEPATITIS B SURFACE ANTIGEN C Negative
== END ==
LOC: LAB 10:09
PROVIDERS: ATTEND Family Medicine
DX: M62.81 Muscle weakness (generalized) (principal); W46.0XXA Contact with hypodermic needle, initial encounter
CPT/HCPCS: 85025; 86704; 86706; 86803; 87340; G0433

== ENCOUNTER 2017-01-16 06:59 | Day surgery (SDC) | payer MEDICARE, MEDICAID ==
[~2017-01-16] VITALS: Ht 185.4 cm; Wt 95.1 kg
[~2017-01-16 06:59] MED LIST changes: +LACTATED RINGERS 1,000 ML IV SCH; +LIDOCAINE 4% TOPICAL 4.5 ML SYR ONE; +SIMETHICONE 40 MG/0.6 ML (MYLICON DROPS) ORAL SYRINGE ONE; +SODIUM CHLORIDE FLUSH 3 ML SYR IV PRN
[2017-01-16] MEDS ORDERED: ALFENTANIL 500 MCG/ML (ALFENTA) 5 ML AMP IV ONE ×2 (07:00)
[2017-01-16] MEDS ORDERED: MIDAZOLAM 2 MG/2 ML (VERSED) VIAL ONE (07:00)
[2017-01-16] MEDS ORDERED: PROPOFOL 20 ML IV ONE (07:01)
--- OUTSIDE RECORDS SUMMARY | 2017-01-16 07:03 | XMS REPORT | Summary of Care ---
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 Unavailable Unavailable Dante Paulson M.D. Unavailable Unavailable Benny Freeman Unavailable Unavailable Unavailable Unavailable Functional Status Name Dates Details Functional status health issues are not documented Status: Name Dates Details Cognitive status health issues are not documented Status: Problems Name Dates Details Abdominal pain (789.00, R10.9) Status: Active Other seborrheic dermatitis (690.18, L21.8) Status: Active HTN (hypertension) (401.9, I10) Status: Active Hypothyroidism (244.9, E03.9) Status: Active Posthemorrhagic anemia (280.0, D50.0) Status: Active Seasonal allergies (477.9, J30.2) Status: Active High cholesterol (272.0, E78.00) Status: Active GI bleed (578.9, K92.2) Status: Active Anemia (285.9, D64.9) Status: Active Depression (311, F32.9) Status: Active Constipation (564.00, K59.00) Status: Active EP (epilepsy) (345.90, G40.909) Status: Active Fall at home (E888.9, W19.XXXA) Status: Active 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 Quantity: 210 Refills: 6 Ariel Freeman M.D. Start 02-May-2010 Active Levothyroxine Sodium 125 MCG Oral Tablet take one tablet by mouth every day Quantity: 90 Refills: 3 Ariel Freeman M.D. Start 02-May-2010 Active LevETIRAcetam 500 MG Oral Tablet Take 2 tabs po TID. Quantity: 180 Refills: 6 Ariel Freeman M.D. Start 02-May-2010 Active ClonazePAM 2 MG Oral Tablet TAKE 1 TABLET 3 TIMES DAILY NEEDED. Quantity: 90 Refills: 0 Ashley Romero Huyen Start 02-May-2010 Active Alclometasone Dipropionate 0.05 % External Cream APPLY SPARINGLY TO THE AFFECTED AREA(S) ONCE DAILY AT NIGHT Quantity: 1 Refills: 1 Lorene RomeroGuillermo Start 20-Oct-2015 Active 15 GM Tube Ketoconazole 2 % External Cream APPLY SPARINGLY TO AFFECTED AREA(S) TWICE DAILY IN THE MORNING Quantity: 1 Refills: 1 Lorene Romero Guillermo Howell Start 20-Oct-2015 Active 30 GM Tube Losartan Potassium-HCTZ 100-25 MG Oral Tablet TAKE 1 TABLET ONCE DAILY. Quantity: 90 Refills: 3 Ariel Freeman M.D. Start Active Glimepiride 4 MG Oral Tablet TAKE 1 TABLET TWICE DAILY. Quantity: 60 Refills: 11 Ariel Freeman M.D. Start Active TraZODone HCl - 50 MG Oral Tablet TAKE 2 TABLETS AT BEDTIME. Quantity: 120 Refills: 0 Ariel Freeman M.D. Start Active Atorvastatin Calcium 80 MG Oral Tablet TAKE 1 TABLET AT BEDTIME. Quantity: 30 Refills: 6 ePte Romero, Ariel Start Active Sertraline HCl - 100 MG Oral Tablet TAKE 1 TABLET DAILY. Quantity: 90 Refills: 3 Benny Freeman M.D. Start Active Carvedilol 6.25 MG Oral Tablet TAKE 1 TABLET TWICE DAILY WITH MEALS. Quantity: 60 Refills: 11 Ariel Freeman M.D. Start Active Multi-Vitamin/Minerals Oral Tablet TAKE 1 TABLET DAILY. Refills: 0 Ariel Freeman M.D. Start Active Carbidopa-Levodopa 25-250 MG Oral Tablet Dispersible 1 PO BID PRN tremor Quantity: 60 Refills: 3 Benny Freeman M.D. Start 31-Jul-2016 Active Carbidopa-Levodopa 25-250 MG Oral Tablet TAKE 1 TABLET BY MOUTH TWICE DAILY NEEDED FOR TREMOR Quantity: 60 Refills: 11 Pete Romero, Benny Start 04-Dec-2016 Active Allergies and Adverse Reactions Name Dates Details Abilify TABS (Allergy) Status: Active Plavix TABS (Allergy) Status: Active Past Medical History Name Dates Details History of Type 1 diabetes mellitus with diabetic neuropathy, unspecified care home insulin use status Status: Resolved Procedures Procedure Dates Details History of Cholecystectomy History of Tonsillectomy History of Catheter Implantable Heart Valves Procedures not documented Immunization Name Dates Details Fluzone High-Dose 0.5 ML Intramuscular Suspension Prefilled Syringe Lot #: [id number] on: 06-Jun-2016 Family History Name Dates Details Family history of hypertension (V17.49, Z82.49) Status: Active Family history of diabetes mellitus (V18.0, Z83.3) Status: Active Family history of lung disease (V19.8, Z83.6) Status: Active Name Dates Details Family history of hypertension (V17.49, Z82.49) Status: Active Family history of diabetes mellitus (V18.0, Z83.3) Status: Active Social History Name Dates Details - Status: Name Dates Details Former smoker Vital Signs Date Test Result Details No Known Vitals to report Results Date Description Value Details Results not documented Plan of Care Name Dates Details Planned Observations Planned Goals not documented Planned Encounters Appointment; Provider: Benny Freeman M.D. On 10-Dec-2016 11:00 Interventions Provided Medication ChangesCarbidopa-Levodopa 25-250 MG Oral Tablet - Renew Instructions Name Dates Details Instructions not documented Encounters Appointment; Vega Robles, Shira Encounter Diagnosis: Problem not documented On 05-Nov-2016 14:30 Appointment; Ariel Freeman M.D. Encounter Diagnosis: Problem not documented On 10-Oct-2016 15:00 Appointment; Benny Freeman M.D. Encounter Diagnosis: Problem not documented On 11-Sep-2016 14:30 Appointment; Benny Freeman M.D. Encounter Diagnosis: Problem not documented On 07-Aug-2016 11:15 Appointment; Benny Freeman M.D. Encounter Diagnosis: Problem not documented On 31-Jul-2016 13:00 Appointment; Benny Freeman M.D. Encounter Diagnosis: Problem not documented On 18-Jun-2016 10:15 Appointment; Ariel Freeman M.D. Encounter Diagnosis: Problem not documented On 06-Jun-2016 15:30 Appointment; Vega Robles P.A. Encounter Diagnosis: Problem not documented On 23-Apr-2016 11:00 Appointment; Guillermo Paulson M.D. Encounter Diagnosis: Problem not documented On 15:45 Appointment; Vega Robles P.A. Encounter Diagnosis: Problem not documented On 15:00 Appointment; Ariel Freeman M.D. Encounter Diagnosis: Problem not documented On 14:00 Appointment; Ariel Freeman M.D. Encounter Diagnosis: Problem not documented On 14:45 Appointment; Guillermo Paulson M.D. Encounter Diagnosis: Problem not documented On 27-Dec-2015 15:45 Appointment; Guillermo Paulson M.D. Encounter Diagnosis: Problem not documented On 20-Oct-2015 16:15
[2017-01-16 07:10] VITALS: BP 115/70
[2017-01-16 08:18] VITALS: BP 132/72
[2017-01-16 08:43] VITALS: BP 128/70
--- NOTE | 2017-01-16 11:23 | OPERATIVE REPORT ---
DATE OF OPERATION: 01/16/2017 PRE-OPERATIVE DIAGNOSIS: Malignant lesion of distal esophagus POST-OPERATIVE DIAGNOSIS: Malignant lesion of distal esophagus OPERATIVE PROCEDURE: Esophagogastroduodenoscopy with biopsies SURGEON: Perez Colin MD ANESTHESIA: Monitored anesthesia care INDICATION: The patient is a 66-year-old with a recently diagnosed esophageal mass in the context of anemia and upper GI bleeding. He had been on Plavix and this has been discontinued due to his anemia and this lesion. He presents today for biopsy for histologic diagnosis so that he can begin therapy. DESCRIPTION OF PROCEDURE: The patient was informed of the risks and benefits and agreed to proceed. His oropharynx was anesthetized with Xylocaine and a bite block was placed. Sedation was administered. The lighted endoscope was passed down the esophagus and this lesion was encountered beginning at approximately 30 cm from the incisors. It extended about 12 cm down to the GE junction, and consisted of a circumferential fungating neoplasm. Biopsies were obtained from its distal portion. There was some retained food in the stomach and I did not pas the scope through the pylorus since this had recently been done. The scope was withdrawn completing the procedure. The patient tolerated the procedure without complications. Pathology is pending.
== END 2017-01-16 09:02 | disposition home or self-care (01) ==
LOC: ASC 06:59
PROVIDERS: ATTEND Surgery
DX: C15.9 Malignant neoplasm of esophagus, unspecified (principal); D64.9 Anemia, unspecified; G20 Parkinson's disease; E11.9 Type 2 diabetes mellitus without complications; G40.909 Epilepsy, unspecified, not intractable, without status epilepticus; F41.9 Anxiety disorder, unspecified; E03.9 Hypothyroidism, unspecified; J45.909 Unspecified asthma, uncomplicated; Z79.02 Long term (current) use of antithrombotics/antiplatelets
CPT/HCPCS: 43239; 88305; 88312; 88360; A9270; J2250; J7120